=== PATIENT | male | born 1935 | race Hispanic/Latino ===

== ENCOUNTER 2017-12-21 04:39 | Emergency (ER) | payer MEDICARE ==
[2017-12-21 04:51] VITALS: BMI 27.3
[2017-12-21] MEDS ORDERED: Acetaminophen-Codeine 300/30 mg Tab PO ONE (05:00)
--- NOTE | 2017-12-21 05:04 | ED PDOC ---
HPI: Back Time Seen by Provider: 12/21/17 04:58 Chief Complaint (Nursing): Trauma Chief Complaint (Provider): back pain History Per: Patient, EMS, Family History/Exam Limitations: no limitations Onset/Duration Of Symptoms: Mins Current Symptoms Are (Timing): Still Present Additional Complaint(s): 82 y/o male history of hypertension, liver tumors, hyperlipidemia brought in by EMS with son for evaluation of low back pain. Patient states he slipped getting out of bed prior to arrival, landed on buttocks and scraped arms trying to hold himself from falling. Patient reports low back pain. Denies head injury, LOC, dizziness, numbness/weakness lower extremities, bowel/bladder incontinence. Past Medical History Reviewed: Historical Data, Nursing Documentation, Vital Signs Vital Signs: Last Vital Signs Temp 98.4 F 12/21/17 04:51 Pulse 70 12/21/17 04:51 Resp 16 12/21/17 04:51 BP 136/68 12/21/17 04:51 Pulse Ox 99 12/21/17 04:51 - Medical History PMH: HTN, Hypercholesterolemia Denies: Chronic Kidney Disease - Surgical History Surgical History: Hernia Repair - Family History Family History: States: Unknown Family Hx - Immunization History Hx Tetanus Toxoid Vaccination: No Hx Influenza Vaccination: No Hx Pneumococcal Vaccination: No - Home Medications Home Medications: Ambulatory Orders Medication Instructions Recorded Aspirin 325 mg PO HS 10/17/15 Diclofenac Sodium [Voltaren] 1 appl TOP QID PRN 10/17/15 Glimepiride [Amaryl] 4 mg PO BID 10/17/15 Hesperidin/Diosmin [Bioflonex 1 tab PO DAILY 10/17/15 Caplet] Lisinopril [Zestril] 5 mg PO DAILY 10/17/15 Tadalafil [Cialis] 20 mg PO DAILY PRN 10/17/15 Tolterodine Tartrate [Detrol LA] 4 mg PO DAILY 10/17/15 Amoxicillin/Clavulanate [Augmentin 1 tab PO BID #14 tab 10/25/15 875 MG-125 MG] Nitrofurantoin Macrocrystals 100 mg PO BID #14 cap 10/25/15 [Macrobid] metFORMIN [glucOPHAGE] 500 mg PO BIDWM #0 tab 10/25/15 - Allergies Allergies/Adverse Reactions: Allergies Allergy/AdvReac Type Severity Reaction Status Date / Time No Known Allergies Allergy Verified 12/21/17 04:51 Review of Systems ROS Statement: Except As Marked, All Systems Reviewed And Found Negative Musculoskeletal: Positive for: Back Pain Physical Exam - Reviewed Nursing Documentation Reviewed: Yes Vital Signs Reviewed: Yes - Physical Exam Appears: Positive for: Well, Non-toxic, No Acute Distress Head Exam: Positive for: ATRAUMATIC, NORMAL INSPECTION, NORMOCEPHALIC Skin: Positive for: Rash (ecchymosis b/l forearms with + superficial skin tears bilaterally) ENT: Positive for: Normal ENT Inspection Cardiovascular/Chest: Positive for: Regular Rate, Rhythm Respiratory: Positive for: Normal Breath Sounds Gastrointestinal/Abdominal: Positive for: Bowel Sounds, Soft, Distended. Negative for: Tenderness Back: Positive for: Vertebral Tenderness (diffuse lspine; no skin changes, bony deformity), Decreased ROM (secondary to pain lower back/buttock), Muscle Spasm (lspine paravertebral tenderness b/l). Negative for: L CVA Tenderness, R CVA Tenderness Extremity: Positive for: Normal ROM Neurologic/Psych: Positive for: Alert, Oriented (x3) - ECG O2 Sat by Pulse Oximetry: 99 - Progress ED Course And Treament: xray pelvis/hips, CT lspine, Tylenol #3, EKG Disposition - Clinical Impression Clinical Impression: Back pain due to injury - Disposition Disposition Time: 06:00 Condition: STABLE Patient Signed Over To: Phil Ma Y Handoff Comments: pending xray, CT, re-eval
[2017-12-21] MEDS ORDERED: Acetaminophen-Codeine 300/30 mg Tab ONE (05:12)
--- NOTE | 2017-12-21 05:35 | ED PDOC ---
- ECG O2 Sat by Pulse Oximetry: 99 Medical Decision Making Medical Decision Making: signout from Wili acevedo pending CT and dispo. ekg nsr rbbb [address] martínez Disposition - Clinical Impression Clinical Impression: Back pain due to injury - POA Present On Arrival: None - Disposition Disposition: Transfer of Care Disposition Time: 07:00 Condition: STABLE
[2017-12-21 06:48] VITALS: BP 143/71; PULSE 63; RESP 18; TEMP 98.7; O2SAT 100
--- NOTE | 2017-12-21 09:35 | CT ---
Date of service: 12/21/2017 PROCEDURE: CT Lumbar Spine without contrast HISTORY: fall, low back pain COMPARISON: None available. TECHNIQUE: Axial computed tomography images were obtained of the lumbar spine without the use of intravenous contrast. Coronal and sagittal reformatted images were created and reviewed. Radiation dose: Total exam DLP = 1838.78 mGy-cm. This CT exam was performed using one or more of the following dose reduction techniques: Automated exposure control, adjustment of the mA and/or kV according to patient size, and/or use of iterative reconstruction technique. FINDINGS: VERTEBRAE: Unremarkable. No fracture. Normal alignment. Significant disc height loss seen at L3-4 with endplate sclerosis and reactive change as well as vacuum disc changes compatible with advanced degenerative disease. Lesser but significant degenerative disc changes seen at L5-S1 where vacuum disc changes are seen within the disc intrinsically. Multilevel spondylosis appears mild exclusive of L3-4. No suspicious lytic or blastic changes. DISCS/SPINAL CANAL/NEURAL FORAMINA: L1-2: Unremarkable. L2-3: Circumferential disc osteophyte complex is identified combining with facet joint degenerative changes encroaching the lateral recesses but without causing significant central canal stenosis grossly. Borderline bilateral neural foraminal stenosis. L3-4: A large circumferential disc osteophyte complex combines with moderate facet joint degenerative changes resulting in moderate central canal stenosis with mild left and moderate to severe right neural foraminal stenosis due to asymmetry in osteophyte development. L4-5: A circumferential disc osteophyte complex combined with fjni-[id number] facet joint degenerative change resulting in moderate central canal stenosis and mild bilateral neural foraminal stenosis. L5-S1: A circumferential disc osteophyte complex combines with moderate facet degenerative changes resulting in [id number] central canal stenosis a mild bilateral neural foraminal stenosis slightly greater the left and right sides. PREVERTEBRAL AND PARASPINAL SOFT TISSUES: No suspicious findings although mildly atherosclerotic and nonaneurysmal abdominal aortic findings are identified. OTHER FINDINGS: Incidental note is made abdominal ascites. Moderate to severe sacroiliac joint degenerative changes. IMPRESSION: 1. No fracture or spondylolisthesis or large disc herniation appreciable. 2. Multilevel degenerative spinal stenosis seen worst at L4-5 and L5-S1 where moderate central canal stenoses are identified. 3. Variable multilevel neural foraminal stenoses bilaterally. 4. Incidental abdominal ascites and advanced sacroiliac joint degenerative changes. Preliminary report provided by Faustino 12/21/2017.
--- NOTE | 2017-12-21 10:28 | RAD ---
Date of service: 12/21/2017 PROCEDURE: BILATERAL HIPS WITH PELVIS RADIOGRAPHS HISTORY: fall COMPARISON: Abdomen pelvis CT 06/05/2016. TECHNIQUE: Frontal views of the pelvis and bilateral hips of been submitted with frog-leg lateral views bilateral hip joints. FINDINGS: No acute fracture is seen throughout the pelvic ring or either hip joint. No dislocation of either hip joint as well. No destructive bony lesion appreciated throughout. Moderate to severe degenerative joint space narrowing seen the bilateral hip joints comprised of joint space narrowing and articular cortical sclerosis with limited osteophyte development present as well. Pubic symphysis appears intact swells remaining pubic bony anatomy. [id number]-[id number] degenerative changes seen the bilateral sacroiliac joints. Local soft tissues reflect surgical clips at the left groin. IMPRESSION: No acute fracture or dislocation bilateral hip joints with the pelvic ring appearing intact throughout as well. 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
--- NOTE | 2017-12-21 17:58 | CARD ---
APPROVED REPORT Date of service: 12/21/2017 EKG Measurement Heart [id number] <Conclusion> Normal sinus rhythm Right bundle branch block Abnormal ECG
== END 2017-12-21 08:57 | disposition home or self-care (01) ==
LOC: H.ER 04:39
DX: M54.9 Dorsalgia, unspecified (principal); W06.XXXA Fall from bed, initial encounter; Y92.003 Bedroom of unspecified non-institutional (private) residence as the place of occurrence of the external cause; E78.00 Pure hypercholesterolemia, unspecified; I10 Essential (primary) hypertension; I45.10 Unspecified right bundle-branch block; M48.061 Spinal stenosis, lumbar region without neurogenic claudication; Z79.82 Long term (current) use of aspirin; Z79.84 Long term (current) use of oral hypoglycemic drugs; M85.80 Other specified disorders of bone density and structure, unspecified site

== ENCOUNTER 2018-01-14 20:18 | Inpatient (IN) | payer MEDICARE ==
[2018-01-14 20:20] VITALS: BMI 27.3
--- NOTE | 2018-01-14 21:27 | ED PDOC ---
HPI: Altered Mental Status Time Seen by Provider: 01/14/18 20:29 Chief Complaint (Nursing): Abdominal Pain Chief Complaint (Provider): Generalized Weakness History Per: Family History/Exam Limitations: Clinical Condition (Altered Mental Status) Onset/Duration Of Symptoms: Days (x3) Current Symptoms Are (Timing): Still Present Additional Complaint(s): 82 year old [place] male, with a history of liver cirrhosis and liver cancer, was brought to the ER by family for progressively generalized weakness for the last 3 days. Family reports patient had an altered mental status and sudden onset rectal bleeding just prior to arrival. Patient was just discharged from [place] on Wednesday after admission for severe ascites and was given Lasix at the time. Swelling improved but mental status continued to progress. Patient was discharged but family reports patient continued to have altered mental status. Today, family reports that patient will not open his eyes and will not talk or get out of bed. History is limited due to patient's clinical condition of altered mental status. History was obtained from the family. [facility]: Dr. Vazquez. Past Medical History Reviewed: Historical Data, Nursing Documentation, Vital Signs Vital Signs: Last Vital Signs Temp 98.4 F 01/14/18 20:26 Pulse 100 H 01/14/18 20:26 Resp 20 01/14/18 20:26 BP 149/73 01/14/18 20:26 Pulse Ox 100 01/14/18 20:26 - Medical History PMH: HTN, Hypercholesterolemia Denies: Chronic Kidney Disease Other PMH: Liver cirrhosis, liver cancer - Surgical History Surgical History: Hernia Repair - Family History Family History: States: Unknown Family Hx - Immunization History Hx Tetanus Toxoid Vaccination: No Hx Influenza Vaccination: No Hx Pneumococcal Vaccination: No - Home Medications Home Medications: Ambulatory Orders Medication Instructions Recorded RX: Aspirin 325 mg PO HS 10/17/15 RX: Lisinopril [Zestril] 5 mg PO DAILY 10/17/15 Celecoxib [Celebrex] 200 mg PO DAILY 01/14/18 Ciprofloxacin/Dexamethasone 4 drop TOP BID 01/14/18 [Ciprodex Otic] Furosemide [Lasix] 20 mg PO DAILY 01/14/18 Mirtazapine [Remeron] 30 mg PO HS 01/14/18 Omeprazole 40 mg PO DAILY 01/14/18 RX: Megestrol [Megace] 40 mg PO BID 01/14/18 Tolterodine [Detrol LA] 1 cap PO DAILY 01/14/18 - Allergies Allergies/Adverse Reactions: Allergies Allergy/AdvReac Type Severity Reaction Status Date / Time No Known Allergies Allergy Verified 01/14/18 20:26 Review of Systems Review Of Systems: ROS cannot be obtained secondary to pt's inabilty to answer questions. (Unable to obtain from patient secondary to clinical condition. History obtained from family. ROS as per HPI.) Constitutional: Positive for: Weakness (generalized) Gastrointestinal: Positive for: Other (Rectal bleeding) Neurological: Positive for: Altered Mental Status Physical Exam - Reviewed Nursing Documentation Reviewed: Yes Vital Signs Reviewed: Yes - Physical Exam Appears: Positive for: In Acute Distress (In acute neurological distress) Head Exam: Positive for: ATRAUMATIC, NORMOCEPHALIC Skin: Positive for: Warm, Dry, Pallor Eye Exam: Positive for: EOMI (roving eye movements). Negative for: Scleral icterus ENT: Positive for: Pharynx Is (clear), Other (Dry mucous membranes; gag reflex intact) Neck: Positive for: Painless ROM, Trachea Midline Cardiovascular/Chest: Positive for: Regular Rate, Rhythm, Edema. Negative for: Murmur Respiratory: Positive for: Normal Breath Sounds. Negative for: Respiratory Distress Gastrointestinal/Abdominal: Positive for: Soft, Distended (diffusely), Other ((+) fluid wave consistent with ascites). Negative for: Mass, Guarding, Rebound Back: Positive for: Normal Inspection. Negative for: Decreased ROM Extremity: Positive for: Pedal Edema, Other (Bilateral upper extremities have multiple areas of ecchymosis as well as large superficial abrsaions; bilateral legs have 2+ pitting leg edema and pedal edema; diffuse erythema of the skin of the anterior tibia with oval shaped superficial lesion to the left lateral lower leg) Lymphatic: Negative for: Adenopathy Neurologic/Psych: Positive for: Other (Obtunded; asterixis in extremities). Negative for: Oriented, Motor/Sensory Deficits (or sensory deficits) - Laboratory Results Result Diagrams: 01/17/18 04:35 01/17/18 04:35 - ECG O2 Sat by Pulse Oximetry: 100 (RA) Pulse Ox Interpretation: Normal Medical Decision Making Medical Decision Making: Initial Impression: Altered mental status Differential includes but not limited to hepatic encephalopathy, sepsis, fluid overload, severe ascites, liver failure, electrolyte abnormality, dehydration, GI bleed, anemia Initial Plan: --Type and screen stat --VBG stat --CT abd/pelvis --CT head --ECG --Ammonia stat --B-type natriuretic stat --CMP --Lipase stat --Magnesium stat --Phosphorous stat --CBC --Partial thromboplastin time --Prothrombin time --Chest X-ray --Blood culture --Urine culture --Urinalysis CT OF THE ABDOMEN AND PELVIS WITHOUT CONTRAST Indications: Abdominal distention. Comparison: 06/05/16 Technique: Volumetric acquisition of the abdomen and pelvis without contrast. Multiplanar reformatted images. Findings: In the interval since the prior study, there apparently has been a multifocal hepatic embolization for tumor. The liver is misshapen when compared to the prior study contains areas of contrast. There is abdominal and pelvic ascites. There is ascites in both inguinal hernias, or right greater than left.extra-abdominal pelvic tissues demonstrates streaky densities within the fat suggesting anasarca.the heart is not enlarged. There is a small left pleural effusionthere is no retroperitoneal. The abdominal aorta is normal in course and caliber. Kidneys unremarkable. Impression: Study lack historical information. When compared to the prior study, it appears patient has undergone embolization or chemoembolizationof a hepatic tumor and development of ascites. Electronically signed on Jan 14, 2018 10:07:58 PM EST by: Colton Levy M.D., Certified by ABR NONCONTRAST CT OF THE BRAIN Indications: Altered mental status. Comparison: None. Technique: Volumetric acquisition of the head without intravenous contrast. Multiplanar reformatted images. Findings:there is opacification of the majority of the left mastoid air cells, likely representing mastoiditis, correlate clinically.the external auditory canal on the left does not appear patent. There are age-appropriate involutional changes. The fourth, third, lateral ventricles are normal size, position, and configuration. There is no midline shift, discernible mass effect, or vascular territorial edema, subdural collections, or recent intracranial hemorrhage. The visualized portions of paranasal sinuses and the right mastoid air cells are well-aerated. Impression: Left mastoiditis. Electronically signed on Jan 14, 2018 9:33:03 PM EST by: Colton Levy M.D., Certified by ABR Elevated lactate Markedly elevated ammonia. Mental status c/w hepatic encephalopathy. Lactulose ordered. WEN Flores Hospitalist for admission (for [facility] physician and ICU.) Scribe Attestation: Documented by Charanjit Bar acting as a scribe for Annia Rossi MD. Provider Scribe Attestation: All medical record entries made by the Scribe were at my direction and personally dictated by me. I have reviewed the chart and agree that the record accurately reflects my personal performance of the history, physical exam, m edical decision making, and the department course for this patient. I have also personally directed, reviewed, and agree with the discharge instructions and disposition. Disposition - Clinical Impression Clinical Impression: Hepatic encephalopathy Counseled Patient/Family Regarding: Studies Performed, Diagnosis - Disposition Disposition Time: 23:00 Condition: CRITICAL - Pt Status Changed To: Hospital Disposition Of: Inpatient - Admit Certification Admit to Inpatient:: After my assessment, the patient will require hospitalization for at least two midnights. This is because of the severity of symptoms shown, intensity of services needed, and/or the medical risk in this patient being treated as an outpatient. - POA Present On Arrival: Falls Or Trauma (risk)
[2018-01-14 22:03] LABS: VENOUS BLOOD GAS BASE EXCESS 2.2 mmol/L (0.0-2.0); VENOUS BLOOD GAS PCO2 33 mmHg (40-60); VENOUS BLOOD GAS PO2 46 mm/Hg (30-55); VENOUS BLOOD PH 7.49 (7.32-7.43)
[2018-01-14 22:28] LABS: BASO % 0.7 % (0.0-2.0); EOS # 0.2 K/uL (0.0-0.7); EOS % 4.2 % (0.0-4.0); HEMOGLOBIN 11.6 g/dL (12.0-18.0); LYMPH # 0.8 K/uL (1.0-4.3); LYMPH % 16.5 % (20.0-40.0); MEAN CORPUSCULAR HEMOGLOBIN 34.6 pg (27.0-31.0); MEAN CORPUSCULAR HGB CONC 33.3 g/dL (33.0-37.0); MEAN PLATELET VOLUME 8.4 fl (7.2-11.7); MONO # 0.6 K/uL (0.0-0.8); MONO % 11.3 % (0.0-10.0); NEUT # 3.4 K/uL (1.8-7.0); NEUT % 67.3 % (50.0-75.0); NRBC % 0.1 % (0.0-0.0); RBC 3.36 Mil/uL (4.40-5.90); RED CELL DISTRIBUTION WIDTH 14.8 % (11.5-14.5); WHITE BLOOD COUNT 5.1 K/uL (4.8-10.8)
[2018-01-14 22:34] LABS: INR 1.3; PROTHROMBIN TIME 14.4 Seconds (9.8-13.1)
[2018-01-14 22:37] LABS: PARTIAL THROMBOPLASTIN TIME 28.1 Seconds (25.6-37.1)
[2018-01-14 22:48] LABS: ALB/GLOB RATIO 0.6 (1.0-2.1); ALBUMIN 2.4 g/dL (3.5-5.0); ALT/SGPT 60 U/L (21-72); AST/SGOT 112 U/L (17-59); BLOOD UREA NITROGEN 27 mg/dl (9-20); CALCIUM 8.4 mg/dL (8.4-10.2); GFR NON-AFRICAN AMERICAN > 60; LIPASE 188 U/L (23-300)
[2018-01-14 22:55] LABS: B-TYPE NATRIURETIC PEPTIDE 734 pg/ml (0-900)
--- NOTE | 2018-01-14 23:17 | CP.PCM.HP ---
History of Present Illness - History of Present Illness History of Present Illness: [facility]: Dr. Vazquez. Chief Complaint: Altered mental status/Abdominal pain The patient was seen and examined in the ED HPI: The hx was obtained from the Patient's son as the patient was in a state of lethargy. This is an 82 years old male with hx of HTN; HLD; Liver cancer receiving chemotherapy. He was brought to the ED because of 3 days of progressive worsening lethargy, generalized weakness, not eating not opening the eyes and today unset of rectal bleeding. Through this time his abdomen has been increasing in size with complaint of abdominal pain. He was admitted with Ascites and discharged from [facility] 5 days prior to this admission. PMH: HTN; HLD; Liver Cirrhosis, Liver Cancer; anemia; Thrombocytopenia PSH: Hernia repair; multiple problems with the liver SH: Former Smoker; No Alcohol ; No illegal drug use; live with family FH: No known Family hx Medication: Reviewed Present on Admission - Present on Admission Any Indicators Present on Admission: No History of DVT/PE: No History of Uncontrolled Diabetes: No Urinary Catheter: No Decubitus Ulcer Present: No Review of Systems - Review of Systems Review of Systems: Review of systems limited as the patient is lethargic. Past Patient History - Infectious Disease Hx of Infectious Diseases: None - Tetanus Immunizations Tetanus Immunization: Unknown - Past Medical History & Family History Past Medical History?: Yes - Past Social History Smoking Status: Former Smoker Chewing Tobacco Use: No Cigar Use: No Alcohol: None Drugs: Denies Home Situation {Lives}: With Family - CARDIAC Hx Hypercholesterolemia: Yes Hx Hypertension: Yes - PULMONARY Hx Respiratory Disorders: No - NEUROLOGICAL Hx Neurological Disorder: No - HEENT Hx HEENT Problems: No - RENAL Hx Chronic Kidney Disease: No - ENDOCRINE/METABOLIC Hx Diabetes Mellitus Type 2: Yes - HEMATOLOGICAL/ONCOLOGICAL Hx Blood Disorders: Yes Hx Cancer: Yes (Liver) - INTEGUMENTARY Hx Dermatological Problems: No - MUSCULOSKELETAL/RHEUMATOLOGICAL Hx Falls: No - GASTROINTESTINAL Hx Gastrointestinal Disorders: No - GENITOURINARY/GYNECOLOGICAL Hx Genitourinary Disorders: No - PSYCHIATRIC Hx Psychophysiologic Disorder: No Hx Substance Use: No - SURGICAL HISTORY Hx Surgeries: Yes Hx Herniorrhaphy: Yes (multiple) Other/Comment: son reports multiple procedures on liver-son does not know specifics - ANESTHESIA Hx Anesthesia: Yes Hx Anesthesia Reactions: No Hx Malignant Hyperthermia: No Meds Allergies/Adverse Reactions: Allergies Allergy/AdvReac Type Severity Reaction Status Date / Time No Known Allergies Allergy Verified 01/14/18 20:26 Physical Exam - Constitutional Appears: Confused, Chronically Ill - Head Exam Head Exam: ATRAUMATIC, NORMAL INSPECTION, NORMOCEPHALIC - Eye Exam Eye Exam: EOMI - ENT Exam ENT Exam: Mucous Membranes Dry, Normal Exam, Normal External Ear Exam - Neck Exam Neck exam: Positive for: Full Rom, Normal Inspection. Negative for: Tenderness - Respiratory Exam Respiratory Exam: Clear to Auscultation Bilateral. absent: Rales, Rhonchi, Wheezes - Cardiovascular Exam Cardiovascular Exam: REGULAR RHYTHM, RRR, +S1, +S2 - GI/Abdominal Exam Additional comments: Abdomen distended, tense, with liquid thrills. - Rectal Exam Rectal Exam: Deferred - Extremities Exam Additional comments: 2+ edema to both lower extremities - Back Exam Back exam: NORMAL INSPECTION - Neurological Exam Additional comments: Lethargic but with agitation, no facial droop, moving both upper etremities, good motor tone. - Psychiatric Exam Psychiatric exam: Agitated - Skin Additional comments: Both legs with erythematos rash of stasis dermatitis Multiple patches of ecchymosis at both upper extremities Results - Vital Signs Recent Vital Signs: Last Vital Signs Temp 98.4 F 01/14/18 20:26 Pulse 100 H 01/14/18 20:26 Resp 20 01/14/18 20:26 BP 149/73 01/14/18 20:26 Pulse Ox 100 01/14/18 22:15 - Labs Result Diagrams: 01/14/18 22:24 01/14/18 22:24 Labs: Laboratory Results - last 24 hr 01/14/18 01/14/18 01/14/18 21:50 22:24 22:24 WBC RBC Hgb Hct MCV MCH MCHC RDW Plt Count MPV Neut % (Auto) Lymph % (Auto) [place] % (Auto) Eos % (Auto) Baso % (Auto) Neut # (Auto) Lymph # (Auto) [place] # (Auto) Eos # (Auto) Baso # (Auto) PT INR APTT pO2 46 VBG pH 7.49 H VBG pCO2 33 L VBG HCO3 26.3 VBG Total CO2 26.1 VBG O2 Sat (Calc) 87.6 H VBG Base Excess 2.2 H VBG Potassium 3.9 Sodium 137.0 136 Chloride 106.0 107 Glucose 195 H Lactate 2.2 H FiO2 21.0 Potassium 4.1 Carbon Dioxide 23 Anion Gap 10 BUN 27 H Creatinine 1.1 Est GFR ( Amer) > 60 Est GFR (Non-Af Amer) > 60 Random Glucose 191 H Calcium 8.4 Phosphorus 2.7 Magnesium 1.7 Total Bilirubin 2.1 H AST 112 H ALT 60 Alkaline Phosphatase 217 H Ammonia 138 H* NT-Pro-B Natriuret Pep 734 Total Protein 6.3 Albumin 2.4 L Globulin 4.0 H Albumin/Globulin Ratio 0.6 L Lipase 188 Venous Blood Potassium 3.9 01/14/18 01/14/18 22:24 22:24 WBC 5.1 RBC 3.36 L Hgb 11.6 L Hct 35.0 MCV 104.0 H D MCH 34.6 H MCHC 33.3 RDW 14.8 H Plt Count 124 L D MPV 8.4 Neut % (Auto) 67.3 Lymph % (Auto) 16.5 L [place] % (Auto) 11.3 H Eos % (Auto) 4.2 H Baso % (Auto) 0.7 Neut # (Auto) 3.4 Lymph # (Auto) 0.8 L [place] # (Auto) 0.6 Eos # (Auto) 0.2 Baso # (Auto) 0.0 PT 14.4 H INR 1.3 APTT 28.1 pO2 VBG pH VBG pCO2 VBG HCO3 VBG Total CO2 VBG O2 Sat (Calc) VBG Base Excess VBG Potassium Sodium Chloride Glucose Lactate FiO2 Potassium Carbon Dioxide Anion Gap BUN Creatinine Est GFR ( Amer) Est GFR (Non-Af Amer) Random Glucose Calcium Phosphorus Magnesium Total Bilirubin AST ALT Alkaline Phosphatase Ammonia NT-Pro-B Natriuret Pep Total Protein Albumin Globulin Albumin/Globulin Ratio Lipase Venous Blood Potassium - Impressions Impression: Sinus Rhythm 93/min RBBB with 1st degree AV block left fascicular block - Imaging and Cardiology Chest x-ray Status: Image reviewed by me Additional comment: Opacity at the left base CT scan - head Status: Image reviewed by me, Report reviewed by me Additional comment: No intracraneal bleed Left mastoiditis CT scan - abdomen Status: Image reviewed by me, Report reviewed by me Additional comment: When compared to the prior study, it appears, patient has undergone embolization or chemoembolization of a hepatic tumor and development of ascites/ Assessment & Plan - Assessment and Plan (Free Text) Assessment: #. Hepatic Encephalopathy #. Liver Cancer wtih Ascites #. Anemia #. Thrombocytopenia #. Azotemia #. Hyperglycemia Plan: 82 years old male with hx of HTN; HLD; Liver cancer receiving chemotherapy. He was brought to the ED because of 3 days of progressive worsening abdomen distention and pain, lethargy, generalized weakness, not eating not opening the eyes and today unset of rectal bleeding. He was admitted with Ascites and discharged from [facility] 5 days prior to this admission. #. Hepatic Encephalopathy with hyperammonemia - Consult Orchestrator Dr Segovia - NPO except meds - Swallow evaluation(The Patient failed [place] evaluation by nurses) - neuro checks Q2H - Lactulose Per rectum Q6H - IV Fluids with Ringer's Lactate - Lasix IVP #. Liver Cancer with Ascites - Consult Oncology Dr Russell - GI on consult - lasix IV - Consult IR for paracentesis #. Anemia with Thrombocytopenia - Hematology on consult - follow Hb and Platelets #. Hyperglycemia - follow HbA1c #. DVT Prophylaxis: SCD - Code Status: Full - Date & Time Date: 01/14/18 Time: 23:17
[2018-01-14] MEDS ORDERED: Lactated Ringer's 1,000 ML IV SCH (23:45)
[2018-01-15] MEDS ORDERED: Lactulose 10 gm/15 ml (Rectal Use) PR SCH (04:00)
[2018-01-15 06:24] LABS: BASO % 0.7 % (0.0-2.0); EOS # 0.2 K/uL (0.0-0.7); EOS % 4.7 % (0.0-4.0); HEMOGLOBIN 12.1 g/dL (12.0-18.0); LYMPH # 0.9 K/uL (1.0-4.3); MEAN CELL VOLUME 103.2 fl (80.0-94.0); MEAN CORPUSCULAR HGB CONC 33.9 g/dL (33.0-37.0); MEAN PLATELET VOLUME 8.3 fl (7.2-11.7); MONO # 0.6 K/uL (0.0-0.8); MONO % 12.3 % (0.0-10.0); NEUT # 3.4 K/uL (1.8-7.0); NEUT % 65.3 % (50.0-75.0); NRBC % 0.2 % (0.0-0.0); RBC 3.45 Mil/uL (4.40-5.90); RED CELL DISTRIBUTION WIDTH 14.7 % (11.5-14.5); WHITE BLOOD COUNT 5.1 K/uL (4.8-10.8)
[2018-01-15 06:48] LABS: ALB/GLOB RATIO 0.6 (1.0-2.1); ALBUMIN 2.4 g/dL (3.5-5.0); ALT/SGPT 60 U/L (21-72); AST/SGOT 115 U/L (17-59); BLOOD UREA NITROGEN 25 mg/dl (9-20); CALCIUM 8.6 mg/dL (8.4-10.2); GFR NON-AFRICAN AMERICAN > 60
--- NOTE | 2018-01-15 07:11 | CT ---
Date of service: 01/14/2018 PROCEDURE: CT HEAD WITHOUT CONTRAST. HISTORY: AMS COMPARISON: None available. TECHNIQUE: Axial computed tomography images were obtained through the head/brain without intravenous contrast. Radiation dose: Total exam DLP = 929.78 mGy-cm. This CT exam was performed using one or more of the following dose reduction techniques: Automated exposure control, adjustment of the mA and/or kV according to patient size, and/or use of iterative reconstruction technique. FINDINGS: HEMORRHAGE: No intracranial hemorrhage. BRAIN: No mass effect or edema. Mild atrophy and chronic periventricular white matter ischemic disease. VENTRICLES: Unremarkable. No hydrocephalus. CALVARIUM: Unremarkable. PARANASAL SINUSES: Unremarkable as visualized. No significant inflammatory changes. MASTOID AIR CELLS: Unremarkable as visualized. No inflammatory changes. OTHER FINDINGS: None. IMPRESSION: No acute hemorrhage.
--- NOTE | 2018-01-15 07:44 | RAD ---
Date of service: 01/14/2018 HISTORY: AMS COMPARISON: No prior. FINDINGS: LUNGS: Bilateral interstitial changes. PLEURA: No significant pleural effusion identified, no pneumothorax apparent. CARDIOVASCULAR: No aortic atherosclerotic calcification present. Normal cardiac size. No pulmonary vascular congestion. OSSEOUS STRUCTURES: No significant abnormalities. VISUALIZED UPPER ABDOMEN: Normal. OTHER FINDINGS: None. IMPRESSION: Bilateral interstitial changes probably fibrosis.
[2018-01-15] MEDS ORDERED: Chlorhexidine Gluconate 1 APPL/PKT TP ONE (07:57)
--- NOTE | 2018-01-15 08:24 | CT ---
Date of service: 01/14/2018 PROCEDURE: CT Abdomen and Pelvis without intravenous contrast HISTORY: Abd distension COMPARISON: 06/05/2016 TECHNIQUE: Technique. Contrast dose: Radiation dose: Total exam DLP = 966.96 mGy-cm. This CT exam was performed using one or more of the following dose reduction techniques: Automated exposure control, adjustment of the mA and/or kV according to patient size, and/or use of iterative reconstruction technique. FINDINGS: LOWER THORAX: Small left pleural effusion. LIVER: Marked retraction and deformity of the liver with multiple calcified masses compatible with chemoembolization. GALLBLADDER AND BILE DUCTS: Unremarkable. PANCREAS: Unremarkable. No gross lesion or ductal dilatation. SPLEEN: Unremarkable. ADRENALS: Unremarkable. No mass. KIDNEYS AND URETERS: Unremarkable. No hydronephrosis. No solid mass. VASCULATURE: Unremarkable. No aortic aneurysm. No aortic atherosclerotic calcification or mural plaque present. BOWEL: Unremarkable. No obstruction. No gross mural thickening. APPENDIX: Unremarkable. Normal appendix. PERITONEUM: Severe ascites. LYMPH NODES: Unremarkable. No enlarged lymph nodes. BLADDER: Unremarkable. REPRODUCTIVE: Unremarkable. BONES: No acute fracture. OTHER FINDINGS: None. IMPRESSION: Marked retraction and deformity of the liver with multiple calcified masses compatible with chemoembolization. Severe ascites. Small left pleural effusion.
--- NOTE | 2018-01-15 13:03 | CP.PCM.PN ---
<Sarahy Uriostegui Zoe - Last Filed: 01/15/18 13:26> Subjective - Date & Time of Evaluation Date of Evaluation: 01/15/18 Time of Evaluation: 08:50 - Subjective Subjective: Patient was seen, and examined at bedside this morning in ICU unit with attending, Dr. Suarez. Pt is seen lethargic, with minimal responsive to verbal, and tactile stimuli. Nurse reports that pt has not had a bowel movements since admission. NGT inserted by nurse this morning. Afebrile. Godinez Cath in placed. I & O Noted. No events overnight. Objective - Vital Signs/Intake and Output Vital Signs (last 24 hours): Temp Pulse Resp BP Pulse Ox 99.1 F 92 H 19 100/52 L 98 01/15/18 12:00 01/15/18 12:00 01/15/18 12:00 01/15/18 12:00 01/15/18 12:00 Intake and Output: 01/15/18 01/15/18 06:59 18:59 Intake Total 300 375 Output Total 3000 Balance -2700 375 - Medications Medications: Current Medications Furosemide (Lasix) 20 mg IVP DAILY [facility] Lactated Ringer's (Lactated Ringer's) 1,000 mls @ 75 mls/hr IV .[id number] [facility] Last Admin: 01/15/18 02:01 Dose: 75 mls/hr Lactulose (Enulose) 20 gm NG Q6 [facility] Last Admin: 01/15/18 09:54 Dose: 20 gm Pantoprazole Sodium (Protonix Inj) 40 mg IVP DAILY [facility] Last Admin: 01/15/18 08:42 Dose: 40 mg - Labs Labs: 01/15/18 05:25 01/15/18 05:25 PT 14.4 Seconds (9.8-13.1) H 01/14/18 22:24 INR 1.3 01/14/18 22:24 APTT 28.1 Seconds (25.6-37.1) 01/14/18 22:24 - Skin Additional comments: Constitutional Appears: Lethargic, Chronically Ill - Head Exam Head Exam: ATRAUMATIC, NORMAL INSPECTION, NORMOCEPHALIC - Eye Exam Eye Exam: EOMI - ENT Exam ENT Exam: Mucous Membranes Dry, Normal Exam, Normal External Ear Exam - Neck Exam Neck exam: Positive for: Full Rom, Normal Inspection. Negative for: Tenderness - Respiratory Exam Respiratory Exam: Clear to Auscultation Bilateral. absent: Rales, Rhonchi, Wheezes - Cardiovascular Exam Cardiovascular Exam: REGULAR RHYTHM, RRR, +S1, +S2 - GI/Abdominal Exam Additional comments: Abdomen distended, tense, with liquid thrills. - Extremities Exam Additional comments: 2+ edema to both lower extremities - Back Exam Back exam: NORMAL INSPECTION - Neurological Exam Additional comments: Lethargic but without agitation, no facial droop, moving both upper etremities, good motor tone. - Skin Additional comments: Both legs with erythematos rash of stasis dermatitis Multiple patches of ecchymosis at both upper extremities Assessment and Plan - Assessment and Plan (Free Text) Assessment: 82 years old male with hx of HTN; HLD; Liver cancer receiving chemotherapy. He was brought to the ED because of 3 days of progressive worsening abdomen distention and pain, lethargy, generalized weakness, not eating not opening the eye, and episode of rectal bleeding. He was admitted with Ascites and discharged from [facility] 5 days prior to this admission. On admission ammonia levels elevated. Pt BERENICE most likely 2/2 Hepatic encephalopathy. Plan: Hepatic Encephalopathy with hyperammonemia - Consult Data Management Dr Segovia. Pending eval. Recs are appreciated - NPO except meds -will transfer to Tele unit - Swallow evaluation (The Patient failed Swallow evaluation on admission by nurses) -NG tube inserted by nurse in ICU unit -DC Lactulose Per rectum Q6H -Start Lactulose 20 gm Q6 ant to get 1-2 BMs daily -held IV Fluids for now due to significant ascitis -held Lasix IVP for now, I& O checked: balance -2700 ml Liver Cancer with Ascites - Consult Oncology Dr Russell. Pending eval. Recs are appreciated - GI on consult. Pending eval. Recs are appreciated -held Lasix IVP for now, I& O checked: balance -2700 ml - Consult IR for paracentesis Anemia with Thrombocytopenia - Hematology on consult - Hgb stable - Platelets improved from 124 to 134 Hyperglycemia - follow HbA1c DVT Prophylaxis: SCD reported rectal bleeding on admission - Code Status: Full <Jessica Suarez - Last Filed: 01/16/18 09:26> Objective - Vital Signs/Intake and Output Vital Signs (last 24 hours): Temp Pulse Resp BP Pulse Ox 98.2 F 91 H 17 129/69 99 01/16/18 04:00 01/16/18 05:57 01/16/18 05:57 01/16/18 05:57 01/16/18 05:57 Intake and Output: 01/16/18 01/16/18 06:59 18:59 Intake Total 770 Output Total 350 Balance 420 - Medications Medications: Current Medications Furosemide (Lasix) 20 mg IVP DAILY [facility] Potassium Chloride/Dextrose/Sod Cl (Potassium Chl 20 Meq In D5-1/2ns) 1,000 mls @ 50 mls/hr IV .Q20H ANT Stop: 01/16/18 15:55 Last Admin: 01/15/18 16:27 Dose: 50 mls/hr Dextrose/Sodium Chloride (Dextrose 5%/0.9% Ns 1000 Ml) 1,000 mls @ 50 mls/hr IV .Q20H ANT Stop: 01/17/18 06:58 Last Admin: 01/16/18 09:03 Dose: 50 mls/hr Lactulose (Enulose) 20 gm NG Q6 ANT Last Admin: 01/16/18 09:11 Dose: 20 gm Pantoprazole Sodium (Protonix Inj) 40 mg IVP DAILY [facility] Last Admin: 01/16/18 09:04 Dose: 40 mg Rifaximin (Xifaxan) 550 mg PO BID [facility]; Protocol Last Admin: 01/16/18 09:06 Dose: 550 mg - Labs Labs: 01/16/18 05:30 01/16/18 05:30 PT 14.4 Seconds (9.8-13.1) H 01/14/18 22:24 INR 1.3 01/14/18 22:24 APTT 28.1 Seconds (25.6-37.1) 01/14/18 22:24 Attending/Attestation - Attestation I have personally seen and examined this patient.: Yes I have fully participated in the care of the patient.: Yes I have reviewed all pertinent clinical information, including history, physical exam and plan: Yes Notes (Text): 01/16/18 09:25 Seen examined and discussed with resident. Agree with findings and plan as above. Cont to be lethargic, not easily arousable. Resume maintenance fluids as patient is NPO, hold lasix. GI consult appreciated, Lactulose [id number], add Rifaximin BID. 01/16/18 09:26
[2018-01-15] MEDS ORDERED: Potassium Chloride 20 MEQ in Dextrose 5%-0.45% NS 500 ML IV SCH (15:30)
[2018-01-15] MEDS ORDERED: Potassium Ch 20mEq in D5-1/2NS 1,000 ML IV SCH (16:00)
--- NOTE | 2018-01-15 17:37 | CARD ---
APPROVED REPORT Date of service: 01/14/2018 EKG Measurement Heart [id number] <Conclusion> Sinus rhythm with 1st degree AV block Right bundle branch block Left anterior fascicular block Bifascicular block Abnormal ECG
[2018-01-15 17:38] LABS: SQUAMOUS EPITHIAL 1 /hpf (0-5); URINE BACTERIA RARE (<OCC); URINE BILIRUBIN NEGATIVE (NEGATIVE); URINE BLOOD NEGATIVE (NEGATIVE); URINE CLARITY SLIGHTY-CLOUDY (Clear); URINE COLOR AMBER (YELLOW); URINE GLUCOSE (UA) NEG (Normal); URINE LEUKOCYTE ESTERASE NEG Leu/uL (Negative); URINE PROTEIN NEGATIVE (NEGATIVE)
[2018-01-16 06:14] LABS: BASO % 0.5 % (0.0-2.0); EOS # 0.2 K/uL (0.0-0.7); EOS % 3.5 % (0.0-4.0); HEMOGLOBIN 12.7 g/dL (12.0-18.0); LYMPH # 0.8 K/uL (1.0-4.3); LYMPH % 14.9 % (20.0-40.0); MEAN CELL VOLUME 103.8 fl (80.0-94.0); MEAN CORPUSCULAR HEMOGLOBIN 35.2 pg (27.0-31.0); MEAN CORPUSCULAR HGB CONC 33.9 g/dL (33.0-37.0); MONO # 0.6 K/uL (0.0-0.8); NEUT # 3.6 K/uL (1.8-7.0); NEUT % 70.1 % (50.0-75.0); NRBC % 0.2 % (0.0-0.0); RBC 3.59 Mil/uL (4.40-5.90); RED CELL DISTRIBUTION WIDTH 14.5 % (11.5-14.5); WHITE BLOOD COUNT 5.2 K/uL (4.8-10.8)
[2018-01-16 06:35] LABS: BLOOD UREA NITROGEN 28 mg/dl (9-20); CALCIUM 8.5 mg/dL (8.4-10.2); GFR NON-AFRICAN AMERICAN > 60
[2018-01-16] MEDS: Dextrose 5%/0.9% NS 1,000 ML IV SCH (09:03)
--- NOTE | 2018-01-16 09:38 | CP.PCM.PN ---
<Sarahy Uriostegui - Last Filed: 01/16/18 11:28> Subjective - Date & Time of Evaluation Date of Evaluation: 01/16/18 Time of Evaluation: 08:10 - Subjective Subjective: Patient seen, and examined at bedside this morning in ICU unit. Patient slightly responsive to verbal stimuli, but still lethargic. Opening eyes intermittently. As per nurse report he had a bowel movement, soft pasty, brownish color early this morning. Afebrile. I & O reviewed. Objective - Vital Signs/Intake and Output Vital Signs (last 24 hours): Temp Pulse Resp BP Pulse Ox 98.2 F 91 H 17 129/69 99 01/16/18 04:00 01/16/18 05:57 01/16/18 05:57 01/16/18 05:57 01/16/18 05:57 Intake and Output: 01/16/18 01/16/18 06:59 18:59 Intake Total 770 Output Total 350 Balance 420 - Medications Medications: Current Medications Furosemide (Lasix) 20 mg IVP DAILY [facility] Potassium Chloride/Dextrose/Sod Cl (Potassium Chl 20 Meq In D5-1/2ns) 1,000 mls @ 50 mls/hr IV .Q20H ANT Stop: 01/16/18 15:55 Last Admin: 01/15/18 16:27 Dose: 50 mls/hr Dextrose/Sodium Chloride (Dextrose 5%/0.9% Ns 1000 Ml) 1,000 mls @ 50 mls/hr IV .Q20H ANT Stop: 01/17/18 06:58 Last Admin: 01/16/18 09:03 Dose: 50 mls/hr Lactulose (Enulose) 20 gm NG Q6 ANT Last Admin: 01/16/18 09:11 Dose: 20 gm Pantoprazole Sodium (Protonix Inj) 40 mg IVP DAILY [facility] Last Admin: 01/16/18 09:04 Dose: 40 mg Rifaximin (Xifaxan) 550 mg PO BID [facility]; Protocol Last Admin: 01/16/18 09:06 Dose: 550 mg - Labs Labs: 01/16/18 05:30 01/16/18 05:30 PT 14.4 Seconds (9.8-13.1) H 01/14/18 22:24 INR 1.3 01/14/18 22:24 APTT 28.1 Seconds (25.6-37.1) 01/14/18 22:24 - Skin Additional comments: Skin Additional comments: Constitutional Appears: Lethargic, but more responsive, Chronically Ill - Head Exam Head Exam: ATRAUMATIC, NORMAL INSPECTION, NORMOCEPHALIC - Eye Exam Eye Exam: EOMI - ENT Exam ENT Exam: Mucous Membranes Dry, Normal Exam, Normal External Ear Exam - Neck Exam Neck exam: Positive for: Full Rom, Normal Inspection. Negative for: Tenderness - Respiratory Exam Respiratory Exam: Clear to Auscultation Bilateral. absent: Rales, Rhonchi, Wheezes - Cardiovascular Exam Cardiovascular Exam: REGULAR RHYTHM, RRR, +S1, +S2 - GI/Abdominal Exam Additional comments: Abdomen distended, tense, with liquid thrills. - Extremities Exam Additional comments: 2+ edema to both lower extremities - Back Exam Back exam: NORMAL INSPECTION Assessment and Plan - Assessment and Plan (Free Text) Assessment: 82 years old male with hx of HTN; HLD; Liver cancer receiving chemotherapy. He was brought to the ED because of 3 days of progressive worsening abdomen distention and pain, lethargy, generalized weakness, not eating not opening the eye, and episode of rectal bleeding. He was admitted with Ascites and discharged from [facility] 5 days prior to this admission. On admission ammonia levels elevated. Pt BERENICE most likely 2/2 Hepatic encephalopathy. Pt had a bowel movement early this morning. Still lethargic, however slightly responsive to verbal stimuli this morning. Continue with lactulose Q6 schedule. Plan: Hepatic Encephalopathy with hyperammonemia On admission patient was very lethargic, unresponsive to verbal stimuli -slowly improving, today slightly responsive to verbal stimuli - Consult Transfusion Nurse Dr Segovia. Consult appreciated. F/U recommendations - NPO except meds -transfer to Tele unit -Swallow evaluation (The Patient failed Swallow evaluation on admission by nurses) -NG tube inserted by nurse in ICU unit -c/w Lactulose 20 gm Q6 ant to get 1-2 BMs daily -gently IV Fluids maintenance for now, due NPO status -held Lasix IVP for now -I& O checked: balance -23 ml Liver Cancer with Ascites - Consult Oncology Dr Russell. Pending eval. Recs are appreciated - GI on consult. Pending eval. Recs are appreciated -held Lasix IVP for now, -I& O checked: balance -23 ml - Consult IR for paracentesis Anemia with Thrombocytopenia - Hematology on consult - Hgb stable - Platelets improved from 124 to 134 Hyperglycemia - HbA1c 6.1, prediabetes range -low carbohydrates diet recommended once pt tolerates PO DVT Prophylaxis: SCD reported rectal bleeding on admission - Code Status: Full <Jessica Suarez - Last Filed: 01/16/18 15:30> Objective - Vital Signs/Intake and Output Vital Signs (last 24 hours): Temp Pulse Resp BP Pulse Ox 97.2 F L 92 H 16 133/72 99 01/16/18 13:00 01/16/18 13:00 01/16/18 13:00 01/16/18 13:00 01/16/18 05:57 Intake and Output: 01/16/18 01/16/18 06:59 18:59 Intake Total 770 300 Output Total 350 Balance 420 300 - Medications Medications: Current Medications Furosemide (Lasix) 20 mg IVP DAILY [facility] Dextrose/Sodium Chloride (Dextrose 5%/0.9% Ns 1000 Ml) 1,000 mls @ 50 mls/hr IV .Q20H ANT Stop: 01/17/18 06:58 Last Admin: 01/16/18 09:03 Dose: 50 mls/hr Lactulose (Generlac) 200 gm GA Q6 ANT Last Admin: 01/16/18 11:37 Dose: Not Given Pantoprazole Sodium (Protonix Inj) 40 mg IVP DAILY [facility] Last Admin: 01/16/18 09:04 Dose: 40 mg Rifaximin (Xifaxan) 550 mg PO BID ANT; Protocol Last Admin: 01/16/18 09:06 Dose: 550 mg - Labs Labs: 01/16/18 05:30 01/16/18 05:30 PT 14.4 Seconds (9.8-13.1) H 01/14/18 22:24 INR 1.3 01/14/18 22:24 APTT 28.1 Seconds (25.6-37.1) 01/14/18 22:24 Attending/Attestation - Attestation I have personally seen and examined this patient.: Yes I have fully participated in the care of the patient.: Yes I have reviewed all pertinent clinical information, including history, physical exam and plan: Yes Notes (Text): 01/16/18 15:30 Seen examined and discussed with resident. Agree with findings and plan as above. By later this afternoon pt was having copious BM and more awake however still lethargic. Pulled NGT. Will continue lactulose GA. Reeval in AM.
[2018-01-16] MEDS: Lactulose 10 gm/15 ml (Rectal Use) PR SCH ×3 (11:37→22:06)
[2018-01-16] MEDS: Mupirocin 2% Oint 1GM UD TOP SCH (21:46)
[2018-01-17] MEDS: Dextrose 5%/0.9% NS 1,000 ML IV SCH (02:48)
[2018-01-17] MEDS: Lactulose 10 gm/15 ml (Rectal Use) PR SCH (04:24)
[2018-01-17 05:40] LABS: BASO % 0.6 % (0.0-2.0); EOS # 0.2 K/uL (0.0-0.7); HEMOGLOBIN 12.4 g/dL (12.0-18.0); LYMPH # 0.8 K/uL (1.0-4.3); LYMPH % 12.5 % (20.0-40.0); MEAN CELL VOLUME 104.2 fl (80.0-94.0); MEAN CORPUSCULAR HEMOGLOBIN 35.4 pg (27.0-31.0); MEAN PLATELET VOLUME 8.5 fl (7.2-11.7); MONO # 0.7 K/uL (0.0-0.8); MONO % 10.3 % (0.0-10.0); NEUT # 4.9 K/uL (1.8-7.0); NEUT % 73.6 % (50.0-75.0); NRBC % 0.1 % (0.0-0.0); RBC 3.5 Mil/uL (4.40-5.90); RED CELL DISTRIBUTION WIDTH 14.4 % (11.5-14.5); WHITE BLOOD COUNT 6.6 K/uL (4.8-10.8)
[2018-01-17 06:02] LABS: BLOOD UREA NITROGEN 28 mg/dl (9-20); CALCIUM 8.2 mg/dL (8.4-10.2); GFR NON-AFRICAN AMERICAN > 60
--- NOTE | 2018-01-17 08:31 | CON ---
DATE: 01/15/2018 REFERRING PHYSICIAN: Dr. Suarez. The patient's clinical history is history of lethargic. His history was obtained from the chart in the past. HISTORY OF PRESENT ILLNESS: This is an 82-year-old male with history of hypertension, hyperlipidemia, HCC receiving chemo embolization, brought in because of worsening lethargy and generalized weakness. The patient has already poor p.o. intake. The patient was admitted 5 days prior to admission. Otherwise, currently lying in bed, confused, and in mild abdominal distress. PAST MEDICAL HISTORY: As above. SURGICAL HISTORY: As above. MEDICATIONS: Have been reviewed. REVIEW OF SYSTEMS: All other systems are unable to be obtained. PHYSICAL EXAMINATION: VITAL SIGNS: Here in the hospital grossly unremarkable. GENERAL: This is a pleasant elderly female, lying in bed, comfortable, in no apparent distress. HEENT: Head, normocephalic and atraumatic. Eyes, pupils are equally reactive to light bilaterally. No conjunctival pallor or icterus. NECK: Supple. Normal range of motion. No lymphadenopathy appreciated. LUNGS: Coarse breath sound bilaterally. HEART: S1 and S2. Regular rate and rhythm. No murmurs appreciated. ABDOMEN: Soft, nontender. Bowel sounds present. No discomfort. No rebound. No guarding. RECTAL: Deferred. EXTREMITIES: Pulses present bilaterally. SKIN: Warm, dry, and intact. NEUROLOGIC: A and O x3 . DIAGNOSTIC DATA: CAT scan is reviewed, shows liver lesions, status post chemo embolization. LABORATORY DATA: Labs include WBC of 5.1, hemoglobin of 12.1, and platelet count is 134. INR 1.3. Ammonia is over 100. Total bili 2.4. ASSESSMENT AND PLAN: This is an 82-year-old man with hepatocellular carcinoma, status post chemoembolization, now with encephalopathy. This has become cirrhotic, aggressive . We will follow the patient with you. Consider . Thank you for the consult. Shawn Segovia MD/ PhD cc: Dr. Suarez.
[2018-01-17] MEDS ORDERED: Albumin Human 25% (12.5 gm/50 ml) IV ONE (09:16)
--- NOTE | 2018-01-17 10:10 | CP.PCM.PN ---
Subjective - Date & Time of Evaluation Date of Evaluation: 01/17/18 Time of Evaluation: 10:09 - Subjective Subjective: more alert Objective - Vital Signs/Intake and Output Vital Signs (last 24 hours): Temp Pulse Resp BP Pulse Ox 98.8 F 91 H 18 115/60 100 01/17/18 04:00 01/17/18 04:00 01/17/18 04:00 01/17/18 04:00 01/17/18 04:00 Intake and Output: 01/17/18 01/17/18 06:59 18:59 Intake Total 2150 Output Total 300 Balance 1850 - Medications Medications: Current Medications Furosemide (Lasix) 20 mg IVP DAILY [facility] Lactulose (Generlac) 200 gm [place] Q6 [facility] Last Admin: 01/17/18 04:24 Dose: 200 gm Mupirocin (Bactroban Ointment) 1 applic TOP BID [facility] Last Admin: 01/16/18 21:46 Dose: 1 applic Pantoprazole Sodium (Protonix Inj) 40 mg IVP DAILY [facility] Last Admin: 01/16/18 09:04 Dose: 40 mg Rifaximin (Xifaxan) 550 mg PO BID [facility]; Protocol Last Admin: 01/16/18 16:59 Dose: Not Given - Labs Labs: 01/17/18 04:35 01/17/18 04:35 PT 14.4 Seconds (9.8-13.1) H 01/14/18 22:24 INR 1.3 01/14/18 22:24 APTT 28.1 Seconds (25.6-37.1) 01/14/18 22:24 - Head Exam Head Exam: NORMOCEPHALIC - Neck Exam Neck Exam: Normal Inspection - Respiratory Exam Respiratory Exam: Clear to Ausculation Bilateral, NORMAL BREATHING PATTERN - Cardiovascular Exam Cardiovascular Exam: REGULAR RHYTHM - GI/Abdominal Exam GI & Abdominal Exam: Soft, Normal Bowel Sounds Assessment and Plan - Assessment and Plan (Free Text) Assessment: 83 yo male with decompensated cirrhosis once speech clears for oral feeds, convert lactulose and xifaxin to PO ADAT
[2018-01-17] MEDS: Mupirocin 2% Oint 1GM UD TOP SCH ×2 (10:12→17:49)
--- NOTE | 2018-01-17 10:36 | CP.PCM.PN ---
<MaggieJeronimo - Last Filed: 01/17/18 10:49> Subjective - Date & Time of Evaluation Date of Evaluation: 01/17/18 Time of Evaluation: 10:33 - Subjective Subjective: 83M seen and evaluated this morning in ICU. Patients son present at bedside. Patient is responsive to verbal stimuli. Patient communicates he is thirsty. Patient states his name audibly. Patients speech is slurred but son states it is his normal. Nurse states there were no acute events overnight. Nurse states MRSA found in nares. Objective - Vital Signs/Intake and Output Vital Signs (last 24 hours): Temp Pulse Resp BP Pulse Ox 98.8 F 91 H 18 115/60 100 01/17/18 04:00 01/17/18 04:00 01/17/18 04:00 01/17/18 04:00 01/17/18 04:00 Intake and Output: 01/17/18 01/17/18 06:59 18:59 Intake Total 2150 Output Total 300 Balance 1850 - Medications Medications: Current Medications Furosemide (Lasix) 20 mg IVP DAILY [facility] Lactulose (Generlac) 200 gm ID Q6 [facility] Last Admin: 01/17/18 04:24 Dose: 200 gm Mupirocin (Bactroban Ointment) 1 applic TOP BID [facility] Last Admin: 01/17/18 10:12 Dose: 1 applic Pantoprazole Sodium (Protonix Inj) 40 mg IVP DAILY [facility] Last Admin: 01/17/18 10:09 Dose: 40 mg Rifaximin (Xifaxan) 550 mg PO BID [facility]; Protocol Last Admin: 01/17/18 10:09 Dose: 550 mg - Labs Labs: 01/17/18 04:35 01/17/18 04:35 PT 14.4 Seconds (9.8-13.1) H 01/14/18 22:24 INR 1.3 01/14/18 22:24 APTT 28.1 Seconds (25.6-37.1) 01/14/18 22:24 - Constitutional Appears: Non-toxic, No Acute Distress, Chronically Ill - Head Exam Head Exam: ATRAUMATIC, NORMAL INSPECTION, NORMOCEPHALIC - Eye Exam Eye Exam: EOMI - ENT Exam ENT Exam: Mucous Membranes Dry, Normal Exam, Normal External Ear Exam - Neck Exam Neck Exam: Full ROM, Normal Inspection. absent: Tenderness - Respiratory Exam Respiratory Exam: Clear to Ausculation Bilateral. absent: Rales, Rhonchi, Wheezes - Cardiovascular Exam Cardiovascular Exam: REGULAR RHYTHM, RRR, +S1, +S2 - GI/Abdominal Exam Additional comments: Abdomen distended, tense, liquid thrills - Extremities Exam Additional comments: 2+ pitting edema noted No lesions or wounds present Cap refill <3 seconds to all digits - Back Exam Back Exam: NORMAL INSPECTION Assessment and Plan - Assessment and Plan (Free Text) Assessment: 82 years old male with hx of HTN; HLD; Liver cancer receiving chemotherapy. He was brought to the ED because of 3 days of progressive worsening abdomen distention and pain, lethargy, generalized weakness, not eating not opening the eye, and episode of rectal bleeding. He was admitted with Ascites and discharged from [facility] 5 days prior to this admission. On admission ammonia levels elevated. Pt BERENICE most likely 2/2 Hepatic encephalopathy. Pt had a bowel movement early this morning. Improved mood and less lethargic, responsive to verbal stimuli, communicating. Continue with lactulose Q6 schedule. Plan: Hepatic Encephalopathy with hyperammonemia On admission patient was very lethargic, unresponsive to verbal stimuli -slowly improving, responsive to verbal stimuli and communicating today - Consult System Analyst Dr Segovia. Consult appreciated. F/U re commendations -isolation, MRSA found in nares -started liquid diet -B12 and folate started -Swallow evaluation (The Patient failed Swallow evaluation on admission by nurses) -c/w Lactulose 20 gm Q6 ant to get 1-2 BMs daily -rifaximin 550mg PO BID -gently IV Fluids maintenance for now -held Lasix IVP for now -I& O checked: balance -23 ml -PT eval and treat ordered - f/u recs Liver Cancer with Ascites - Consult Oncology Dr Russell. Pending eval. Recs are appreciated - GI on consult. Pending eval. Recs are appreciated -held Lasix IVP for now, -I& O checked: balance -23 ml - Consult IR for paracentesis - scheduled for today - albumin 25mg IV ordered once - coag panel ordered - f/u Anemia with Thrombocytopenia - Hematology on consult - Hgb stable - Platelets improved from 124 to 134 Hyperglycemia -HbA1c 6.1, prediabetes range -liquid diet started DVT Prophylaxis: SCD reported rectal bleeding on admission Code Status: Full <Hyun Sahu - Last Filed: 01/17/18 14:25> Objective - Vital Signs/Intake and Output Vital Signs (last 24 hours): Temp Pulse Resp BP Pulse Ox 98.6 F 86 20 122/69 100 01/17/18 09:00 01/17/18 09:00 01/17/18 09:00 01/17/18 09:00 01/17/18 09:00 Intake and Output: 01/17/18 01/17/18 06:59 18:59 Intake Total 2150 540 Output Total 300 Balance 1850 540 - Medications Medications: Current Medications Folic Acid (Folic Acid) 1 mg PO DAILY ANT Furosemide (Lasix) 20 mg IVP DAILY [facility] Lactulose (Enulose) 20 gm PO Q12 ANT Mupirocin (Bactroban Ointment) 1 applic TOP BID [facility] Last Admin: 01/17/18 10:12 Dose: 1 applic Pantoprazole Sodium (Protonix Inj) 40 mg IVP DAILY [facility] Last Admin: 01/17/18 10:09 Dose: 40 mg Rifaximin (Xifaxan) 550 mg PO BID [facility]; Protocol Last Admin: 01/17/18 10:09 Dose: 550 mg Thiamine HCl (Vitamin B1 Tab) 100 mg PO DAILY [facility] Last Admin: 01/17/18 12:49 Dose: 100 mg - Labs Labs: 01/17/18 04:35 01/17/18 04:35 PT 13.8 Seconds (9.8-13.1) H 01/17/18 09:45 INR 1.2 01/17/18 09:45 APTT 29.8 Seconds (25.6-37.1) 01/17/18 09:45 Attending/Attestation - Attestation I have personally seen and examined this patient.: Yes I have fully participated in the care of the patient.: Yes I have reviewed all pertinent clinical information, including history, physical exam and plan: Yes Notes (Text): Liver Cancer with Ascites, Thrombocytopenia and Hepatic Encephalopthy - Hx of Chemoembolization ( done at [facility]) - cont Lactulose and Rifaximin - IR for Paracentesis, Albumin prior to Paracentesis
[2018-01-17 11:00] LABS: INR 1.2; PROTHROMBIN TIME 13.8 Seconds (9.8-13.1)
[2018-01-17 11:03] LABS: PARTIAL THROMBOPLASTIN TIME 29.8 Seconds (25.6-37.1)
[2018-01-18 05:49] LABS: BASO % 0.7 % (0.0-2.0); EOS # 0.1 K/uL (0.0-0.7); EOS % 3.4 % (0.0-4.0); HEMOGLOBIN 10.8 g/dL (12.0-18.0); LYMPH # 0.6 K/uL (1.0-4.3); LYMPH % 14.4 % (20.0-40.0); MEAN CELL VOLUME 103.5 fl (80.0-94.0); MEAN CORPUSCULAR HEMOGLOBIN 35.6 pg (27.0-31.0); MEAN CORPUSCULAR HGB CONC 34.4 g/dL (33.0-37.0); MEAN PLATELET VOLUME 8.3 fl (7.2-11.7); MONO # 0.4 K/uL (0.0-0.8); MONO % 10.6 % (0.0-10.0); NEUT # 2.9 K/uL (1.8-7.0); NEUT % 70.9 % (50.0-75.0); NRBC % 0.1 % (0.0-0.0); RBC 3.04 Mil/uL (4.40-5.90); RED CELL DISTRIBUTION WIDTH 14.3 % (11.5-14.5)
[2018-01-18 06:04] LABS: ALB/GLOB RATIO 0.6 (1.0-2.1); ALBUMIN 2.1 g/dL (3.5-5.0); ALT/SGPT 69 U/L (21-72); AST/SGOT 112 U/L (17-59); BLOOD UREA NITROGEN 28 mg/dl (9-20); CALCIUM 8.2 mg/dL (8.4-10.2); GFR NON-AFRICAN AMERICAN > 60
[2018-01-18] MEDS: Mupirocin 2% Oint 1GM UD TOP SCH ×2 (09:17→16:33)
--- NOTE | 2018-01-18 11:58 | CP.PCM.PN ---
<Jeronimo Serrano - Last Filed: 01/18/18 13:29> Subjective - Date & Time of Evaluation Date of Evaluation: 01/18/18 Time of Evaluation: 11:53 - Subjective Subjective: 83M seen at bedside. Communicative today, improvement from past two days. Tolerating liquid diet. Difficult to obtain revew of systems. No acute complaints. Objective - Vital Signs/Intake and Output Vital Signs (last 24 hours): Temp Pulse Resp BP Pulse Ox 99.1 F 70 16 106/57 L 98 01/18/18 09:00 01/18/18 09:00 01/18/18 09:00 01/18/18 09:18 01/18/18 09:00 Intake and Output: 01/18/18 01/18/18 06:59 18:59 Intake Total 0 100 Output Total 300 100 Balance -300 0 - Medications Medications: Current Medications Folic Acid (Folic Acid) 1 mg PO DAILY [facility] Last Admin: 01/18/18 09:18 Dose: 1 mg Furosemide (Lasix) 20 mg IVP DAILY [facility] Last Admin: 01/18/18 09:18 Dose: 20 mg Lactulose (Enulose) 20 gm PO Q12 [facility] Last Admin: 01/18/18 09:18 Dose: 20 gm Mupirocin (Bactroban Ointment) 1 applic TOP BID [facility] Last Admin: 01/18/18 09:17 Dose: 1 applic Pantoprazole Sodium (Protonix Inj) 40 mg IVP DAILY [facility] Last Admin: 01/18/18 09:19 Dose: 40 mg Rifaximin (Xifaxan) 550 mg PO BID [facility]; Protocol Last Admin: 01/18/18 09:19 Dose: 550 mg Thiamine HCl (Vitamin B1 Tab) 100 mg PO DAILY [facility] Last Admin: 01/18/18 09:19 Dose: 100 mg - Labs Labs: 01/18/18 04:35 01/18/18 04:35 PT 13.8 Seconds (9.8-13.1) H 01/17/18 09:45 INR 1.2 01/17/18 09:45 APTT 29.8 Seconds (25.6-37.1) 01/17/18 09:45 - Constitutional Appears: Non-toxic, No Acute Distress - Head Exam Head Exam: ATRAUMATIC, NORMAL INSPECTION - Eye Exam Eye Exam: EOMI - ENT Exam ENT Exam: Mucous Membranes Moist, Normal Exam - Neck Exam Neck Exam: Full ROM, Normal Inspection - Respiratory Exam Respiratory Exam: Clear to Ausculation Bilateral, NORMAL BREATHING PATTERN - Cardiovascular Exam Cardiovascular Exam: REGULAR RHYTHM, +S1, +S2 - GI/Abdominal Exam Additional comments: Abdomen distended, tense, liquid thrills - Extremities Exam Additional comments: 2+ pitting edema noted No lesions or wounds present Cap refill <3 seconds to all digits - Back Exam Back Exam: NORMAL INSPECTION - Neurological Exam Neurological Exam: Alert, Awake - Psychiatric Exam Psychiatric exam: Normal Affect, Normal Mood - Skin Skin Exam: Intact, Warm Assessment and Plan - Assessment and Plan (Free Text) Assessment: 82 years old male with hx of HTN; HLD; Liver cancer receiving chemotherapy. He was brought to the ED because of 3 days of progressive worsening abdomen distention and pain, lethargy, generalized weakness, not eating not opening the eye, and episode of rectal bleeding. He was admitted with Ascites and discharged from [facility] 5 days prior to this admission. On admission ammonia levels elevated. Pt BERENICE most likely 2/2 Hepatic encephalopathy. Pt has not moved bowels yet today. Improved mood and communicative, responsive to verbal stimuli. Continue with lactulose Q12 schedule. Plan: Hepatic Encephalopathy with hyperammonemia On admission patient was very lethargic, unresponsive to verbal stimuli -Responsive to verbal stimuli, awake and alert today, tolerating liquid diet - Consult Sustainability Coach Dr Segovia. Consult appreciated. F/U winnie mmendations -isolation, MRSA found in nares -B1 and folate continued -Swallow evaluation (The Patient failed Swallow evaluation on admission by nurses) -c/w Lactulose 20 gm Q12 ant to get 1-2 BMs daily -rifaximin 550mg PO BID -gently IV Fluids maintenance for now -Lasix resumed -I& O checked: balance + -PT eval and treat ordered - f/u recs Liver Cancer with Ascites - Consult Oncology Dr Russell. Pending eval. Recs are appreciated - GI on consult. Pending eval. Recs are appreciated - Consult IR for paracentesis - scheduled for today at noon - cell count ordered, body fluid culture ordered - f/u - albumin 25mg IV ordered once - coag panel ordered - f/u Anemia with Thrombocytopenia - Hematology on consult - Hgb stable - Platelets 81 Hyperglycemia -HbA1c 6.1, prediabetes range -liquid diet started DVT Prophylaxis: SCD reported rectal bleeding on admission Code Status: Full <Hyun Sahu - Last Filed: 01/18/18 17:30> Objective - Vital Signs/Intake and Output Vital Signs (last 24 hours): Temp Pulse Resp BP Pulse Ox 97.8 F 88 18 109/55 L 97 01/18/18 16:00 01/18/18 16:00 01/18/18 14:00 01/18/18 16:00 01/18/18 14:00 Intake and Output: 01/18/18 01/18/18 06:59 18:59 Intake Total 0 350 Output Total 300 100 Balance -300 250 - Medications Medications: Current Medications Folic Acid (Folic Acid) 1 mg PO DAILY [facility] Last Admin: 01/18/18 09:18 Dose: 1 mg Furosemide (Lasix) 20 mg IVP DAILY [facility] Last Admin: 01/18/18 09:18 Dose: 20 mg Ceftriaxone Sodium 1 gm/ (Sodium Chloride) 100 mls @ 100 mls/hr IVPB DAILY [facility]; Protocol Last Admin: 01/18/18 16:33 Dose: 100 mls/hr Lactulose (Enulose) 20 gm PO Q12 ANT Last Admin: 01/18/18 09:18 Dose: 20 gm Mupirocin (Bactroban Ointment) 1 applic TOP BID [facility] Last Admin: 01/18/18 16:33 Dose: 1 applic Pantoprazole Sodium (Protonix Inj) 40 mg IVP DAILY [facility] Last Admin: 01/18/18 09:19 Dose: 40 mg Rifaximin (Xifaxan) 550 mg PO BID [facility]; Protocol Last Admin: 01/18/18 16:34 Dose: 550 mg Thiamine HCl (Vitamin B1 Tab) 100 mg PO DAILY AN[facility] Last Admin: 01/18/18 09:19 Dose: 100 mg - Labs Labs: 01/18/18 04:35 01/18/18 04:35 PT 13.8 Seconds (9.8-13.1) H 01/17/18 09:45 INR 1.2 01/17/18 09:45 APTT 29.8 Seconds (25.6-37.1) 01/17/18 09:45 Attending/Attestation - Attestation I have personally seen and examined this patient.: Yes I have fully participated in the care of the patient.: Yes I have reviewed all pertinent clinical information, including history, physical exam and plan: Yes Notes (Text): AMS due to Hepatic Encephalopathy Liver Cancer with Ascites, Thrombocytopenia and Hepatic Encephalopthy - Hx of Chemoembolization ( done at [facility]) - cont Lactulose and Rifaximin -Paracentesis done done , IV Albumin given - Ascitic fluid for culture, cell ct - IV ceftriaxone for SBP prophylaxis
[2018-01-18] MEDS ORDERED: Lidocaine 1% Inj (20ml) ONE (13:30)
[2018-01-18 14:09] LABS: BODY FLUID TYPE PERITONEAL/ASCITES
--- NOTE | 2018-01-18 14:12 | PCM.SURG1 ---
Surgeon's Initial Post Op Note - Surgeon's Notes Surgeon: Sim Velez MD Vessel Captain: NONE Type of Anesthesia: Local Pre-Operative Diagnosis: Ascites Operative Findings: US showed large amount of ascites Post-Operative Diagnosis: Ascites Operation Performed: US guided paracentesis Specimen/Specimens Removed: 5 liters of straw colored fluid Estimated Blood Loss: EBL {In ML}: 0 Blood Products Given: N/A Drains Used: No Drains, Chest Tubes Post-Op Condition: Fair Date of Surgery/Procedure: 01/18/18 Time of Surgery/Procedure: 14:10
[2018-01-18 15:50] LABS: BF GROSS APPEARANCE CLEAR (CLEAR)
[2018-01-18 15:51] LABS: BODY FLUID MONO/MACROPHAGE 20 % (0-0)
[2018-01-18] MEDS ORDERED: Albumin Human 25% (12.5 gm/50 ml) IV ONE (17:28)
[2018-01-19 05:37] LABS: BASO % 0.9 % (0.0-2.0); EOS # 0.2 K/uL (0.0-0.7); EOS % 3.1 % (0.0-4.0); HEMOGLOBIN 11.3 g/dL (12.0-18.0); LYMPH # 0.6 K/uL (1.0-4.3); MEAN CELL VOLUME 104.1 fl (80.0-94.0); MEAN CORPUSCULAR HGB CONC 33.6 g/dL (33.0-37.0); MEAN PLATELET VOLUME 8.6 fl (7.2-11.7); MONO # 0.4 K/uL (0.0-0.8); MONO % 7.6 % (0.0-10.0); NEUT % 77.4 % (50.0-75.0); NRBC % 0.2 % (0.0-0.0); RBC 3.22 Mil/uL (4.40-5.90); RED CELL DISTRIBUTION WIDTH 14.1 % (11.5-14.5); WHITE BLOOD COUNT 5.2 K/uL (4.8-10.8)
[2018-01-19 05:46] LABS: ALB/GLOB RATIO 0.7 (1.0-2.1); ALBUMIN 2.3 g/dL (3.5-5.0); ALT/SGPT 67 U/L (21-72); AST/SGOT 128 U/L (17-59); BLOOD UREA NITROGEN 26 mg/dl (9-20); CALCIUM 8.2 mg/dL (8.4-10.2); GFR NON-AFRICAN AMERICAN > 60
[2018-01-19] MEDS: Mupirocin 2% Oint 1GM UD TOP SCH ×2 (10:07→17:03)
--- NOTE | 2018-01-19 12:33 | CP.PCM.PN ---
<Jeronimo Serrano - Last Filed: 01/19/18 16:00> Subjective - Date & Time of Evaluation Date of Evaluation: 01/19/18 Time of Evaluation: 12:31 - Subjective Subjective: 83M seen at bedside, resting comfortably. In much better spirits today and very communicative. States he is feeling well and only has mild pain in his abdomen that has gone away since this morning. States he had procedure yesterday to drain fluid from his abdomen. Denies N/V/F/C/SOB/CP. States he is able to move bowels. Objective - Vital Signs/Intake and Output Vital Signs (last 24 hours): Temp Pulse Resp BP Pulse Ox 98.4 F 85 20 119/69 96 01/19/18 12:25 01/19/18 12:25 01/19/18 12:25 01/19/18 12:25 01/19/18 12:25 Intake and Output: 01/19/18 01/19/18 06:59 18:59 Output Total 280 Balance -280 - Medications Medications: Current Medications Folic Acid (Folic Acid) 1 mg PO DAILY [facility] BEDS AT [facility] Last Admin: 01/19/18 10:08 Dose: 1 mg Furosemide (Lasix) 20 mg IVP DAILY [facility] 234 BEDS AT [facility] Last Admin: 01/19/18 10:12 Dose: 20 mg Ceftriaxone Sodium 1 gm/ (Sodium Chloride) 100 mls @ 100 mls/hr IVPB DAILY [facility] 234 BEDS AT [facility]; Protocol Last Admin: 01/19/18 10:10 Dose: 100 mls/hr Lactulose (Enulose) 20 gm PO Q12 ANT Last Admin: 01/19/18 10:08 Dose: 20 gm Mupirocin (Bactroban Ointment) 1 applic TOP BID [facility] 234 BEDS AT [facility] Last Admin: 01/19/18 10:07 Dose: 1 applic Pantoprazole Sodium (Protonix Inj) 40 mg IVP DAILY [facility] 234 BEDS AT [facility] Last Admin: 01/19/18 10:09 Dose: 40 mg Rifaximin (Xifaxan) 550 mg PO BID [facility] 234 BEDS AT [facility]; Protocol Last Admin: 01/19/18 10:13 Dose: 550 mg Thiamine HCl (Vitamin B1 Tab) 100 mg PO DAILY [facility] 234 BEDS [facility] Last Admin: 01/19/18 10:13 Dose: 100 mg - Labs Labs: 01/19/18 05:00 01/19/18 05:00 PT 13.8 Seconds (9.8-13.1) H 01/17/18 09:45 INR 1.2 18 09:45 APTT 29.8 Seconds (25.6-37.1) 01/17/18 09:45 - Constitutional Appears: Non-toxic, No Acute Distress - Head Exam Head Exam: ATRAUMATIC, NORMOCEPHALIC - Eye Exam Eye Exam: EOMI - ENT Exam ENT Exam: Mucous Membranes Moist, Normal Exam - Neck Exam Neck Exam: Full ROM, Normal Inspection - Respiratory Exam Respiratory Exam: Clear to Ausculation Bilateral, NORMAL BREATHING PATTERN - Cardiovascular Exam Cardiovascular Exam: REGULAR RHYTHM, +S1, +S2 - GI/Abdominal Exam Additional comments: Abdomen distended - improved, tense, liquid thrills - Extremities Exam Additional comments: 2+ pitting edema noted - improved No lesions or wounds present Cap refill <3 seconds to all digits - Neurological Exam Neurological Exam: Alert, Awake - Psychiatric Exam Psychiatric exam: Normal Affect, Normal Mood - Skin Skin Exam: Dry, Warm Assessment and Plan - Assessment and Plan (Free Text) Assessment: 82M with Ascites, BERENICE most likely 2/2 Hepatic encephalopathy. Improved mood and communicative, responsive to verbal stimuli. Plan: 1. Hepatic Encephalopathy with hyperammonemia On admission patient was very lethargic, unresponsive to verbal stimuli -Responsive to verbal stimuli, awake and alert today, tolerating liquid diet -Consult Cantilever Crane Operator Dr Segovia. Consult appreciated. F/U recommendations -isolation, MRSA found in nares -B1 and folate continued -c/w Lactulose 20 gm Q12 ant to get 1-2 BMs daily -rifaximin 550mg PO BID -rocephin 1 gm daily - day 2 -gently IV Fluids maintenance for now -Lasix resumed -I& O checked: balance + -PT eval and treat ordered - f/u recs 2. Liver Cancer with Ascites - Consult Oncology Dr Russell. Pending eval. Recs are appreciated - GI on consult. Pending eval. Recs are appreciated - Consult IR for paracentesis - Dr. Velez - 5 liters of straw colored fluid - cell count ordered, body fluid culture ordered - pending, f/u - albumin 25mg IV ordered once - coag panel ordered - f/u 3. Anemia with Thrombocytopenia - Hematology on consult - Hgb stable - Platelets 82 4. Hyperglycemia -HbA1c 6.1, prediabetes range -liquid diet started 5. DVT Prophylaxis: SCD reported rectal bleeding on admission 6. Code Status: Full <Hyun Sahu - Last Filed: 01/19/18 16:30> Objective - Vital Signs/Intake and Output Vital Signs (last 24 hours): Temp Pulse Resp BP Pulse Ox 98.2 F 87 18 117/64 96 01/19/18 15:47 01/19/18 15:47 01/19/18 15:47 01/19/18 15:47 01/19/18 15:47 Intake and Output: 01/19/18 01/19/18 06:59 18:59 Output Total 280 Balance -280 - Medications Medications: Current Medications Folic Acid (Folic Acid) 1 mg PO DAILY [facility] 234 BEDS AT [facility] Last Admin: 01/19/18 10:08 Dose: 1 mg Furosemide (Lasix) 20 mg IVP DAILY [facility] 234 BEDS AT [facility] Last Admin: 01/19/18 10:12 Dose: 20 mg Ceftriaxone Sodium 1 gm/ (Sodium Chloride) 100 mls @ 100 mls/hr IVPB DAILY [facility] 234 BEDS AT [facility]; Protocol Last Admin: 01/19/18 10:10 Dose: 100 mls/hr Lactulose (Enulose) 20 gm PO Q12 ANT Last Admin: 01/19/18 10:08 Dose: 20 gm Mupirocin (Bactroban Ointment) 1 applic TOP BID [facility] 234 BEDS AT [facility] Last Admin: 01/19/18 10:07 Dose: 1 applic Pantoprazole Sodium (Protonix Inj) 40 mg IVP DAILY [facility] 234 BEDS AT [facility] Last Admin: 01/19/18 10:09 Dose: 40 mg Rifaximin (Xifaxan) 550 mg PO BID [facility] 234 BEDS AT [facility]; Protocol Last Admin: 01/19/18 10:13 Dose: 550 mg Thiamine HCl (Vitamin B1 Tab) 100 mg PO DAILY [facility] 234 BEDS AT [facility] Last Admin: 01/19/18 10:13 Dose: 100 mg - Labs Labs: 01/19/18 05:00 01/19/18 05:00 PT 13.8 Seconds (9.8-13.1) H 01/17/18 09:45 INR 1.2 01/17/18 09:45 APTT 29.8 Seconds (25.6-37.1) 01/17/18 09:45 Attending/Attestation - Attestation I have personally seen and examined this patient.: Yes I have fully participated in the care of the patient.: Yes I have reviewed all pertinent clinical information, including history, physical exam and plan: Yes
--- NOTE | 2018-01-20 07:31 | CP.PCM.PN ---
Subjective - Date & Time of Evaluation Date of Evaluation: 01/20/18 Time of Evaluation: 07:31 Objective - Vital Signs/Intake and Output Vital Signs (last 24 hours): Temp Pulse Resp BP Pulse Ox 98.2 F 80 18 124/71 98 01/20/18 04:46 01/20/18 04:46 01/20/18 04:46 01/20/18 04:46 01/20/18 04:46 - Medications Medications: Current Medications Folic Acid (Folic Acid) 1 mg PO DAILY [facility] Last Admin: 01/19/18 10:08 Dose: 1 mg Furosemide (Lasix) 20 mg IVP Q12 [facility] Last Admin: 01/19/18 21:09 Dose: 20 mg Ceftriaxone Sodium 1 gm/ (Sodium Chloride) 100 mls @ 100 mls/hr IVPB DAILY [facility]; Protocol Last Admin: 01/19/18 10:10 Dose: 100 mls/hr Lactulose (Enulose) 20 gm PO Q12 [facility] Last Admin: 01/19/18 21:09 Dose: 20 gm Mupirocin (Bactroban Ointment) 1 applic TOP BID [facility] Last Admin: 01/19/18 17:03 Dose: 1 applic Pantoprazole Sodium (Protonix Inj) 40 mg IVP DAILY [facility] Last Admin: 01/19/18 10:09 Dose: 40 mg Rifaximin (Xifaxan) 550 mg PO BID [facility]; Protocol Last Admin: 01/19/18 17:04 Dose: 550 mg Thiamine HCl (Vitamin B1 Tab) 100 mg PO DAILY [facility] Last Admin: 01/19/18 10:13 Dose: 100 mg - Labs Labs: 01/19/18 05:00 01/19/18 05:00 PT 13.8 Seconds (9.8-13.1) H 01/17/18 09:45 INR 1.2 01/17/18 09:45 APTT 29.8 Seconds (25.6-37.1) 01/17/18 09:45
[2018-01-20 08:43] VITALS: RESP 20; TEMP 98
--- NOTE | 2018-01-20 09:16 | CP.PCM.PN ---
Subjective - Date & Time of Evaluation Date of Evaluation: 01/20/18 Time of Evaluation: 09:15 - Subjective Subjective: doing well Objective - Vital Signs/Intake and Output Vital Signs (last 24 hours): Temp Pulse Resp BP Pulse Ox 98.0 F 80 20 117/71 97 01/20/18 08:42 01/20/18 08:42 01/20/18 08:42 01/20/18 08:54 01/20/18 08:42 Intake and Output: 01/20/18 01/20/18 06:59 18:59 Output Total 600 Balance -600 - Medications Medications: Current Medications Folic Acid (Folic Acid) 1 mg PO DAILY [facility] Last Admin: 01/20/18 08:54 Dose: 1 mg Furosemide (Lasix) 20 mg IVP Q12 [facility] Last Admin: 01/20/18 08:54 Dose: 20 mg Ceftriaxone Sodium 1 gm/ (Sodium Chloride) 100 mls @ 100 mls/hr IVPB DAILY [facility]; Protocol Last Admin: 01/19/18 10:10 Dose: 100 mls/hr Lactulose (Enulose) 20 gm PO Q12 [facility] Last Admin: 01/20/18 08:52 Dose: 20 gm Mupirocin (Bactroban Ointment) 1 applic TOP BID [facility] Last Admin: 01/19/18 17:03 Dose: 1 applic Pantoprazole Sodium (Protonix Inj) 40 mg IVP DAILY [facility] Last Admin: 01/20/18 08:59 Dose: 40 mg Rifaximin (Xifaxan) 550 mg PO BID [facility]; Protocol Last Admin: 01/20/18 08:57 Dose: 550 mg Thiamine HCl (Vitamin B1 Tab) 100 mg PO DAILY [facility] Last Admin: 01/20/18 08:57 Dose: 100 mg - Labs Labs: 01/19/18 05:00 01/19/18 05:00 PT 13.8 Seconds (9.8-13.1) H 01/17/18 09:45 INR 1.2 01/17/18 09:45 APTT 29.8 Seconds (25.6-37.1) 01/17/18 09:45 - Head Exam Head Exam: NORMOCEPHALIC - Neck Exam Neck Exam: Normal Inspection - Respiratory Exam Respiratory Exam: Clear to Ausculation Bilateral, NORMAL BREATHING PATTERN - Cardiovascular Exam Cardiovascular Exam: REGULAR RHYTHM - GI/Abdominal Exam GI & Abdominal Exam: Soft, Normal Bowel Sounds Assessment and Plan - Assessment and Plan (Free Text) Assessment: 83 yo male with HCC mentally back to baseline dc planning once able
[2018-01-20 12:40] VITALS: BP 106/70; PULSE 81; O2SAT 98
[2018-01-20] MEDS: Mupirocin 2% Oint 1GM UD TOP SCH (12:43)
--- NOTE | 2018-01-20 13:06 | CP.PCM.DIS ---
Provider - Provider Date of Admission: 01/14/18 23:00 Attending physician: Ivan Flores Consults: 01/14/18 23:58 Gastroenterology Consult Routine Comment: Consulting Provider: Shawn Segovia Consulting Physician: Shawn Segovia Reason for Consult: Liver Cancer/Ascites/hyperammonemia 01/15/18 01:58 Nursing Referral for Palliative Care Routine Comment: Consulting Provider: Nicole Graham Physician Instructions: Reason For Exam: hx of liver CA Nursing Referral for Wound Care Routine Comment: Physician Instructions: Reason For Exam: multiple skin openings 01/20/18 10:15 Palliative Care Consult Routine Comment: Consulting Provider: Nicole Graham Physician Instructions: Reason For Exam: hx of cancer Time Spent in preparation of Discharge (in minutes): 30 Diagnosis - Discharge Diagnosis (1) Hepatic encephalopathy Status: Acute Hospital Course - Lab Results Lab Results: Micro Results 01/18/18 14:05 Peritoneal Fluid Gram Stain - Final 01/18/18 14:05 Peritoneal Fluid Body Fluid Culture - Preliminary NO GROWTH AFTER 2 DAYS 01/14/18 04:30 Blood Blood Culture - Final NO GROWTH AFTER 5 DAYS 01/14/18 04:30 Blood Gram Stain - Final TEST NOT PERFORMED 01/14/18 04:30 Blood Blood Culture - Final NO GROWTH AFTER 5 DAYS 01/14/18 04:30 Blood Gram Stain - Final TEST NOT PERFORMED 01/18/18 18:25 Naris MRSA Culture (Admit) - Final MRSA NOT DETECTED 01/15/18 17:29 Urine,Godinez Urine Culture - Final No Growth (<1,000 CFU/ML) 01/15/18 17:44 Naris MRSA Culture (Admit) - Final MRSA DETECTED Most Recent Lab Values WBC 5.2 K/uL (4.8-10.8) 01/19/18 05:00 RBC 3.22 Mil/uL (4.40-5.90) L 01/19/18 05:00 Hgb 11.3 g/dL (12.0-18.0) L 01/19/18 05:00 Hct 33.5 % (35.0-51.0) L 01/19/18 05:00 MCV 104.1 fl (80.0-94.0) H 01/19/18 05:00 MCH 35.0 pg (27.0-31.0) H 01/19/18 05:00 MCHC 33.6 g/dL (33.0-37.0) 01/19/18 05:00 RDW 14.1 % (11.5-14.5) 01/19/18 05:00 Plt Count 82 K/uL (130-400) L 01/19/18 05:00 MPV 8.6 fl (7.2-11.7) 01/19/18 05:00 Neut % (Auto) 77.4 % (50.0-75.0) H 01/19/18 05:00 Lymph % (Auto) 11.0 % (20.0-40.0) L 01/19/18 05:00 Parke % (Auto) 7.6 % (0.0-10.0) 01/19/18 05:00 Eos % (Auto) 3.1 % (0.0-4.0) 01/19/18 05:00 Baso % (Auto) 0.9 % (0.0-2.0) 01/19/18 05:00 Neut # (Auto) 4.0 K/uL (1.8-7.0) 01/19/18 05:00 Lymph # (Auto) 0.6 K/uL (1.0-4.3) L 01/19/18 05:00 Parke # (Auto) 0.4 K/uL (0.0-0.8) 01/19/18 05:00 Eos # (Auto) 0.2 K/uL (0.0-0.7) 01/19/18 05:00 Baso # (Auto) 0.0 K/uL (0.0-0.2) 01/19/18 05:00 PT 13.8 Seconds (9.8-13.1) H 01/17/18 09:45 INR 1.2 01/17/18 09:45 APTT 29.8 Seconds (25.6-37.1) 01/17/18 09:45 pO2 46 mm/Hg (30-55) 01/14/18 21:50 VBG pH 7.49 (7.32-7.43) H 01/14/18 21:50 VBG pCO2 33 mmHg (40-60) L 01/14/18 21:50 VBG HCO3 26.3 mmol/L 01/14/18 21:50 VBG Total CO2 26.1 mmol/L (22-28) 01/14/18 21:50 VBG O2 Sat (Calc) 87.6 % (40-65) H 01/14/18 21:50 VBG Base Excess 2.2 mmol/L (0.0-2.0) H 01/14/18 21:50 VBG Potassium 3.9 mmol/L (3.6-5.2) 01/14/18 21:50 Sodium 137.0 mmol/L (132-148) 01/14/18 21:50 Chloride 106.0 mmol/L (98-107) 01/14/18 21:50 Glucose 195 mg/dL (75-110) H 01/14/18 21:50 Lactate 2.2 mmol/L (0.7-2.1) H 01/14/18 21:50 FiO2 21.0 % 01/14/18 21:50 Sodium 137 mmol/l (132-148) 01/19/18 05:00 Potassium 3.8 MMOL/L (3.6-5.0) 01/19/18 05:00 Chloride 110 mmol/L (98-107) H 01/19/18 05:00 Carbon Dioxide 21 mmol/L (22-30) L 01/19/18 05:00 Anion Gap 10 (10-20) 01/19/18 05:00 BUN 26 mg/dl (9-20) H 01/19/18 05:00 Creatinine 0.8 mg/dl (0.8-1.5) 01/19/18 05:00 Est GFR ( Amer) > 60 01/19/18 05:00 Est GFR (Non-Af Amer) > 60 01/19/18 05:00 POC Glucose (mg/dL) 204 mg/dL (65-110) H 01/19/18 11:17 Random Glucose 133 mg/dL (75-110) H 01/19/18 05:00 Hemoglobin A1c 6.1 % (4.2-6.5) 01/15/18 06:00 Lactic Acid 1.9 MMOL/L (0.7-2.1) 01/15/18 22:11 Calcium 8.2 mg/dL (8.4-10.2) L 01/19/18 05:00 Phosphorus 2.7 mg/dl (2.5-4.5) 01/14/18 22:24 Magnesium 1.7 MG/DL (1.6-2.3) 01/14/18 22:24 Total Bilirubin 2.2 mg/dl (0.2-1.3) H 01/19/18 05:00 AST 128 U/L (17-59) H 01/19/18 05:00 ALT 67 U/L (21-72) 01/19/18 05:00 Alkaline Phosphatase 233 U/L (38-126) H 01/19/18 05:00 Ammonia 39 umo/L (16-60) D 01/16/18 04:00 NT-Pro-B Natriuret Pep 734 pg/ml (0-900) 01/14/18 22:24 Total Protein 5.9 G/DL (6.3-8.2) L 01/19/18 05:00 Albumin 2.3 g/dL (3.5-5.0) L 01/19/18 05:00 Globulin 3.6 gm/dL (2.2-3.9) 01/19/18 05:00 Albumin/Globulin Ratio 0.7 (1.0-2.1) L 01/19/18 05:00 Lipase 188 U/L (23-300) 01/14/18 22:24 Vitamin B12 793 pg/mL (239-931) 01/17/18 09:45 Folate 12.0 ng/mL 01/17/18 09:45 Venous Blood Potassium 3.9 mmol/L (3.6-5.2) 01/14/18 21:50 Urine Color Akiko (YELLOW) 01/15/18 17:29 Urine Clarity Slighty-cloudy (Clear) 01/15/18 17:29 Urine pH 6.0 (5.0-8.0) 01/15/18 17:29 Ur Specific [place] 1.011 (1.003-1.030) 01/15/18 17:29 Urine Protein Negative mg/dL (NEGATIVE) 01/15/18 17: Urine Glucose (UA) Neg mg/dL (Normal) 01/15/18 17: Urine Ketones Negative mg/dL (NEGATIVE) 01/15/18 17: Urine Blood Negative (NEGATIVE) 01/15/18 17:29 Urine Nitrate Negative (NEGATIVE) 01/15/18 17:29 Urine Bilirubin Negative (NEGATIVE) 01/15/18 17:29 Urine Urobilinogen 1.0 mg/dL (0.2-1.0) 01/15/18 17:29 Ur Leukocyte Esterase Neg Gilma/uL (Negative) 01/15/18 17:29 Urine RBC (Auto) 1 /hpf (0-3) 01/15/18 17:29 Urine Microscopic WBC 5 /hpf (0-5) 01/15/18 17:29 Ur Squamous Epith Cells 1 /hpf (0-5) 01/15/18 17:29 Urine Bacteria Rare (<OCC) 01/15/18 17:29 Fluid Source Peritoneal/ascites 01/18/18 14:05 Fluid Appearance Clear (CLEAR) 01/18/18 14:05 Fluid WBC 90.0 /mm3 (0.0-300.0) 01/18/18 14:05 Fluid RBC 170.0 /mm3 (0.0-0.0) H 01/18/18 14:05 Fluid Tot Cell Count TEST NOT PERFORMED 01/18/18 14:05 Fluid Neutrophils 55.0 % (0-0) H 01/18/18 14:05 Fluid Lymphocytes 25.0 % (0-0) H 01/18/18 14:05 Fld Monocyte/Macrophag 20 % (0-0) H 01/18/18 14:05 Fluid Comment Yellow 01/18/18 14:05 Blood Type O POSITIVE 01/14/18 23:05 Blood Type Confirm O POSITIVE 01/15/18 00:30 Antibody Screen Negative 01/14/18 23:05 BBK History Checked No verified bt 01/14/18 23:05 - Hospital Course Hospital Course: 82M with pmhx of HTN; HLD; Liver Cirrhosis, Liver Cancer; anemia; Thrombocytopen ia seen and evaluated in the ED on 01/14 with generalized weakness, worsening lethargy, and not opening eyes fully or eating. Presented with his son who gave the patients history and is the decision maker along with his brother for the patient. He had been admitted to [facility] 5 days prior to admission and discharged with diagnosis of ascites. While in house patient was started on lactulose and rifaximin as well as lasix. Patient was given folate and b12 while in house as well. MRSA was found in patients nares and most recent culture showed no MRSA. IR was consulted and performed paracentesis and delmy 5 liters of straw colored fluid. Peritoneal fluid culture showed no growth after 2 days. Patient improved in general health and communication and is responding fully to verbal stimuli. GI was consulted while in house and recs were taken. Patient was on 2 days of rocephin while in house. Patient is stable for discharge home today where he lives with his parents and will receive home nursing and PT. He was given prescriptions for commode that he will use bedside as well as home nursing and PT. Also given prescription for lasix once daily and aldactone. - Date & Time of H&P Date of H&P: 01/20/18 Time of H&P: 13:05 Discharge Exam - Head Exam Head Exam: ATRAUMATIC, NORMOCEPHALIC - Eye Exam Eye Exam: EOMI - ENT Exam ENT Exam: Mucous Membranes Moist, Normal Exam - Respiratory Exam Respiratory Exam: Clear to PA & Lateral, NORMAL BREATHING PATTERN - Cardiovascular Exam Cardiovascular Exam: REGULAR RHYTHM, +S1, +S2 - GI/Abdominal Exam Additional comments: Abdomen distended - improved, tense, liquid thrills - Extremities Exam Additional comments: 2+ pitting edema noted - improved No lesions or wounds present Cap refill <3 seconds to all digits - Neurological Exam Neurological exam: Alert - Psychiatric Exam Psychiatric exam: Normal Affect, Normal Mood - Skin Skin Exam: Normal Color, Warm Discharge Plan - Follow Up Plan Condition: CRITICAL Disposition: HOME/ ROUTINE Additional Instructions: Home nursing and physical therapy follow up with prescription Clinical Quality Measures - Date & Time of Discharge Summary Date of Discharge Summary: 01/20/18 Time of Discharge Summary: 13:07
--- NOTE | 2018-01-21 14:08 | CP.PCM.PN ---
Subjective - Date & Time of Evaluation Date of Evaluation: 01/18/18 Time of Evaluation: 18:30 - Subjective Subjective: no overnight events Objective - Vital Signs/Intake and Output Vital Signs (last 24 hours): Temp Pulse Resp BP Pulse Ox 98.0 F 81 20 106/70 98 01/20/18 12:39 01/20/18 12:39 01/20/18 12:39 01/20/18 12:39 01/20/18 12:39 - Labs Labs: 01/19/18 05:00 01/19/18 05:00 PT 13.8 Seconds (9.8-13.1) H 01/17/18 09:45 INR 1.2 01/17/18 09:45 APTT 29.8 Seconds (25.6-37.1) 01/17/18 09:45 - Head Exam Head Exam: NORMOCEPHALIC - Neck Exam Neck Exam: Normal Inspection - Respiratory Exam Respiratory Exam: Clear to Ausculation Bilateral, NORMAL BREATHING PATTERN - Cardiovascular Exam Cardiovascular Exam: REGULAR RHYTHM - GI/Abdominal Exam GI & Abdominal Exam: Distended, Soft, Normal Bowel Sounds Assessment and Plan - Assessment and Plan (Free Text) Assessment: 83 yo male with decompensated cirrhosis doing better ADAT
== END 2018-01-20 15:30 | disposition home or self-care (01) | DRG 442 ==
LOC: H.ER 20:18 → EDBD 20:18 → H.ICU/CCU 23:00 → H.TEL 01-18 17:41
PROVIDERS: ADMIT Internal Medicine; ATTEND Internal Medicine
PROC: 0W9G3ZZ Drainage of Peritoneal Cavity, Percutaneous Approach (ICD-10-PCS; principal; 2018-01-18)
DX: K72.90 Hepatic failure, unspecified without coma (principal); C22.0 Liver cell carcinoma; R18.8 Other ascites; E72.20 Disorder of urea cycle metabolism, unspecified; K62.5 Hemorrhage of anus and rectum; E11.65 Type 2 diabetes mellitus with hyperglycemia; E78.00 Pure hypercholesterolemia, unspecified; E78.5 Hyperlipidemia, unspecified; H70.92 Unspecified mastoiditis, left ear; K74.60 Unspecified cirrhosis of liver; Z87.891 Personal history of nicotine dependence; Z79.82 Long term (current) use of aspirin; I10 Essential (primary) hypertension; D64.9 Anemia, unspecified; D69.6 Thrombocytopenia, unspecified; I44.0 Atrioventricular block, first degree; I45.10 Unspecified right bundle-branch block; R47.81 Slurred speech

== ENCOUNTER 2018-01-31 08:58 | Observation (INO) | payer MEDICARE ==
[2018-01-31 09:01] VITALS: BMI 36.6
--- NOTE | 2018-01-31 10:01 | ED PDOC ---
HPI: General Adult Time Seen by Provider: 01/31/18 09:29 Chief Complaint (Nursing): Weakness/Neurological Deficit Chief Complaint (Provider): Weakness History Per: Family (two sons) History/Exam Limitations: clinical condition Onset/Duration Of Symptoms: Days (x1) Current Symptoms Are (Timing): Still Present Additional Complaint(s): 83 year old male presents to the ED with his two sons for evaluation of generalized weakness, decreased responsiveness, and increased water retention for the past two days. Due to patient's clinical condition, some history and ROS is limited. As per son however, patient has "just been out of it," and was just discharged from here about a week and a half ago, supposed to follow up tomorrow with Dr. Machuca, but his worsening symptoms and high pulse prompted his sons to bring him in for evaluation. Otherwise denies fever, vomiting, and urinary symptoms. Additionally, son is requesting patient be given his normal daily medications as he was unable to take them this morning. PMD: José Miguel Sanchez Past Medical History Reviewed: Historical Data, Nursing Documentation, Vital Signs Vital Signs: Last Vital Signs Temp 98.3 F 01/31/18 09:01 Pulse 104 H 01/31/18 09:01 Resp 18 01/31/18 09:01 BP 160/88 H 01/31/18 09:01 Pulse Ox 96 01/31/18 09:01 - Medical History PMH: HTN, Hypercholesterolemia, Malignancy (hepatic cancer) Denies: Chronic Kidney Disease Other PMH: thrombocytopenia; liver cirrhosis; multiple hernias - Surgical History Surgical History: Hernia Repair Other surgeries: chemotherapy tx - Family History Family History: States: Unknown Family Hx - Living Arrangements Living Arrangements: With Family - Social History Current smoker - smoking cessation education provided: No Alcohol: None Drugs: Denies - Immunization History Hx Tetanus Toxoid Vaccination: No Hx Influenza Vaccination: No Hx Pneumococcal Vaccination: No - Home Medications Home Medications: Ambulatory Orders Medication Instructions Recorded RX: Megestrol [Megace] 40 mg PO BID 01/14/18 RX: Mirtazapine [Remeron] 30 mg PO HS 01/14/18 RX: Omeprazole 40 mg PO DAILY 01/14/18 RX: Tolterodine [Detrol LA] 4 mg PO DAILY 01/14/18 RX: Folic Acid 1 mg PO DAILY #30 tab 01/20/18 RX: Furosemide [Lasix] 20 mg PO DAILY #30 tab 01/20/18 RX: Lactulose [Enulose] 20 gm PO Q12 30 Days #2 udc 01/20/18 RX: Spironolactone [Aldactone] 12.5 mg PO DAILY 30 Days #30 tab 01/20/18 RX: Thiamine [Vitamin B1 Tab] 100 mg PO DAILY #30 tab 01/20/18 Nitrofurantoin Macrocrystals 100 mg PO BID #6 cap 02/02/18 [Macrobid] RX: rifAXIMin [Xifaxan] 550 mg PO BID #60 tab 02/02/18 - Allergies Allergies/Adverse Reactions: Allergies Allergy/AdvReac Type Severity Reaction Status Date / Time No Known Allergies Allergy Verified 01/31/18 09:09 Review of Systems Review Of Systems: ROS cannot be obtained secondary to pt's inabilty to answer questions. Physical Exam - Reviewed Nursing Documentation Reviewed: Yes Vital Signs Reviewed: Yes - Physical Exam Appears: Positive for: No Acute Distress (pt appears chronically ill and cacachtic) Skin: Negative for: Normal Color (spider angiomata on abdomen) Eye Exam: Positive for: Normal appearance ENT: Positive for: Normal ENT Inspection Neck: Positive for: Normal Cardiovascular/Chest: Positive for: Regular Rate, Rhythm Respiratory: Positive for: Normal Breath Sounds. Negative for: Respiratory Distress Gastrointestinal/Abdominal: Positive for: Distended, Asicites Extremity: Positive for: Swelling (chronic), Other (+1 edema in bilateral LE) Neurologic/Psych: Negative for: Alert (somnolent), Oriented - Laboratory Results Result Diagrams: 02/02/18 04:50 02/02/18 04:50 - ECG O2 Sat by Pulse Oximetry: 96 (RA) Pulse Ox Interpretation: Normal Medical Decision Making Medical Decision Making: Time: 949 Initial Impression: weakness rule out infection, bleeding Initial Plan: --CXR --CMP --CBC with differential --Urine culture --Urinalysis --Ammonia chemistry --PICC line placement 1040 CXR FINDINGS: LUNGS: The lungs are well inflated and clear. PLEURA: No pneumothorax. Small right and moderate left pleural effusions. CARDIOVASCULAR: The heart is normal in size. No aortic atherosclerotic calcification present. OSSEOUS STRUCTURES: Within normal limits for the patient's age. VISUALIZED UPPER ABDOMEN: Normal. OTHER FINDINGS: None. IMPRESSION: Small right and moderate left pleural effusions. the effusions are concerning and could be new. 1137 PICC placement for access by DEBRA rowe however pt is failure to thrive. will admit to hopsital Scribe Attestation: Documented by Kristen Santiago acting as a scribe for Phil Ma MD. Provider Scribe Attestation: All medical record entries made by the Scribe were at my direction and personally dictated by me. I have reviewed the chart and agree that the record accurately reflects my personal performance of the history, physical exam, medical decision making, and the department course for this patient. I have also personally directed, reviewed, and agree with the discharge instructions and disposition. Disposition - Clinical Impression Clinical Impression: Generalized muscle weakness - Patient ED Disposition Is Patient to be Admitted: Yes Counseled Patient/Family Regarding: Studies Performed, Diagnosis - Disposition Disposition Time: 11:40 Condition: STABLE
[2018-01-31 10:29] LABS: BASO # 0.1 K/uL (0.0-0.2); BASO % 0.6 % (0.0-2.0); EOS # 0.1 K/uL (0.0-0.7); EOS % 0.8 % (0.0-4.0); HEMOGLOBIN 12.2 g/dL (12.0-18.0); LYMPH # 0.5 K/uL (1.0-4.3); LYMPH % 5.3 % (20.0-40.0); MEAN CELL VOLUME 105.8 fl (80.0-94.0); MEAN CORPUSCULAR HEMOGLOBIN 35.5 pg (27.0-31.0); MEAN CORPUSCULAR HGB CONC 33.5 g/dL (33.0-37.0); MEAN PLATELET VOLUME 8.8 fl (7.2-11.7); MONO # 0.9 K/uL (0.0-0.8); MONO % 9.6 % (0.0-10.0); NEUT # 8.1 K/uL (1.8-7.0); NEUT % 83.7 % (50.0-75.0); NRBC % 0.1 % (0.0-0.0); PLATELET COUNT 169 K/uL (130-400); RBC 3.43 Mil/uL (4.40-5.90); RED CELL DISTRIBUTION WIDTH 15.3 % (11.5-14.5); WHITE BLOOD COUNT 9.7 K/uL (4.8-10.8)
--- NOTE | 2018-01-31 10:44 | RAD ---
Date of service: 01/31/2018 HISTORY: weakness COMPARISON: 01/14/2018 FINDINGS: LUNGS: The lungs are well inflated and clear. PLEURA: No pneumothorax. Small right and moderate left pleural effusions. CARDIOVASCULAR: The heart is normal in size. No aortic atherosclerotic calcification present. OSSEOUS STRUCTURES: Within normal limits for the patient's age. VISUALIZED UPPER ABDOMEN: Normal. OTHER FINDINGS: None. IMPRESSION: Small right and moderate left pleural effusions.
[2018-01-31] MEDS ORDERED: Lidocaine 1% Inj (20ml) ONE (11:04)
--- NOTE | 2018-01-31 11:15 | PCM.SURG1 ---
Surgeon's Initial Post Op Note - Surgeon's Notes Surgeon: Sim Jim MD Contact Worker: NONE Pre-Operative Diagnosis: Poor venous access Operative Findings: US showed a patent right basilic vein Post-Operative Diagnosis: Poor venous access Operation Performed: Single lumen picc right arm, 39 CM. Tip is in the SVC. Specimen/Specimens Removed: None Estimated Blood Loss: EBL {In ML}: 2 Blood Products Given: N/A Drains Used: No Drains Post-Op Condition: Fair Date of Surgery/Procedure: 01/31/18 Time of Surgery/Procedure: 11:10
[2018-01-31 11:40] LABS: ALB/GLOB RATIO 0.6 (1.0-2.1); ALBUMIN 2.3 g/dL (3.5-5.0); ALT/SGPT 125 U/L (21-72); AST/SGOT 176 U/L (17-59); BLOOD UREA NITROGEN 40 mg/dl (9-20); CALCIUM 8.4 mg/dL (8.4-10.2); GFR NON-AFRICAN AMERICAN 58
--- NOTE | 2018-01-31 11:41 | VASCULAR ---
PROCEDURE: Date of procedure: 01/31/2018 Procedure: 1. Placement of a right arm PICC with ultrasound and fluoroscopic guidance, CPT 90916 2. PICC tip confirmation with spot radiograph and is in the superior vena cava Medications: 1 percent lidocaine Total Fluoro time: 38.4 Seconds Radiation: 4.20 MGy EBL: 2 cc HISTORY: Poor venous access TECHNIQUE: Following informed consent and procedure time-out, the patient was placed supine on the interventional table and the right arm prepped and draped in the usual sterile fashion. Ultrasound showed a patent and compressible right basilic vein. After the skin was anesthetized with lidocaine, the basilic vein was accessed with micro micropuncture technique using ultrasound guidance. A guidewire was then advanced under fluoroscopic guidance into the superior vena cava. An image documenting ultrasound guidance for vascular access was permanently saved. The length of the single-lumen 4 Ivorian PICC was trimmed to 39 centimeters and advanced through a peel-away sheath. The PICC was position with tip of PICC confirm a spot radiograph the superior vena cava. The PICC was secured to the patient's skin. The PICC was flushed. A biopatch and sterile dressing was applied. IMPRESSION: Placement of a single-lumen 4 Ivorian PICC trimmed to 39 centimeters via right basilic vein. The tip of the PICC is confirmed with spot radiograph and is in the superior vena cava.
[2018-01-31 11:49] LABS: EOSINOPHIL 2 % (0-7); LYMPHOCYTE 9 % (20-50); MONOCYTE 6 % (0-10); MYELOCYTE 1 % (0-0); NEUTROPHIL 82 % (42-75); PLATELET ESTIMATE NORMAL (NORMAL); TOTAL CELLS COUNTED 100
[2018-01-31 11:50] LABS: ANISOCYTOSIS SLIGHT
--- NOTE | 2018-01-31 17:22 | CP.PCM.HP ---
History of Present Illness - History of Present Illness History of Present Illness: 83 yo male with history of Liver Cancer, Hepatic Encephalopathy, DM2 and HTN recently discharged 11 days after getting managed for generalized weakness, lethargy and worsening ascites brought back today because of the same problems with additional problem of no urine output. Present on Admission - Present on Admission Any Indicators Present on Admission: No History of DVT/PE: No History of Uncontrolled Diabetes: No Urinary Catheter: No Decubitus Ulcer Present: No Review of Systems - Review of Systems Systems not reviewed;Unavailable: Altered Mental Status Past Patient History - Infectious Disease Hx of Infectious Diseases: None - Tetanus Immunizations Tetanus Immunization: Unknown - Past Medical History & Family History Past Medical History?: Yes - Past Social History Smoking Status: Never Smoked Alcohol: None Drugs: Denies - CARDIAC Hx Hypercholesterolemia: Yes Hx Hypertension: Yes - PULMONARY Hx Respiratory Disorders: No - NEUROLOGICAL Hx Neurological Disorder: No - HEENT Hx HEENT Problems: No - RENAL Hx Chronic Kidney Disease: No - ENDOCRINE/METABOLIC Hx Diabetes Mellitus Type 2: Yes - HEMATOLOGICAL/ONCOLOGICAL Hx Blood Disorders: Yes Hx Cancer: Yes (Liver) - INTEGUMENTARY Hx Dermatological Problems: No - MUSCULOSKELETAL/RHEUMATOLOGICAL Hx Falls: No - GASTROINTESTINAL Hx Gastrointestinal Disorders: No - GENITOURINARY/GYNECOLOGICAL Hx Genitourinary Disorders: No - PSYCHIATRIC Hx Psychophysiologic Disorder: No Hx Substance Use: No - SURGICAL HISTORY Hx Surgeries: Yes Hx Herniorrhaphy: Yes (multiple) Other/Comment: son reports multiple procedures on liver-son does not know specifics - ANESTHESIA Hx Anesthesia: Yes Hx Anesthesia Reactions: No Hx Malignant Hyperthermia: No Meds Allergies/Adverse Reactions: Allergies Allergy/AdvReac Type Severity Reaction Status Date / Time No Known Allergies Allergy Verified 01/31/18 09:09 Physical Exam - Constitutional Appears: Confused, Cachectic, Chronically Ill - Head Exam Head Exam: ATRAUMATIC - Eye Exam Eye Exam: absent: Scleral icterus - ENT Exam ENT Exam: Mucous Membranes Dry - Neck Exam Neck exam: Negative for: Meningismus - Respiratory Exam Respiratory Exam: absent: Rales, Rhonchi, Wheezes, Respiratory Distress - Cardiovascular Exam Cardiovascular Exam: REGULAR RHYTHM, +S1, +S2 - GI/Abdominal Exam GI & Abdominal Exam: Distended, Soft. absent: Tenderness - Rectal Exam Rectal Exam: Deferred - Neurological Exam Neurological exam: Altered - Psychiatric Exam Psychiatric exam: Flat Affect - Skin Skin Exam: Dry Results - Vital Signs Recent Vital Signs: Last Vital Signs Temp 97.8 F 01/31/18 11:08 Pulse 95 H 01/31/18 11:08 Resp 20 01/31/18 11:08 BP 135/78 01/31/18 11:08 Pulse Ox 96 01/31/18 13:15 - Labs Result Diagrams: 01/31/18 10:15 01/31/18 10:40 Labs: Laboratory Results - last 24 hr 01/31/18 01/31/18 01/31/18 09:10 10:15 10:40 WBC 9.7 D RBC 3.43 L Hgb 12.2 Hct 36.2 MCV 105.8 H MCH 35.5 H MCHC 33.5 RDW 15.3 H Plt Count 169 MPV 8.8 Neut % (Auto) 83.7 H Lymph % (Auto) 5.3 L Wilcox % (Auto) 9.6 Eos % (Auto) 0.8 Baso % (Auto) 0.6 Neut # (Auto) 8.1 H Lymph # (Auto) 0.5 L Wilcox # (Auto) 0.9 H Eos # (Auto) 0.1 Baso # (Auto) 0.1 Neutrophils % (Manual) 82 H Lymphocytes % (Manual) 9 L Monocytes % (Manual) 6 Eosinophils % (Manual) 2 Myelocytes % 1 H Platelet Estimate Normal Anisocytosis (manual) Slight Macrocytosis (manual) Moderate Sodium 136 Potassium 4.4 Chloride 104 Carbon Dioxide 24 Anion Gap 12 BUN 40 H Creatinine 1.2 Est GFR ( Amer) > 60 Est GFR (Non-Af Amer) 58 POC Glucose (mg/dL) 169 H Random Glucose 182 H Calcium 8.4 Total Bilirubin 4.6 H AST 176 H D ALT 125 H D Alkaline Phosphatase 231 H Ammonia Total Protein 6.4 Albumin 2.3 L Globulin 4.1 H Albumin/Globulin Ratio 0.6 L 01/31/18 10:46 WBC RBC Hgb Hct MCV MCH MCHC RDW Plt Count MPV Neut % (Auto) Lymph % (Auto) Wilcox % (Auto) Eos % (Auto) Baso % (Auto) Neut # (Auto) Lymph # (Auto) Wilcox # (Auto) Eos # (Auto) Baso # (Auto) Neutrophils % (Manual) Lymphocytes % (Manual) Monocytes % (Manual) Eosinophils % (Manual) Myelocytes % Platelet Estimate Anisocytosis (manual) Macrocytosis (manual) Sodium Potassium Chloride Carbon Dioxide Anion Gap BUN Creatinine Est GFR ( Amer) Est GFR (Non-Af Amer) POC Glucose (mg/dL) Random Glucose Calcium Total Bilirubin AST ALT Alkaline Phosphatase Ammonia 49 D Total Protein Albumin Globulin Albumin/Globulin Ratio Assessment & Plan - Assessment and Plan (Free Text) Assessment: 83 yo male with history of Liver Cancer, Hepatic Encephalopathy, DM2, HTN and Thrombocytopenia recently discharged 11 days after managed for generalized weakness, lethargy and worsening ascites brought back today because of the same problems and no urine output. 1. Liver Cancer with Ascites patient is being followed up at [facility] for his liver cancer and receiving chemotherapy will need IR paracentesis with fluid to be sent for analysis and culture Gi consult with Dr Segovia ammonia level: 49 2. Anuria tong catheter was inserted and was noted to be dry probably secondary to third spacing with new findings of bilateral pleural effusion and increasing ascites renal consult with Dr Louis Chand 40mg IVP 3. DM2 BS relatively controlled without diabetic medication HgA1C: 6.1 4. DVT Prophylaxis: noted to have multiple ecchymoses although platelets had been corrected from last admission venodyne boots while in bed
--- NOTE | 2018-01-31 18:17 | CT ---
Date of service: 01/31/2018 PROCEDURE: CT Chest without contrast HISTORY: new development of pleural effusions COMPARISON: CT scan 01/14/2018, chest x-ray 01/31/2018 TECHNIQUE: Contiguous axial images were obtained through the chest without intravenous contrast enhancement. Sagittal and coronal reconstructions were performed. Radiation dose: Total exam DLP = 521.81 mGy-cm. This CT exam was performed using one or more of the following dose reduction techniques: Automated exposure control, adjustment of the mA and/or kV according to patient size, and/or use of iterative reconstruction technique. FINDINGS: LUNGS: There is evidence of mild interval increase in left pleural effusion from the prior study. This small left pleural effusion is also noted to be associated with subsegmental atelectasis and air bronchograms at the left lung base. Smaller right effusion is also noted with milder compressive atelectasis. 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 This is incompletely evaluated with the lack of contrast. Mildly enlarged heart. Vasculature is perhaps minimally congested although no overt CHF is clearly seen. Pulmonary arteries are mildly prominent which may suggest a mild amount of pulmonary artery hypertension. No lymphadenopathy. Mild aortic calcification. PLEURA: Please see above. BONES: Degenerative changes are seen in the spine. No compression fracture is seen. UPPER ABDOMEN: There is evidence of previously identified moderate abdominal ascites with chronic cirrhotic changes of the liver as well as areas of calcification. OTHER FINDINGS: None. IMPRESSION: Small left pleural effusion and lesser degree right pleural effusion with compressive atelectasis at both lung bases. Moderate abdominal ascites.
[2018-01-31] MEDS: Sodium Chloride 0.9% 1,000 ML IV SCH (18:45)
[2018-01-31 21:55] LABS: SQUAMOUS EPITHIAL 1 /hpf (0-5); URINE BACTERIA RARE (<OCC); URINE BILIRUBIN NEGATIVE (NEGATIVE); URINE BLOOD SMALL (NEGATIVE); URINE CLARITY CLEAR (Clear); URINE COLOR AMBER (YELLOW); URINE GLUCOSE (UA) NEG (NEGATIVE); URINE LEUKOCYTE ESTERASE TRACE Leu/uL (Negative); URINE PROTEIN NEGATIVE (NEGATIVE)
[2018-02-01 07:07] LABS: BASO # 0.1 K/uL (0.0-0.2); BASO % 0.8 % (0.0-2.0); EOS # 0.1 K/uL (0.0-0.7); EOS % 1.4 % (0.0-4.0); HEMOGLOBIN 12.9 g/dL (12.0-18.0); LYMPH # 0.7 K/uL (1.0-4.3); LYMPH % 8.6 % (20.0-40.0); MEAN CELL VOLUME 104.3 fl (80.0-94.0); MEAN CORPUSCULAR HEMOGLOBIN 34.9 pg (27.0-31.0); MEAN CORPUSCULAR HGB CONC 33.5 g/dL (33.0-37.0); MEAN PLATELET VOLUME 7.6 fl (7.2-11.7); MONO # 0.8 K/uL (0.0-0.8); MONO % 9.2 % (0.0-10.0); NEUT # 6.6 K/uL (1.8-7.0); RBC 3.69 Mil/uL (4.40-5.90); RED CELL DISTRIBUTION WIDTH 15.4 % (11.5-14.5); WHITE BLOOD COUNT 8.2 K/uL (4.8-10.8)
[2018-02-01 07:17] LABS: ALB/GLOB RATIO 0.5 (1.0-2.1); ALBUMIN 2.4 g/dL (3.5-5.0); ALT/SGPT 186 U/L (21-72); AST/SGOT 260 U/L (17-59); BLOOD UREA NITROGEN 42 mg/dl (9-20); CALCIUM 8.6 mg/dL (8.4-10.2); GFR NON-AFRICAN AMERICAN 53; INR 1.5; PROTHROMBIN TIME 16.7 Seconds (9.8-13.1)
[2018-02-01 07:20] LABS: PARTIAL THROMBOPLASTIN TIME 29.3 Seconds (25.6-37.1)
[2018-02-01] MEDS ORDERED: Albumin Human 25% (12.5 gm/50 ml) IV ONE (08:04)
--- NOTE | 2018-02-01 08:06 | CP.PCM.CON ---
History of Present Illness - History of Present Illness History of Present Illness: Patient is 83 years of age male I was called to see him for abnormal kidney function. Patient is lethargic no history obtainable from the patient however the medical record reviewed and noted from previous admissionThis is an 82 years old male with hx of HTN; HLD; Liver cancer receiving chemotherapy. He was brought to the ED because of 3 days of progressive worsening lethargy, generalized weakness, not eating not opening the eyes and today unset of rectal bleeding. Through this time his abdomen has been increasing in size with c omplaint of abdominal pain. He was admitted with Ascites and discharged from [facility] 5 days prior to this admission. PMH: HTN; HLD; Liver Cirrhosis, Liver Cancer; anemia; Thrombocytopenia PSH: Hernia repair; multiple problems with the liver SH: Former Smoker; No Alcohol ; No illegal drug use; live with family FH: No known Family hx Review of Systems - Constitutional Constitutional: Anorexia, Fatigue. absent: Chills - EENT Eyes: absent: Exophthalmos - Cardiovascular Cardiovascular: Edema. absent: Acrocyanosis, Chest Pain - Respiratory Respiratory: Chest Congestion. absent: Hemoptysis - Gastrointestinal Gastrointestinal: Abdominal Pain. absent: Coffee Ground Emesis - Genitourinary Genitourinary: Nocturia - Musculoskeletal Additional comments: Patient obtunded - Neurological Neurological: As Per HPI, Confusion - Psychiatric Psychiatric: As Per HPI - Endocrine Endocrine: Fatigue - Hematologic/Lymphatic Hematologic: absent: Easy Bleeding Past Patient History - Infectious Disease Hx of Infectious Diseases: None - Tetanus Immunizations Tetanus Immunization: Unknown - Past Medical History & Family History Past Medical History?: Yes - Past Social History Smoking Status: Former Smoker - CARDIAC Hx Cardiac Disorders: Yes Hx Hypercholesterolemia: Yes Hx Hypertension: Yes - PULMONARY Hx Respiratory Disorders: No - NEUROLOGICAL Hx Neurological Disorder: No - HEENT Hx HEENT Problems: No - RENAL Hx Chronic Kidney Disease: No - ENDOCRINE/METABOLIC Hx Endocrine Disorders: Yes Hx Diabetes Mellitus Type 2: Yes - HEMATOLOGICAL/ONCOLOGICAL Hx Blood Disorders: Yes Hx AIDS: No Hx Human Immunodeficiency Virus (HIV): No - INTEGUMENTARY Hx Dermatological Problems: Yes - MUSCULOSKELETAL/RHEUMATOLOGICAL Hx Musculoskeletal Disorders: Yes Hx Falls: Yes - GASTROINTESTINAL Hx Gastrointestinal Disorders: No Other/Comment: LIver CA - GENITOURINARY/GYNECOLOGICAL Hx Genitourinary Disorders: No - PSYCHIATRIC Hx Psychophysiologic Disorder: No Hx Substance Use: No - SURGICAL HISTORY Hx Surgeries: Yes Hx Herniorrhaphy: Yes (multiple) Other/Comment: son reports multiple procedures on liver-son does not know specifics - ANESTHESIA Hx Anesthesia: Yes Hx Anesthesia Reactions: No Hx Malignant Hyperthermia: No Meds Allergies/Adverse Reactions: Allergies Allergy/AdvReac Type Severity Reaction Status Date / Time No Known Allergies Allergy Verified 01/31/18 09:09 - Medications Medications: Current Medications Folic Acid (Folic Acid) 1 mg PO DAILY [facility] Furosemide (Lasix) 20 mg PO DAILY [facility] Sodium Chloride (Sodium Chloride 0.9%) 1,000 mls @ 100 mls/hr IV .Q10H [facility] Last Admin: 01/31/18 18:45 Dose: 100 mls/hr Ceftriaxone Sodium 1 gm/ (Sodium Chloride) 100 mls @ 100 mls/hr IVPB DAILY [facility]; Protocol Lactulose (Enulose) 20 gm PO Q12 [facility] Last Admin: 01/31/18 22:02 Dose: 20 gm Megestrol Acetate (Megace) 40 mg PO BID [facility] Mirtazapine (Remeron) 30 mg PO HS [facility] Last Admin: 02/01/18 01:03 Dose: Not Given Morphine Sulfate (Morphine) 1 mg IVP Q6 PRN PRN Reason: Pain, moderate (4-7) Last Admin: 01/31/18 20:08 Dose: 1 mg Spironolactone (Aldactone) 12.5 mg PO DAILY [facility] Thiamine HCl (Vitamin B1 Tab) 100 mg PO DAILY [facility] Physical Exam - Constitutional Appears: No Acute Distress - Eye Exam Eye Exam: Conjunctival injection - ENT Exam ENT Exam: Mucous Membranes Moist - Respiratory Exam Respiratory Exam: NORMAL BREATHING PATTERN. absent: Chest Wall Tenderness - Cardiovascular Exam Cardiovascular Exam: absent: Gallop, JVD, Rubs - GI/Abdominal Exam GI & Abdominal Exam: Guarding, Normal Bowel Sounds Additional comments: Distended ascites - Extremities Exam Extremities exam: Negative for: calf tenderness - Back Exam Back exam: absent: CVA tenderness (L), CVA tenderness (R) - Neurological Exam Neurological exam: Altered - Psychiatric Exam Psychiatric exam: Flat Affect Results - Vital Signs Recent Vital Signs: Last Vital Signs Temp 97.5 F L 02/01/18 07:53 Pulse 90 02/01/18 07:53 Resp 18 02/01/18 07:53 BP 137/88 02/01/18 07:53 Pulse Ox 98 02/01/18 07:53 - Labs Result Diagrams: 02/01/18 06:49 02/01/18 06:49 Labs: Laboratory Results - last 24 hr 01/31/18 01/31/18 01/31/18 09:10 10:15 10:40 WBC 9.7 D RBC 3.43 L Hgb 12.2 Hct 36.2 MCV 105.8 H MCH 35.5 H MCHC 33.5 RDW 15.3 H Plt Count 169 MPV 8.8 Neut % (Auto) 83.7 H Lymph % (Auto) 5.3 L [place] % (Auto) 9.6 Eos % (Auto) 0.8 Baso % (Auto) 0.6 Neut # (Auto) 8.1 H Lymph # (Auto) 0.5 L [place] # (Auto) 0.9 H Eos # (Auto) 0.1 Baso # (Auto) 0.1 Neutrophils % (Manual) 82 H Lymphocytes % (Manual) 9 L Monocytes % (Manual) 6 Eosinophils % (Manual) 2 Myelocytes % 1 H Platelet Estimate Normal Anisocytosis (manual) Slight Macrocytosis (manual) Moderate PT INR APTT Sodium 136 Potassium 4.4 Chloride 104 Carbon Dioxide 24 Anion Gap 12 BUN 40 H Creatinine 1.2 Est GFR ( Amer) > 60 Est GFR (Non-Af Amer) 58 POC Glucose (mg/dL) 169 H Random Glucose 182 H Calcium 8.4 Total Bilirubin 4.6 H AST 176 H D ALT 125 H D Alkaline Phosphatase 231 H Ammonia Total Protein 6.4 Albumin 2.3 L Globulin 4.1 H Albumin/Globulin Ratio 0.6 L Urine Color Urine Clarity Urine pH Ur Specific [place] Urine Protein Urine Glucose (UA) Urine Ketones Urine Blood Urine Nitrate Urine Bilirubin Urine Urobilinogen Ur Leukocyte Esterase Urine RBC (Auto) Urine Microscopic WBC Ur Squamous Epith Cells Urine Bacteria Hyaline Casts 01/31/18 01/31/18 02/01/18 10:46 21:37 05:39 WBC RBC Hgb Hct MCV MCH MCHC RDW Plt Count MPV Neut % (Auto) Lymph % (Auto) [place] % (Auto) Eos % (Auto) Baso % (Auto) Neut # (Auto) Lymph # (Auto) [place] # (Auto) Eos # (Auto) Baso # (Auto) Neutrophils % (Manual) Lymphocytes % (Manual) Monocytes % (Manual) Eosinophils % (Manual) Myelocytes % Platelet Estimate Anisocytosis (manual) Macrocytosis (manual) PT INR APTT Sodium Potassium Chloride Carbon Dioxide Anion Gap BUN Creatinine Est GFR ( Amer) Est GFR (Non-Af Amer) POC Glucose (mg/dL) 129 H Random Glucose Calcium Total Bilirubin AST ALT Alkaline Phosphatase Ammonia 49 D Total Protein Albumin Globulin Albumin/Globulin Ratio Urine Color Akiko Urine Clarity Clear Urine pH 5.0 Ur Specific [place] 1.015 Urine Protein Negative Urine Glucose (UA) Neg Urine Ketones Negative Urine Blood Small Urine Nitrate Negative Urine Bilirubin Negative Urine Urobilinogen 1.0 Ur Leukocyte Esterase Trace Urine RBC (Auto) 5 H Urine Microscopic WBC 12 H Ur Squamous Epith Cells 1 Urine Bacteria Rare Hyaline Casts 3-5 H 02/01/18 02/01/18 02/01/18 06:49 06:49 06:49 WBC 8.2 RBC 3.69 L Hgb 12.9 Hct 38.5 MCV 104.3 H MCH 34.9 H MCHC 33.5 RDW 15.4 H Plt Count 132 MPV 7.6 Neut % (Auto) 80.0 H Lymph % (Auto) 8.6 L [place] % (Auto) 9.2 Eos % (Auto) 1.4 Baso % (Auto) 0.8 Neut # (Auto) 6.6 Lymph # (Auto) 0.7 L [place] # (Auto) 0.8 Eos # (Auto) 0.1 Baso # (Auto) 0.1 Neutrophils % (Manual) Lymphocytes % (Manual) Monocytes % (Manual) Eosinophils % (Manual) Myelocytes % Platelet Estimate Anisocytosis (manual) Macrocytosis (manual) PT 16.7 H INR 1.5 APTT 29.3 Sodium 138 Potassium 4.3 Chloride 104 Carbon Dioxide 26 Anion Gap 12 BUN 42 H Creatinine 1.3 Est GFR ( Amer) > 60 Est GFR (Non-Af Amer) 53 POC Glucose (mg/dL) Random Glucose 157 H Calcium 8.6 Total Bilirubin 6.5 H AST 260 H D ALT 186 H D Alkaline Phosphatase 239 H Ammonia Total Protein 6.9 Albumin 2.4 L Globulin 4.5 H Albumin/Globulin Ratio 0.5 L Urine Color Urine Clarity Urine pH Ur Specific [place] Urine Protein Urine Glucose (UA) Urine Ketones Urine Blood Urine Nitrate Urine Bilirubin Urine Urobilinogen Ur Leukocyte Esterase Urine RBC (Auto) Urine Microscopic WBC Ur Squamous Epith Cells Urine Bacteria Hyaline Casts Assessment & Plan (1) Hepatorenal syndrome Assessment and Plan: Rule out hepatorenal syndrome causing acute kidney injury. Patient has massive ascites and anasarca Hepatic encephalopathy Severe abnormal liver enzyme high bilirubin My recommendation Spot urine for sodium osmolarity and creatinine Patient may need abdominal paracentesis to remove some of the compression Prognosis is guarded Status: Acute (2) Hepatic encephalopathy Status: Acute
--- NOTE | 2018-02-01 09:33 | CP.PCM.PN ---
<Douglas Cummins - Last Filed: 02/01/18 14:57> Subjective - Date & Time of Evaluation Date of Evaluation: 02/01/18 Time of Evaluation: 08:30 - Subjective Subjective: 83 y/o M was evaluated and examined by bedside. Pt is awake and alert, responsive to verbal commands, oriented to person only, reports feeling well, denies chest pain, SOB, abdominal pain and N/V. Patient's was by bedside, reports that pt is still confused and being incoherent intermittently. --As per nurse note, pt was able to urinate into urinal last night while in ED. As per son, pt urinate aproximately a Liter in the ED. Objective - Vital Signs/Intake and Output Vital Signs (last 24 hours): Temp Pulse Resp BP Pulse Ox 97.5 F L 90 18 137/88 98 02/01/18 07:53 02/01/18 07:53 02/01/18 07:53 02/01/18 08:52 02/01/18 07:53 - Medications Medications: Current Medications Folic Acid (Folic Acid) 1 mg PO DAILY [facility] Last Admin: 02/01/18 08:51 Dose: 1 mg Furosemide (Lasix) 20 mg PO DAILY [facility] Last Admin: 02/01/18 08:52 Dose: 20 mg Sodium Chloride (Sodium Chloride 0.9%) 1,000 mls @ 100 mls/hr IV .Q10H [facility] Last Admin: 01/31/18 18:45 Dose: 100 mls/hr Ceftriaxone Sodium 1 gm/ (Sodium Chloride) 100 mls @ 100 mls/hr IVPB DAILY [facility]; Protocol Last Admin: 02/01/18 08:57 Dose: 100 mls/hr Lactulose (Enulose) 20 gm PO Q12 [facility] Last Admin: 02/01/18 08:51 Dose: 20 gm Megestrol Acetate (Megace) 40 mg PO BID [facility] Last Admin: 02/01/18 08:53 Dose: 40 mg Mirtazapine (Remeron) 30 mg PO HS [facility] Last Admin: 02/01/18 01:03 Dose: Not Given Morphine Sulfate (Morphine) 1 mg IVP Q6 PRN PRN Reason: Pain, moderate (4-7) Last Admin: 01/31/18 20:08 Dose: 1 mg Rifaximin (Xifaxan) 550 mg PO BID [facility]; Protocol Spironolactone (Aldactone) 12.5 mg PO DAILY [facility] Last Admin: 02/01/18 08:50 Dose: 12.5 mg Thiamine HCl (Vitamin B1 Tab) 100 mg PO DAILY [facility] Last Admin: 02/01/18 08:53 Dose: 100 mg - Labs Labs: 02/01/18 06:49 02/01/18 06:49 PT 16.7 Seconds (9.8-13.1) H 02/01/18 06:49 INR 1.5 02/01/18 06:49 APTT 29.3 Seconds (25.6-37.1) 02/01/18 06:49 - Constitutional Appears: No Acute Distress - Head Exam Head Exam: ATRAUMATIC, NORMAL INSPECTION - Eye Exam Eye Exam: EOMI, Normal appearance, PERRL. absent: Scleral icterus - ENT Exam ENT Exam: Mucous Membranes Dry - Neck Exam Neck Exam: Full ROM, Normal Inspection. absent: Meningismus - Respiratory Exam Respiratory Exam: NORMAL BREATHING PATTERN. absent: Rhonchi, Wheezes - Cardiovascular Exam Cardiovascular Exam: +S1, +S2 - GI/Abdominal Exam GI & Abdominal Exam: Distended (due to ascitis), Tenderness (diffuse on deep palpation.), Normal Bowel Sounds. absent: Guarding Additional comments: dullness on percussion diffusely, presence of caput medusae. Assessment and Plan - Assessment and Plan (Free Text) Assessment: 83 y/o M with a PMHx of liver cancer, hepatic encephalopathy, HTN, DM2 and thrombocytopenia admitted for evaluation of aggravating ascitis, lethargy, altered mental status and NO urine output. Pt recently discharged form [facility] on 01/19/18. --Ammonia level: 49-low. PLAN: >Ascitis due to Liver cancer/cirrhosis --Stable, increasing in size --On chemotherapy at [facility] --GI on board, Dr Segovia. --IV Albumin to be administered today before paracentesis. --IR paracentesis today --Cell count and Culture from ascitis fluid ordered. --C/w Spirinolactone daily, Ceftriaxone for SBP prophylaxis >Altered Mental Status --Ascitis increasing in size, normal ammonia levels yesterday/ --Rifaximin PO BID as per GI. --IR Paracentesis today. --Monitor vital signs and >Anuria --Resolved --Nephrology on board, Dr Bloom. --F/u urine output. >DM2 --BS relatively controlled without diabetic medication --HgA1C: 6.1 on 01/15/18 >Hepatic Cirrhosis/Cancer --Continue management at [facility] >DVT Prophylaxis: --Due to ecchymotic lesions , venodyne boots for now. Case discussed with Dr Sahu, Hospitalist Rupal PGY-2 <Hyun Sahu - Last Filed: 02/01/18 16:57> Objective - Vital Signs/Intake and Output Vital Signs (last 24 hours): Temp Pulse Resp BP Pulse Ox 97.8 F 91 H 20 131/80 95 02/01/18 16:05 02/01/18 16:05 02/01/18 16:05 02/01/18 16:05 02/01/18 16:05 - Medications Medications: Current Medications Folic Acid (Folic Acid) 1 mg PO DAILY [facility] Last Admin: 02/01/18 08:51 Dose: 1 mg Furosemide (Lasix) 20 mg PO DAILY [facility] Last Admin: 02/01/18 08:52 Dose: 20 mg Sodium Chloride (Sodium Chloride 0.9%) 1,000 mls @ 100 mls/hr IV .Q10H [facility] Last Admin: 02/01/18 12:46 Dose: Not Given Ceftriaxone Sodium 1 gm/ (Sodium Chloride) 100 mls @ 100 mls/hr IVPB DAILY [facility]; Protocol Last Admin: 02/01/18 08:57 Dose: 100 mls/hr Lactulose (Enulose) 20 gm PO Q12 [facility] Last Admin: 02/01/18 08:51 Dose: 20 gm Megestrol Acetate (Megace) 40 mg PO BID [facility] Last Admin: 02/01/18 08:53 Dose: 40 mg Mirtazapine (Remeron) 30 mg PO HS [facility] Last Admin: 02/01/18 01:03 Dose: Not Given Morphine Sulfate (Morphine) 1 mg IVP Q6 PRN PRN Reason: Pain, moderate (4-7) Last Admin: 01/31/18 20:08 Dose: 1 mg Rifaximin (Xifaxan) 550 mg PO BID [facility]; Protocol Spironolactone (Aldactone) 12.5 mg PO DAILY [facility] Last Admin: 02/01/18 08:50 Dose: 12.5 mg Thiamine HCl (Vitamin B1 Tab) 100 mg PO DAILY [facility] Last Admin: 02/01/18 08:53 Dose: 100 mg - Labs Labs: 02/01/18 06:49 02/01/18 06:49 PT 16.7 Seconds (9.8-13.1) H 02/01/18 06:49 INR 1.5 02/01/18 06:49 APTT 29.3 Seconds (25.6-37.1) 02/01/18 06:49 Attending/Attestation - Attestation I have personally seen and examined this patient.: Yes I have fully participated in the care of the patient.: Yes I have reviewed all pertinent clinical information, including history, physical exam and plan: Yes Notes (Text): Massive Ascites due to Cirrhosis amd Liver Cancer -Paracentesis done - 10.5 liters ascitic fluid removed - IV Albumin given - IV Ceftriaxone for SBP Prophylaxis
[2018-02-01 11:40] LABS: BODY FLUID TYPE PERITONEAL/ASCITES
--- NOTE | 2018-02-01 12:08 | PCM.SURG1 ---
Surgeon's Initial Post Op Note - Surgeon's Notes Surgeon: Sim Velez MD Livestock Haulier: NONE Type of Anesthesia: Local Pre-Operative Diagnosis: Ascites, cirrhosis Operative Findings: US showed a large amount of ascites Post-Operative Diagnosis: Ascites, cirrhosis Operation Performed: 10.5 liters of straw colored fluid Specimen/Specimens Removed: US guided paracentesis. Estimated Blood Loss: EBL {In ML}: 0 Blood Products Given: N/A Drains Used: No Drains Post-Op Condition: Fair Date of Surgery/Procedure: 02/01/18 Time of Surgery/Procedure: 12:05
[2018-02-01] MEDS: Sodium Chloride 0.9% 1,000 ML IV SCH ×2 (12:46→23:00)
[2018-02-01 13:28] LABS: BF GROSS APPEARANCE CLOUDY (CLEAR)
[2018-02-01 13:29] LABS: BODY FLUID MONO/MACROPHAGE 47 % (0-0); BODY FLUID TOTAL COUNT 100 (0-0)
--- NOTE | 2018-02-01 21:40 | CON ---
DATE: 02/01/2018 REFERRING PHYSICIAN: Angel Luis Zheng MD REASON FOR CONSULTATION: Encephalopathy. HISTORY OF PRESENT ILLNESS: This is an 83-year-old male with a history of liver CA and past history of encephalopathy, diabetes and hypertension. He was recently discharged for essentially decompensated cirrhosis and is admitted again for encephalopathy. At this point, the patient seems almost at his baseline and feels well and tolerating diet well. PAST MEDICAL HISTORY: As above. PAST SURGICAL HISTORY: As above. MEDICATIONS: Have been reviewed. REVIEW OF SYSTEMS: All other systems have been reviewed and negative apart from the HPI. PHYSICAL EXAMINATION: GENERAL: This is a pleasant elderly male, lying in bed comfortably, in no apparent distress. VITAL SIGNS: Here in the hospital grossly unremarkable. HEENT: Head: Normocephalic and atraumatic. Eyes: Pupils equally reactive to light bilaterally. There is no conjunctival icterus. NECK: Supple. Normal range of motion. No lymphadenopathy appreciated. LUNGS: Coarse breath sounds bilaterally. HEART: S1 and S2. Regular rate and rhythm. No S3. ABDOMEN: Soft, nontender. Some fluid wave present. Bowel sounds present. No rebound. No guarding. RECTAL: Deferred. EXTREMITIES: Pulses present bilaterally. SKIN: Warm, dry, and intact. NEUROLOGIC: A and O x3. LABORATORY DATA: Labs and radiology have been reviewed. WBC is 8.2, hemoglobin 12.9, hematocrit 38.5, and platelet is 132. INR is 1.5. BUN 42, creatinine 1.7. AST and ALT are 261 and bilirubin, alkaline phosphatase 239. ASSESSMENT AND PLAN: This is an 83-year-old male with decompensated cirrhosis. The patient is not short of breath. We would not consider absolutely necessary. Recommend lactulose every 6 hours, Xifaxan as well b.i.d. Renal input is appreciated. Advance diet as tolerated. Discharge planning. Thank you for the consult. Shawn Segovia MD/ PhD cc: Angel Luis Zheng MD
[2018-02-02 06:21] LABS: HEMOGLOBIN 11.6 g/dL (12.0-18.0); MEAN CELL VOLUME 103.7 fl (80.0-94.0); MEAN CORPUSCULAR HEMOGLOBIN 35.3 pg (27.0-31.0); RBC 3.29 Mil/uL (4.40-5.90); RED CELL DISTRIBUTION WIDTH 15.3 % (11.5-14.5); WHITE BLOOD COUNT 8.6 K/uL (4.8-10.8)
[2018-02-02 06:43] LABS: ALB/GLOB RATIO 0.6 (1.0-2.1); ALT/SGPT 136 U/L (21-72); AST/SGOT 188 U/L (17-59); BLOOD UREA NITROGEN 42 mg/dl (9-20); CALCIUM 7.7 mg/dL (8.4-10.2); GFR NON-AFRICAN AMERICAN > 60
[2018-02-02 08:20] VITALS: PULSE 87; RESP 20; O2SAT 96
[2018-02-02] MEDS: Sodium Chloride 0.9% 1,000 ML IV SCH (09:06)
[2018-02-02 12:09] VITALS: BP 113/68; TEMP 98.6
--- NOTE | 2018-02-02 12:12 | CP.PCM.PN ---
Subjective - Date & Time of Evaluation Date of Evaluation: 02/02/18 Time of Evaluation: 12:11 - Subjective Subjective: Patient feeling somewhat better Vital signs stable Objective - Vital Signs/Intake and Output Vital Signs (last 24 hours): Temp Pulse Resp BP Pulse Ox 98.6 F 87 20 113/68 96 02/02/18 12:09 02/02/18 12:09 02/02/18 12:09 02/02/18 12:09 02/02/18 12:09 - Medications Medications: Current Medications Folic Acid (Folic Acid) 1 mg PO DAILY [facility] Last Admin: 02/02/18 08:59 Dose: 1 mg Furosemide (Lasix) 20 mg PO DAILY [facility] Last Admin: 02/02/18 08:59 Dose: 20 mg Sodium Chloride (Sodium Chloride 0.9%) 1,000 mls @ 100 mls/hr IV .Q10H [facility] Last Admin: 02/02/18 09:06 Dose: 100 mls/hr Ceftriaxone Sodium 1 gm/ (Sodium Chloride) 100 mls @ 100 mls/hr IVPB DAILY [facility]; Protocol Last Admin: 02/02/18 08:58 Dose: 100 mls/hr Lactulose (Enulose) 20 gm PO Q12 [facility] Last Admin: 02/02/18 08:59 Dose: 20 gm Megestrol Acetate (Megace) 40 mg PO BID [facility] Last Admin: 02/02/18 08:59 Dose: 40 mg Mirtazapine (Remeron) 30 mg PO HS [facility] Last Admin: 02/01/18 22:22 Dose: 30 mg Morphine Sulfate (Morphine) 1 mg IVP Q6 PRN PRN Reason: Pain, moderate (4-7) Last Admin: 01/31/18 20:08 Dose: 1 mg Rifaximin (Xifaxan) 550 mg PO BID [facility]; Protocol Last Admin: 02/02/18 09:01 Dose: 550 mg Spironolactone (Aldactone) 12.5 mg PO DAILY [facility] Last Admin: 02/02/18 09:00 Dose: 12.5 mg Thiamine HCl (Vitamin B1 Tab) 100 mg PO DAILY [facility] Last Admin: 02/02/18 09:00 Dose: 100 mg - Labs Labs: 02/02/18 04:50 02/02/18 04:50 PT 16.7 Seconds (9.8-13.1) H 02/01/18 06:49 INR 1.5 02/01/18 06:49 APTT 29.3 Seconds (25.6-37.1) 02/01/18 06:49 - Constitutional Appears: No Acute Distress - Eye Exam Eye Exam: Conjunctival injection - ENT Exam ENT Exam: Mucous Membranes Moist - GI/Abdominal Exam GI & Abdominal Exam: Normal Bowel Sounds. absent: Guarding - Extremities Exam Extremities Exam: absent: Calf Tenderness - Back Exam Back Exam: absent: CVA tenderness (L), CVA tenderness (R) - Neurological Exam Neurological Exam: Awake - Skin Skin Exam: absent: Cyanosis Assessment and Plan (1) Hepatorenal syndrome Assessment & Plan: Rule out hepatorenal syndrome causing acute kidney injury. Serum creatinine improving 1.1 Patient has massive ascites and anasarca Hepatic encephalopathy Severe abnormal liver enzyme high bilirubin My recommendation Status post paracentesis with removal 10.5 L on February 01 Continue monitoring electrolyte and kidney function Status: Acute (2) Hepatic encephalopathy Status: Acute
--- NOTE | 2018-02-02 13:13 | US ---
Date of Procedure: 02/01/2018 PROCEDURE: Ultrasound-guided paracentesis, CPT 37317 Medications: 7 cc 1% Lidocaine HISTORY: Ascites, abdominal pain, cirrhosis TECHNIQUE: Following informed consent , the patient was placed supine on the stretcher and the site was marked. A limited abdominal ultrasound was performed that showed a large amount of intra-abdominal fluid. Procedural time out was called and the Pt's abdomen was marked and prepped and draped in the usual sterile fashion. Ultrasound-guided large volume paracentesis performed. A total of 10.4 liters of straw colored fluid was removed without complication. IMPRESSION: Ultrasound-guided large volume paracentesis.
--- NOTE | 2018-02-02 13:53 | CP.PCM.DIS ---
<Maria GDouglas - Last Filed: 02/02/18 13:51> Provider - Provider Date of Admission: 01/31/18 15:38 Attending physician: Angel Luis Zheng MD Primary care physician: José Miguel Sanchez Consults: 01/31/18 16:45 Gastroenterology Consult Stat Consulting Provider: Shawn Segovia Consulting Physician: Shawn Segovia Reason for Consult: liver cancer with enlarging ascites 01/31/18 16:47 Nephrology Consult Stat Consulting Provider: Lay Myers Consulting Physician: Lay Myers Reason for Consult: Anuria 02/01/18 10:00 Wound Care [Nursing Referral for Wound Care] Routine Comment: Skin tear elbow and forearm Reason For Exam: Multiple ecchymotic area both upper extremities. Time Spent in preparation of Discharge (in minutes): 40 Diagnosis - Discharge Diagnosis (1) Ascites of liver Status: Acute Comment: -S/P Paracentesis, 10.5 L extracted on 02/01/18. Continue management as per oncologist. Rifaximin PO BID. (2) Hepatic cancer Status: Acute (3) Hepatic encephalopathy Status: Acute Hospital Course - Lab Results Lab Results: Micro Results 02/01/18 11:30 Ascitic Fluid Gram Stain - Final 02/01/18 11:30 Ascitic Fluid Body Fluid Culture - Preliminary NO GROWTH AFTER 24 HOURS 01/31/18 21:37 Urine,Clean Catch Urine Culture - Preliminary Gram Negative Abhi 01/31/18 18:00 Blood-Venous Blood Culture - Preliminary NO GROWTH AFTER 24 HOURS 01/31/18 17:40 Blood-Venous Blood Culture - Preliminary NO GROWTH AFTER 24 HOURS Most Recent Lab Values WBC 8.6 K/uL (4.8-10.8) 02/02/18 04:50 RBC 3.29 Mil/uL (4.40-5.90) L 02/02/18 04:50 Hgb 11.6 g/dL (12.0-18.0) L 02/02/18 04:50 Hct 34.1 % (35.0-51.0) L 02/02/18 04:50 MCV 103.7 fl (80.0-94.0) H 02/02/18 04:50 MCH 35.3 pg (27.0-31.0) H 02/02/18 04:50 MCHC 34.0 g/dL (33.0-37.0) 02/02/18 04:50 RDW 15.3 % (11.5-14.5) H 02/02/18 04:50 Plt Count 102 K/uL (130-400) L D 02/02/18 04:50 MPV 7.6 fl (7.2-11.7) 02/01/18 06:49 Neut % (Auto) 80.0 % (50.0-75.0) H 02/01/18 06:49 Lymph % (Auto) 8.6 % (20.0-40.0) L 02/01/18 06:49 Pike % (Auto) 9.2 % (0.0-10.0) 02/01/18 06:49 Eos % (Auto) 1.4 % (0.0-4.0) 02/01/18 06:49 Baso % (Auto) 0.8 % (0.0-2.0) 02/01/18 06:49 Neut # (Auto) 6.6 K/uL (1.8-7.0) 02/01/18 06:49 Lymph # (Auto) 0.7 K/uL (1.0-4.3) L 02/01/18 06:49 Pike # (Auto) 0.8 K/uL (0.0-0.8) 02/01/18 06:49 Eos # (Auto) 0.1 K/uL (0.0-0.7) 02/01/18 06:49 Baso # (Auto) 0.1 K/uL (0.0-0.2) 02/01/18 06:49 Neutrophils % (Manual) 82 % (42-75) H 01/31/18 10:15 Lymphocytes % (Manual) 9 % (20-50) L 01/31/18 10:15 Monocytes % (Manual) 6 % (0-10) 01/31/18 10:15 Eosinophils % (Manual) 2 % (0-7) 01/31/18 10:15 Myelocytes % 1 % (0-0) H 01/31/18 10:15 Platelet Estimate Normal (NORMAL) 01/31/18 10:15 Anisocytosis (manual) Slight 01/31/18 10:15 Macrocytosis (manual) Moderate 01/31/18 10:15 PT 16.7 Seconds (9.8-13.1) H 02/01/18 06:49 INR 1.5 02/01/18 06:49 APTT 29.3 Seconds (25.6-37.1) 02/01/18 06:49 Sodium 133 mmol/l (132-148) 02/02/18 04:50 Potassium 3.9 MMOL/L (3.6-5.0) 02/02/18 04:50 Chloride 106 mmol/L (98-107) 02/02/18 04:50 Carbon Dioxide 24 mmol/L (22-30) 02/02/18 04:50 Anion Gap 7 (10-20) L 02/02/18 04:50 BUN 42 mg/dl (9-20) H 02/02/18 04:50 Creatinine 1.1 mg/dl (0.8-1.5) 02/02/18 04:50 Est GFR ( Amer) > 60 02/02/18 04:50 Est GFR (Non-Af Amer) > 60 02/02/18 04:50 POC Glucose (mg/dL) 202 mg/dL (65-110) H 02/02/18 11:47 Random Glucose 211 mg/dL (75-110) H 02/02/18 04:50 Calcium 7.7 mg/dL (8.4-10.2) L 02/02/18 04:50 Total Bilirubin 4.8 mg/dl (0.2-1.3) H 02/02/18 04:50 AST 188 U/L (17-59) H D 02/02/18 04:50 ALT 136 U/L (21-72) H D 02/02/18 04:50 Alkaline Phosphatase 193 U/L (38-126) H 02/02/18 04:50 Ammonia 49 umo/L (16-60) D 01/31/18 10:46 Total Protein 5.6 G/DL (6.3-8.2) L 02/02/18 04:50 Albumin 2.0 g/dL (3.5-5.0) L 02/02/18 04:50 Globulin 3.6 gm/dL (2.2-3.9) 02/02/18 04:50 Albumin/Globulin Ratio 0.6 (1.0-2.1) L 02/02/18 04:50 Urine Color Akiko (YELLOW) 01/31/18 21:37 Urine Clarity Clear (Clear) 01/31/18 21:37 Urine pH 5.0 (5.0-8.0) 01/31/18 21:37 Ur Specific [place] 1.015 (1.003-1.030) 01/31/18 21:37 Urine Protein Negative mg/dL (NEGATIVE) 01/31/18 21:37 Urine Glucose (UA) Neg mg/dL (NEGATIVE) 01/31/18 21:37 Urine Ketones Negative mg/dL (NEGATIVE) 01/31/18 21:37 Urine Blood Small (NEGATIVE) 01/31/18 21:37 Urine Nitrate Negative (NEGATIVE) 01/31/18 21:37 Urine Bilirubin Negative (NEGATIVE) 01/31/18 21:37 Urine Urobilinogen 1.0 mg/dL (0.2-1.0) 01/31/18 21:37 Ur Leukocyte Esterase Trace Gilma/uL (Negative) 01/31/18 21:37 Urine RBC (Auto) 5 /hpf (0-3) H 01/31/18 21:37 Urine Microscopic WBC 12 /hpf (0-5) H 01/31/18 21:37 Ur Squamous Epith Cells 1 /hpf (0-5) 01/31/18 21:37 Urine Bacteria Rare (<OCC) 01/31/18 21:37 Hyaline Casts 3-5 /hpf (0-2) H 01/31/18 21:37 Fluid Source Peritoneal/ascites 02/01/18 11:30 Fluid Appearance Cloudy (CLEAR) 02/01/18 11:30 Fluid WBC 65.0 /mm3 (0.0-300.0) 02/01/18 11:30 Fluid RBC 8100.0 /mm3 (0.0-0.0) H 02/01/18 11:30 Fluid Tot Cell Count 100 (0-0) H 02/01/18 11:30 Fluid Neutrophils 37.0 % (0-0) H 02/01/18 11:30 Fluid Lymphocytes 16.0 % (0-0) H 02/01/18 11:30 Fld Monocyte/Macrophag 47 % (0-0) H 02/01/18 11:30 Fluid Comment Yellow/sl bloody 02/01/18 11:30 - Hospital Course Hospital Course: 83 y/o M with a PMHx of liver cancer, hepatic encephalopathy, HTN, DM2 and thrombocytopenia admitted on 01/31/18 for evaluation of aggravating ascitis, lethargy, altered mental status and NO urine output. -At ED, serum Ammonia level: 49-low, X-ray and CT of chest showed small pleural effusion. Placement of a single-lumen 4 Bengali PICC trimmed to 39 centimeters via right basilic vein due to failed peripheral line placement. -Upon admission, pt was able to urinate a large quantity of dark-tea colored urine. Administered Lasix 40mg on first day and 20mg in second day, Ceftriaxone for SBP prophylaxis and Albumin infused on second day, before US guided paracentesis. 10.5 Liters of straw-colored fluid were extracted on paracentesis. Pt tolerated well procedure, BP was maintained in normal range. On third, last day of admission, Urine Culture returned positive for gram negative rods but <10^5 growth. On past admission, 3 months ago, pt had an UTI with ESBL that was sensitive to Nitrofurantoin. Urinalysis are negative for nitrites and Leuko esterase. -Today, 02/02/18, pt reported feeling OK, denied chest pain, SOB, abdominal pain, nausea or vomiting. Pt afebrile, tolerating PO, urinating daily, soft normal bowel movements with NO acute events overnight. Pt denied dysuria, abdominal pain, chills and no gross hematuria. Pt is stable for discharge, Nitrofurantoin and Rifaximin precription sent to pharmacy. Pt and family were educated on the patient's current status, they were instructed to f/u with oncologist and PCP within 1 month. - Date & Time of H&P Date of H&P: 01/31/18 Time of H&P: 11:13 Discharge Exam - Head Exam Head Exam: ATRAUMATIC, NORMAL INSPECTION - Eye Exam Eye Exam: EOMI - ENT Exam ENT Exam: Mucous Membranes Moist - Neck Exam Neck exam: Full Rom, Normal Inspection - Respiratory Exam Respiratory Exam: NORMAL BREATHING PATTERN. absent: Rales, Rhonchi, Wheezes, Respiratory Distress - Cardiovascular Exam Cardiovascular Exam: REGULAR RHYTHM, +S1, +S2 - GI/Abdominal Exam GI & Abdominal Exam: Distended, Normal Bowel Sounds, Soft. absent: Firm, Guarding, Rebound, Tenderness - Extremities Exam Extremities exam: full ROM, pedal edema (bilaterally, worse on R leg, edema noticed up to upper thigh. ) - Neurological Exam Neurological exam: Alert Discharge Plan - Discharge Medications Prescriptions: Nitrofurantoin Macrocrystals [Macrobid] 100 mg PO BID #6 cap rifAXIMin [Xifaxan] 550 mg PO BID #60 tab - Follow Up Plan Condition: STABLE Disposition: HOME/ ROUTINE Instructions: Fluid in the Belly (Ascites) (DC), Abdominal Paracentesis (DC) Additional Instructions: Please follow up with oncologist within 1 week. Follow a low-sodium strict diet, <2,000mg/day. <Hyun Sahu - Last Filed: 02/02/18 16:25> Provider - Provider Date of Admission: 01/31/18 15:38 Attending physician: Angel Luis Zheng MD Consults: 01/31/18 16:45 Gastroenterology Consult Stat Comment: Consulting Provider: Shawn Segovia Consulting Physician: Shawn Segovia Reason for Consult: liver cancer with enlarging ascites 01/31/18 16:47 Nephrology Consult Stat Comment: Consulting Provider: Lay Myers Consulting Physician: Lay Myers Reason for Consult: anuria 02/01/18 10:00 Wound Care [Nursing Referral for Wound Care] Routine Comment: Skintear elbow and forearm Physician Instructions: Reason For Exam: Multiple ecchymotic area both upper extremities. Hospital Course - Lab Results Lab Results: Micro Results 02/01/18 11:30 Ascitic Fluid Gram Stain - Final 02/01/18 11:30 Ascitic Fluid Body Fluid Culture - Preliminary NO GROWTH AFTER 24 HOURS 01/31/18 21:37 Urine,Clean Catch Urine Culture - Preliminary Gram Negative Abhi 01/31/18 18:00 Blood-Venous Blood Culture - Preliminary NO GROWTH AFTER 24 HOURS 01/31/18 17:40 Blood-Venous Blood Culture - Preliminary NO GROWTH AFTER 24 HOURS Most Recent Lab Values WBC 8.6 K/uL (4.8-10.8) 02/02/18 04:50 RBC 3.29 Mil/uL (4.40-5.90) L 02/02/18 04:50 Hgb 11.6 g/dL (12.0-18.0) L 02/02/18 04:50 Hct 34.1 % (35.0-51.0) L 02/02/18 04:50 MCV 103.7 fl (80.0-94.0) H 02/02/18 04:50 MCH 35.3 pg (27.0-31.0) H 02/02/18 04:50 MCHC 34.0 g/dL (33.0-37.0) 02/02/18 04:50 RDW 15.3 % (11.5-14.5) H 02/02/18 04:50 Plt Count 102 K/uL (130-400) L D 02/02/18 04:50 MPV 7.6 fl (7.2-11.7) 02/01/18 06:49 Neut % (Auto) 80.0 % (50.0-75.0) H 02/01/18 06:49 Lymph % (Auto) 8.6 % (20.0-40.0) L 02/01/18 06:49 Pike % (Auto) 9.2 % (0.0-10.0) 02/01/18 06:49 Eos % (Auto) 1.4 % (0.0-4.0) 02/01/18 06:49 Baso % (Auto) 0.8 % (0.0-2.0) 02/01/18 06:49 Neut # (Auto) 6.6 K/uL (1.8-7.0) 02/01/18 06:49 Lymph # (Auto) 0.7 K/uL (1.0-4.3) L 02/01/18 06:49 Pike # (Auto) 0.8 K/uL (0.0-0.8) 02/01/18 06:49 Eos # (Auto) 0.1 K/uL (0.0-0.7) 02/01/18 06:49 Baso # (Auto) 0.1 K/uL (0.0-0.2) 02/01/18 06:49 Neutrophils % (Manual) 82 % (42-75) H 01/31/18 10:15 Lymphocytes % (Manual) 9 % (20-50) L 01/31/18 10:15 Monocytes % (Manual) 6 % (0-10) 01/31/18 10:15 Eosinophils % (Manual) 2 % (0-7) 01/31/18 10:15 Myelocytes % 1 % (0-0) H 01/31/18 10:15 Platelet Estimate Normal (NORMAL) 01/31/18 10:15 Anisocytosis (manual) Slight 01/31/18 10:15 Macrocytosis (manual) Moderate 01/31/18 10:15 PT 16.7 Seconds (9.8-13.1) H 02/01/18 06:49 INR 1.5 02/01/18 06:49 APTT 29.3 Seconds (25.6-37.1) 02/01/18 06:49 Sodium 133 mmol/l (132-148) 02/02/18 04:50 Potassium 3.9 MMOL/L (3.6-5.0) 02/02/18 04:50 Chloride 106 mmol/L (98-107) 02/02/18 04:50 Carbon Dioxide 24 mmol/L (22-30) 02/02/18 04:50 Anion Gap 7 (10-20) L 02/02/18 04:50 BUN 42 mg/dl (9-20) H 02/02/18 04:50 Creatinine 1.1 mg/dl (0.8-1.5) 02/02/18 04:50 Est GFR ( Amer) > 60 02/02/18 04:50 Est GFR (Non-Af Amer) > 60 02/02/18 04:50 POC Glucose (mg/dL) 202 mg/dL (65-110) H 02/02/18 11:47 Random Glucose 211 mg/dL (75-110) H 02/02/18 04:50 Calcium 7.7 mg/dL (8.4-10.2) L 02/02/18 04:50 Total Bilirubin 4.8 mg/dl (0.2-1.3) H 02/02/18 04:50 AST 188 U/L (17-59) H D 02/02/18 04:50 ALT 136 U/L (21-72) H D 02/02/18 04:50 Alkaline Phosphatase 193 U/L (38-126) H 02/02/18 04:50 Ammonia 49 umo/L (16-60) D 01/31/18 10:46 Total Protein 5.6 G/DL (6.3-8.2) L 02/02/18 04:50 Albumin 2.0 g/dL (3.5-5.0) L 02/02/18 04:50 Globulin 3.6 gm/dL (2.2-3.9) 02/02/18 04:50 Albumin/Globulin Ratio 0.6 (1.0-2.1) L 02/02/18 04:50 Urine Color Akiko (YELLOW) 01/31/18 21:37 Urine Clarity Clear (Clear) 01/31/18 21:37 Urine pH 5.0 (5.0-8.0) 01/31/18 21:37 Ur Specific [place] 1.015 (1.003-1.030) 01/31/18 21:37 Urine Protein Negative mg/dL (NEGATIVE) 01/31/18 21:37 Urine Glucose (UA) Neg mg/dL (NEGATIVE) 01/31/18 21:37 Urine Ketones Negative mg/dL (NEGATIVE) 01/31/18 21:37 Urine Blood Small (NEGATIVE) 01/31/18 21:37 Urine Nitrate Negative (NEGATIVE) 01/31/18 21:37 Urine Bilirubin Negative (NEGATIVE) 01/31/18 21:37 Urine Urobilinogen 1.0 mg/dL (0.2-1.0) 01/31/18 21:37 Ur Leukocyte Esterase Trace Gilma/uL (Negative) 01/31/18 21:37 Urine RBC (Auto) 5 /hpf (0-3) H 01/31/18 21:37 Urine Microscopic WBC 12 /hpf (0-5) H 01/31/18 21:37 Ur Squamous Epith Cells 1 /hpf (0-5) 01/31/18 21:37 Urine Bacteria Rare (<OCC) 01/31/18 21:37 Hyaline Casts 3-5 /hpf (0-2) H 01/31/18 21:37 Fluid Source Peritoneal/ascites 02/01/18 11:30 Fluid Appearance Cloudy (CLEAR) 02/01/18 11:30 Fluid WBC 65.0 /mm3 (0.0-300.0) 02/01/18 11:30 Fluid RBC 8100.0 /mm3 (0.0-0.0) H 02/01/18 11:30 Fluid Tot Cell Count 100 (0-0) H 02/01/18 11:30 Fluid Neutrophils 37.0 % (0-0) H 02/01/18 11:30 Fluid Lymphocytes 16.0 % (0-0) H 02/01/18 11:30 Fld Monocyte/Macrophag 47 % (0-0) H 02/01/18 11:30 Fluid Comment Yellow/sl bloody 02/01/18 11:30 Attending/Attestation - Attestation I have personally seen and examined this patient.: Yes I have fully participated in the care of the patient.: Yes I have reviewed all pertinent clinical information, including history, physical exam and plan: Yes Notes (Text): Massive [place] Ascites due to Cirrhosis and Liver Cancer -Paracentesis done - 10.5 liters ascitic fluid removed - IV Albumin given - IV Ceftriaxone for SBP Prophylaxis - pt's abd discomfort resolved Bacteriuria likely Colonization Urine c/s : 50, 000 CFU Gram neg abhi - Pt is asymptomatic, no fever, no leukocytosis, Urinalysis showed negative leukocyteesterase and only 2 WBC - Rx for 3 days only of Nitrofurantoin given
--- NOTE | 2018-02-03 13:02 | CARD ---
APPROVED REPORT Date of service: 01/31/2018 EKG Measurement Heart [id number] <Conclusion> Normal sinus rhythm Left axis deviation Right bundle branch block Poor R wave progression Abnormal ECG
== END 2018-02-02 14:41 | disposition home or self-care (01) ==
LOC: H.ER 08:58 → H.ERHOLD 15:38 → H.TEL 22:19
DX: K74.69 Other cirrhosis of liver (principal); R18.8 Other ascites; K72.90 Hepatic failure, unspecified without coma; N39.0 Urinary tract infection, site not specified; K76.7 Hepatorenal syndrome; B96.20 Unspecified Escherichia coli [E. coli] as the cause of diseases classified elsewhere; C22.9 Malignant neoplasm of liver, not specified as primary or secondary; J90 Pleural effusion, not elsewhere classified; E11.9 Type 2 diabetes mellitus without complications; D69.6 Thrombocytopenia, unspecified; I10 Essential (primary) hypertension; E78.00 Pure hypercholesterolemia, unspecified; E78.5 Hyperlipidemia, unspecified; Z16.12 Extended spectrum beta lactamase (ESBL) resistance; Z87.891 Personal history of nicotine dependence
CPT/HCPCS: 36415; 36569; 49083; 71045; 71250; 76937; 77001; 80053; 81003; 82140; 82948; 85025; 85027; 85610; 85730; 87040; 87070; 87086; 87181; 89051; 93005; 96361; 96365; 96366; 96367; 96375; 99285; A4310; C1729; C1751; G0378; J0696; J1940; J2270; J7030; P9047

== ENCOUNTER 2018-02-09 09:09 | Observation (INO) | payer MEDICARE ==
[2018-02-09 09:40] VITALS: BMI 29.7
[2018-02-09] MEDS ORDERED: Morphine 4 MG/ML VIAL IVP STA (10:37)
[2018-02-09] MEDS ORDERED: Morphine 4 MG/ML VIAL ONE (11:00)
--- NOTE | 2018-02-09 11:26 | ED PDOC ---
HPI: Abdomen Time Seen by Provider: 02/09/18 10:20 Chief Complaint (Nursing): Abdominal Pain History Per: Family (sons) History/Exam Limitations: language barrier, other (advanced disease and slow to respond) Onset/Duration Of Symptoms: Days Outside of [place] travel?: No Current Symptoms Are (Timing): Still Present (worsening) Location Of Pain/Discomfort: Diffuse, Other (worsening ascites) Quality Of Discomfort: Dull Associated Symptoms: Loss Of Appetite Exacerbating Factors: None Additional Complaint(s): 83 year old male presents to the ED with his two sons for evaluation of generalized weakness, decreased responsiveness, and increased water retention for the past two days. Due to patient's clinical condition and language barrier, the sons provide most history and ROS is limited. As per son however, patient has had increasing abdominal size filled with fluid and fluid leaking from the legs. Pt has had two admissions in the last 5 weeks with fluid drained from the abdomen. Pt was scheduled for an MRI tomorrow with strict instructions to follow up with Gastro-Oncologist with results. Spoke with the Gastro- Oncologists office (Dr Machuca at [phone]) and spoke with the occupational ther MD who confirmed the need for MRI as there is a tumor board tomorrow to discuss the patient's case. Pt also complaining of discomfort to the left ear was recently treated for an ear infection. PMD: José Miguel Sanchez Sons reportedly share equal decision making capacity: Pao [phone]; Han [phone] Past Medical History Vital Signs: Last Vital Signs Temp 96.8 F L 02/09/18 09:40 Pulse 101 H 02/09/18 09:40 Resp 18 02/09/18 09:40 BP 114/69 02/09/18 09:40 Pulse Ox 96 02/09/18 09:40 - Medical History PMH: HTN, Hypercholesterolemia, Malignancy (hepatic cancer) Denies: HIV, Chronic Kidney Disease - Surgical History Surgical History: Hernia Repair - Family History Family History: States: Unknown Family Hx - Immunization History Hx Tetanus Toxoid Vaccination: No Hx Influenza Vaccination: No Hx Pneumococcal Vaccination: No - Home Medications Home Medications: Ambulatory Orders Medication Instructions Recorded RX: Megestrol [Megace] 40 mg PO BID 01/14/18 RX: Mirtazapine [Remeron] 30 mg PO HS 01/14/18 RX: Omeprazole 40 mg PO DAILY 01/14/18 RX: Tolterodine [Detrol LA] 4 mg PO DAILY 01/14/18 RX: Folic Acid 1 mg PO DAILY #30 tab 01/20/18 RX: Lactulose [Enulose] 20 gm PO Q12 30 Days #2 udc 01/20/18 RX: Thiamine [Vitamin B1 Tab] 100 mg PO DAILY #30 tab 01/20/18 RX: rifAXIMin [Xifaxan] 550 mg PO BID #60 tab 02/02/18 RX: Furosemide [Lasix] 40 mg PO DAILY #30 tab 02/11/18 RX: Spironolactone [Aldactone] 100 mg PO DAILY #30 tab 02/11/18 - Allergies Allergies/Adverse Reactions: Allergies Allergy/AdvReac Type Severity Reaction Status Date / Time No Known Allergies Allergy Verified 01/31/18 09:09 Physical Exam - Physical Exam Appears: Positive for: In Acute Distress (short of breath and in pain) Head Exam: Positive for: ATRAUMATIC Skin: Positive for: Dry, Jaundice. Negative for: Normal Color (multiple areas of echymosis from previous blood draws on both arms) Eye Exam: Positive for: Scleral icterus ENT: Positive for: Other (left cerumen impaction/hardened and unable to remove manually) Cardiovascular/Chest: Positive for: Regular Rate, Rhythm, Chest Non Tender, JVD Respiratory: Positive for: Normal Breath Sounds Pulses-Radial (L): 2+ Pulses-Radial (R): 2+ Gastrointestinal/Abdominal: Positive for: Distended, Asicites (spider angioma) Extremity: Positive for: Pedal Edema (oozing from right leg. BL pitting edema) Neurologic/Psych: Positive for: automotive software engineer II-XII - Laboratory Results Result Diagrams: 02/11/18 04:40 02/11/18 04:40 - ECG O2 Sat by Pulse Oximetry: 96 Medical Decision Making Medical Decision Makin yo M with advanced heapatic cancer, worsening ascites with SOB and significant discomfort. Also with left ear pain with significant hardened, im pacted cerumen. Gastro-oncologist needs emergenct MRI due to upcoming tumor boards. -Labs -MRI abd with and without contrast -Morphine for pain control -Hydrogen Peroxide in left ear -eventual admission 14:47 Just informed by RN and radiation control technician that patient was not lying still in MRI and therefore MRI with contrast was not performed. Patient already returned to room from radiology suite. Improved BP and meds to be given now. 1450 Pt admitted for IR paracentesis. IR consult placed. GI consult placed. Family given copy of MRI and MRI read faxed to the Oncologist. Nurse placed pad on stage 1 sacral ulcer. Hydrogen peroxide drops placed in left ear for hardened cerumen. Disposition - Clinical Impression Clinical Impression: Hepatorenal syndrome, Ascites of liver, Hepatic cancer - Patient ED Disposition Is Patient to be Admitted: Yes - Disposition Disposition Time: 14:50 Condition: GUARDED
[2018-02-09] MEDS ORDERED: Hydrogen Peroxide 237 ML SOL TP STA (11:40)
[2018-02-09] MEDS ORDERED: Hydrogen Peroxide 3% Soln (480ml) TP ONE (11:50)
[2018-02-09 11:52] LABS: BASO % 0.3 % (0.0-2.0); EOS # 0.2 K/uL (0.0-0.7); EOS % 1.1 % (0.0-4.0); HEMOGLOBIN 12.2 g/dL (12.0-18.0); LYMPH # 0.6 K/uL (1.0-4.3); LYMPH % 4.6 % (20.0-40.0); MEAN CELL VOLUME 108.4 fl (80.0-94.0); MEAN CORPUSCULAR HEMOGLOBIN 35.7 pg (27.0-31.0); MEAN PLATELET VOLUME 8.6 fl (7.2-11.7); MONO # 1.4 K/uL (0.0-0.8); MONO % 9.9 % (0.0-10.0); NEUT # 11.9 K/uL (1.8-7.0); NEUT % 84.1 % (50.0-75.0); NRBC % 0.1 % (0.0-0.0); PLATELET COUNT 148 K/uL (130-400); WHITE BLOOD COUNT 14.1 K/uL (4.8-10.8)
[2018-02-09 12:01] LABS: INR 1.6; PROTHROMBIN TIME 17.8 Seconds (9.8-13.1)
[2018-02-09 12:03] LABS: PARTIAL THROMBOPLASTIN TIME 29.5 Seconds (25.6-37.1)
[2018-02-09 12:05] LABS: ALB/GLOB RATIO 0.5 (1.0-2.1); ALBUMIN 2.2 g/dL (3.5-5.0); CALCIUM 8.3 mg/dL (8.4-10.2)
[2018-02-09 12:38] LABS: LYMPHOCYTE 5 % (20-50); MONOCYTE 10 % (0-10); NEUTROPHIL 85 % (42-75); PLATELET ESTIMATE NORMAL (NORMAL); TOTAL CELLS COUNTED 100
[2018-02-09 12:39] LABS: ANISOCYTOSIS SLIGHT; OVALOCYTES SLIGHT; SCHISTOCYTES SLIGHT
[2018-02-09] MEDS ORDERED: Gadodiamide 287 MG/ML VIAL (15ML) IV ONE (13:12)
--- NOTE | 2018-02-09 13:51 | RAD ---
Date of service: 02/09/2018 HISTORY: possible admission COMPARISON: 01/31/2018. FINDINGS: LUNGS: There are low lung volumes. The lungs are clear. PLEURA: No pleural effusions or pneumothorax. CARDIOVASCULAR: The heart is normal in size. No aortic atherosclerotic calcification present. OSSEOUS STRUCTURES: Within normal limits for the patient's age. VISUALIZED UPPER ABDOMEN: Normal. OTHER FINDINGS: None. IMPRESSION: No acute findings.
[2018-02-09 15:37] LABS: ABG ALLEN TEST YES; ARTERIAL BLOOD GAS HCO3 23.5 mmol/L (21-28); ARTERIAL BLOOD GAS O2 SAT 98.7 % (95-98); ARTERIAL BLOOD GAS PCO2 34 mm/Hg (35-45); ARTERIAL BLOOD GAS PH 7.42 (7.35-7.45); ARTERIAL BLOOD GAS PO2 70 mm/Hg (80-100); ARTERIAL BLOOD GAS TCO2 23.1 mmol/L (22-28)
--- NOTE | 2018-02-09 15:51 | MRI ---
Date of service: 02/09/2018 PROCEDURE: MRI Abdomen without contrast HISTORY: Worsening liver CA COMPARISON: CT abdomen/pelvis 01/14/2018 TECHNIQUE: Multisequence, multiplanar MR images of the abdomen without gadolinium contrast enhancement. FINDINGS: Please note that the examination is grossly limited due to extensive respiratory motion artifact. LIVER: Nodular contour. Atrophic. Consistent with hepatic cirrhosis. No discrete mass identified. Heterogeneous signal intensity. Poorly circumscribed rounded area of relatively increased T2 signal in the anterior right hepatic lobe, approximately 2.5 cm diameter. No other discrete mass. No biliary dilatation. GALLBLADDER: Dependent sludge. No evidence of cholelithiasis. No mural thickening. SPLEEN: Unremarkable. ADRENALS: Unremarkable. KIDNEYS: Small bilateral renal cortical cysts. No hydronephrosis. PANCREAS: Unremarkable. AORTA: No aneurysm. ASCITES: Extensive ascites. No evidence of serosal implants PERITONEUM: As above LYMPH NODES: Unremarkable. OTHER FINDINGS: None. IMPRESSION: Limited examination. Hepatic cirrhosis with heterogeneous signal intensity. At least 1 somewhat discrete mass is identified in the right lobe of the liver. Extensive ascites. No other significant abnormality peer
--- NOTE | 2018-02-09 16:19 | CP.PCM.HP ---
History of Present Illness - History of Present Illness History of Present Illness: 83 y/o M with a PMHx of Liver Cancer, Hepatic Encephalopathy, DM2 and HTN was brought by his 2 sons due to generalized weakness, confusion, increased abdominal distension and apparent SOB. Pt is awake, alert and verbal in Polish, confused not oriented. --Pt recently discharged from [facility] 7 days ago, in which 10.5 L of ascitic fluid was obtained by paracentesis. Rifaximin was started and added to Lactulose. Pt was also discharged from [facility] on 01/20/18, in which 5 liters of straw colored fluid were extracted. --Pt is being followed up by oncologist, Dr Machuca, at [facility] who recommended MRI of abdomen. Pt has an appoitnemnt on February 18 for further discussion. NKDA Meds: as in medication list. -PMHx: HTN; HLD; Liver Cirrhosis, Liver Cancer; anemia; Thrombocytopenia -PSHx: Hernia repair -SHx: Former Smoker; No Alcohol ; No illegal drug use; live with family -FHx: No known Family hx At ED: --CBC was remarakble for WBC 14.1-high. --Coag: PT/INR 17.8/1.6-elevated --CMP reviewed. --Rapid influenza negative. --CXR: unremarkable --MRI abdomen ordered. Present on Admission - Present on Admission Any Indicators Present on Admission: No History of DVT/PE: No Review of Systems - Review of Systems Systems not reviewed;Unavailable: Uncooperative (confused and lethargic.) Past Patient History - Infectious Disease Hx of Infectious Diseases: None - Tetanus Immunizations Tetanus Immunization: Unknown - Past Medical History & Family History Past Medical History?: Yes - Past Social History Smoking Status: Former Smoker - CARDIAC Hx Hypercholesterolemia: Yes Hx Hypertension: Yes - PULMONARY Hx Respiratory Disorders: No - NEUROLOGICAL Hx Neurological Disorder: No - HEENT Hx HEENT Problems: No Other/Comment: lt. ear clogged - RENAL Hx Chronic Kidney Disease: No - ENDOCRINE/METABOLIC Hx Endocrine Disorders: Yes Hx Diabetes Mellitus Type 2: Yes - HEMATOLOGICAL/ONCOLOGICAL Hx Human Immunodeficiency Virus (HIV): No - INTEGUMENTARY Hx Dermatological Problems: Yes - MUSCULOSKELETAL/RHEUMATOLOGICAL Hx Musculoskeletal Disorders: Yes Hx Falls: Yes - GASTROINTESTINAL Hx Gastrointestinal Disorders: No Other/Comment: LIver CA - GENITOURINARY/GYNECOLOGICAL Hx Genitourinary Disorders: No - PSYCHIATRIC Hx Psychophysiologic Disorder: No Hx Substance Use: No - SURGICAL HISTORY Hx Surgeries: Yes Hx Herniorrhaphy: Yes (multiple) Other/Comment: son reports multiple procedures on liver-son does not know specifics - ANESTHESIA Hx Anesthesia: Yes Hx Anesthesia Reactions: No Hx Malignant Hyperthermia: No Meds Allergies/Adverse Reactions: Allergies Allergy/AdvReac Type Severity Reaction Status Date / Time No Known Allergies Allergy Verified 01/31/18 09:09 Physical Exam - Constitutional Appears: Chronically Ill - Head Exam Head Exam: ATRAUMATIC - Eye Exam Eye Exam: EOMI - ENT Exam ENT Exam: Mucous Membranes Dry - Neck Exam Neck exam: Positive for: Full Rom, Normal Inspection. Negative for: Lymphadenopathy - Respiratory Exam Respiratory Exam: NORMAL BREATHING PATTERN. absent: Rales, Rhonchi, Wheezes - Cardiovascular Exam Cardiovascular Exam: +S1, +S2 - GI/Abdominal Exam GI & Abdominal Exam: Distended (ascitis fluid), Soft. absent: Diminished Bowel Sounds, Firm, Guarding, Rebound, Rigid, Tenderness - Extremities Exam Extremities exam: Positive for: pedal edema (+3 ). Negative for: calf tenderne ss Additional comments: bilateral lower extremities edema 3+, worse on RLE. Results - Vital Signs Recent Vital Signs: Last Vital Signs Temp 98.5 F 02/09/18 14:49 Pulse 96 H 02/09/18 14:49 Resp 17 02/09/18 14:49 BP 123/69 02/09/18 14:50 Pulse Ox 96 02/09/18 14:49 - Labs Result Diagrams: 02/09/18 11:46 02/09/18 11:46 Labs: Laboratory Results - last 24 hr 02/09/18 02/09/18 02/09/18 11:00 11:46 11:46 WBC 14.1 H D RBC 3.40 L Hgb 12.2 Hct 36.9 MCV 108.4 H D MCH 35.7 H MCHC 33.0 RDW 17.0 H Plt Count 148 MPV 8.6 Neut % (Auto) 84.1 H Lymph % (Auto) 4.6 L [place] % (Auto) 9.9 Eos % (Auto) 1.1 Baso % (Auto) 0.3 Neut # (Auto) 11.9 H Lymph # (Auto) 0.6 L [place] # (Auto) 1.4 H Eos # (Auto) 0.2 Baso # (Auto) 0.0 Neutrophils % (Manual) 85 H Lymphocytes % (Manual) 5 L Monocytes % (Manual) 10 Platelet Estimate Normal Anisocytosis (manual) Slight Macrocytosis (manual) Moderate Ovalocytes Slight Schistocytes Slight PT INR APTT pCO2 pO2 HCO3 ABG pH ABG Total CO2 ABG O2 Saturation ABG Base Excess Wilian Test ABG Potassium A-a O2 Difference Glucose Lactate FiO2 Sodium 131 L Potassium 5.4 H Chloride 101 Carbon Dioxide 21 L Anion Gap 14 BUN 64 H Creatinine 1.5 Est GFR ( Amer) 54 Est GFR (Non-Af Amer) 45 Random Glucose 227 H Calcium 8.3 L Total Bilirubin 7.4 H AST 172 H ALT 172 H D Alkaline Phosphatase 211 H Total Protein 6.5 Albumin 2.2 L Globulin 4.2 H Albumin/Globulin Ratio 0.5 L Lipase 165 Arterial Blood Potassium Influenza Typ A,B (EIA) Negative for flu a/b 02/09/18 02/09/18 11:46 15:34 WBC RBC Hgb Hct MCV MCH MCHC RDW Plt Count MPV Neut % (Auto) Lymph % (Auto) [place] % (Auto) Eos % (Auto) Baso % (Auto) Neut # (Auto) Lymph # (Auto) [place] # (Auto) Eos # (Auto) Baso # (Auto) Neutrophils % (Manual) Lymphocytes % (Manual) Monocytes % (Manual) Platelet Estimate Anisocytosis (manual) Macrocytosis (manual) Ovalocytes Schistocytes PT 17.8 H INR 1.6 APTT 29.5 pCO2 34 L pO2 70 L HCO3 23.5 ABG pH 7.42 ABG Total CO2 23.1 ABG O2 Saturation 98.7 H ABG Base Excess -1.7 Wilian Test Yes ABG Potassium 4.8 A-a O2 Difference 87.0 Glucose 207 H Lactate 2.6 H FiO2 28.0 Sodium 128.0 L Potassium Chloride 99.0 Carbon Dioxide Anion Gap BUN Creatinine Est GFR ( Amer) Est GFR (Non-Af Amer) Random Glucose Calcium Total Bilirubin AST ALT Alkaline Phosphatase Total Protein Albumin Globulin Albumin/Globulin Ratio Lipase Arterial Blood Potassium 4.8 Influenza Typ A,B (EIA) Assessment & Plan - Assessment and Plan (Free Text) Assessment: 83 y/o M with a PMHx of Liver Cancer, Hepatic Encephalopathy, DM2 and HTN was admitted for evaluation and management of generalized weakness, confusion, increased abdominal distension and apparent SOB. --Discussed with pt oncologist by ER physician, MRI Abdomen recommended. PLAN >Abdominal distension/Ascitis --Afebrile, stable, leukocytosis most likely reactive, abdomen soft and non-t dev. Very low suspicion for SBP. --Abdominal distension increased. --IR consulted for possible paracentesis tomorrow. --NPO except meds. --GI consult, Dr Segovia. --MRI Abdomen ordered. F/U results. --F/U labs tomorrow. >Altered Mental Status --At baseline as per sons. --Serum ammonia 84-mildly elevated. --GI consult, Dr Segovia. --Continue with home meds: lactulose and rifaximin. >Liver Cancer with Ascites --GI consult, Dr Segovia. --C/w home meds: Lasix, spironolactone, lactulose and rifaximin. --Consult IR for paracentesis --MRI Abdomen ordered. F/U results. --F/U labs tomorrow and treat accordingly. >DVT Prophylaxis: --SCD's for now --Possible paracentesis tomorrow. - Date & Time Date: 02/09/18 Time: 16:30
[2018-02-10 06:25] LABS: HEMOGLOBIN 12.3 g/dL (12.0-18.0); MEAN CELL VOLUME 109.2 fl (80.0-94.0); MEAN CORPUSCULAR HEMOGLOBIN 35.5 pg (27.0-31.0); MEAN CORPUSCULAR HGB CONC 32.5 g/dL (33.0-37.0); RBC 3.46 Mil/uL (4.40-5.90); RED CELL DISTRIBUTION WIDTH 17.4 % (11.5-14.5); WHITE BLOOD COUNT 11.1 K/uL (4.8-10.8)
[2018-02-10 06:31] LABS: INR 1.5; PROTHROMBIN TIME 17.2 Seconds (9.8-13.1)
[2018-02-10 06:42] LABS: CALCIUM 8.4 mg/dL (8.4-10.2)
[2018-02-10] MEDS: Pantoprazole 40 mg EC Tab PO SCH (10:16)
--- NOTE | 2018-02-10 16:31 | CP.PCM.PN ---
<Douglas Cummins - Last Filed: 02/10/18 16:37> Subjective - Date & Time of Evaluation Date of Evaluation: 02/10/18 Time of Evaluation: 09:00 - Subjective Subjective: 83 y/o M was seen and examined by bedside. Pt sleeping, responds to tactile and verbal stimuli, seems tired and not interested in conversation. Pt afebrile, NPO for possible paracentesis. Objective - Vital Signs/Intake and Output Vital Signs (last 24 hours): Temp Pulse Resp BP Pulse Ox 98.3 F 98 H 17 127/54 L 99 02/10/18 16:01 02/10/18 16:01 02/10/18 16:01 02/10/18 16:01 02/10/18 16:01 - Medications Medications: Current Medications Folic Acid (Folic Acid) 1 mg PO DAILY [facility] Last Admin: 02/10/18 10:15 Dose: 1 mg Furosemide (Lasix) 40 mg PO DAILY [facility] Last Admin: 02/10/18 10:16 Dose: 40 mg Lactulose (Enulose) 20 gm PO Q12 [facility] Last Admin: 02/10/18 10:27 Dose: 20 gm Megestrol Acetate (Megace) 40 mg PO BID [facility] Last Admin: 02/10/18 10:15 Dose: 40 mg Mirtazapine (Remeron) 30 mg PO HS [facility] Last Admin: 02/09/18 21:58 Dose: 30 mg Pantoprazole Sodium (Protonix Ec Tab) 40 mg PO DAILY [facility] Last Admin: 02/10/18 10:16 Dose: 40 mg Rifaximin (Xifaxan) 550 mg PO BID [facility]; Protocol Last Admin: 02/10/18 10:15 Dose: 550 mg Spironolactone (Aldactone) 100 mg PO DAILY [facility] Last Admin: 02/10/18 10:15 Dose: 100 mg Thiamine HCl (Vitamin B1 Tab) 100 mg PO DAILY [facility] Last Admin: 02/10/18 10:16 Dose: 100 mg Tolterodine Tartrate (Detrol) 2 mg PO BID [facility] Last Admin: 02/10/18 10:16 Dose: 2 mg - Labs Labs: 02/10/18 04:35 02/10/18 04:35 PT 17.2 Seconds (9.8-13.1) H 02/10/18 04:35 INR 1.5 02/10/18 04:35 APTT 29.5 Seconds (25.6-37.1) 02/09/18 11:46 - Constitutional Appears: Chronically Ill - Head Exam Head Exam: ATRAUMATIC, NORMAL INSPECTION - Eye Exam Eye Exam: EOMI, Scleral icterus - ENT Exam ENT Exam: Mucous Membranes Dry - Neck Exam Neck Exam: Full ROM. absent: Meningismus - Respiratory Exam Respiratory Exam: NORMAL BREATHING PATTERN. absent: Rhonchi, Wheezes, Respiratory Distress - Cardiovascular Exam Cardiovascular Exam: +S1, +S2 - GI/Abdominal Exam GI & Abdominal Exam: Soft. absent: Guarding, Rigid, Tenderness - Extremities Exam Extremities Exam: Full ROM. absent: Calf Tenderness, Joint Swelling, Pedal Edema - Back Exam Back Exam: absent: CVA tenderness (L), CVA tenderness (R) - Neurological Exam Neurological Exam: Alert, Awake Assessment and Plan - Assessment and Plan (Free Text) Assessment: 83 y/o M with a PMHx of Liver Cancer, Hepatic Encephalopathy, DM2 and HTN was admitted for evaluation and management of generalized weakness, confusion, increased abdominal distension and apparent SOB. --Discussed with pt oncologist by ER physician, MRI Abdomen recommended. --MRI Abdomen: limited examination, hepatic cirrhosis, 1 discrete mass in R lobe of liver, extensive ascitis. PLAN >Abdominal distension/Ascitis --Afebrile, stable. --Parecentesis not perfromed today due to lack of consent. --IR consulted for possible paracentesis tomorrow. --Hepatic diet for dinner. --NPO after midnight. --IV D5W-1/2NS-20KCl at 100mL/hr. --GI consult, Dr Segovia. --F/U labs tomorrow. >Altered Mental Status --Serum ammonia 84-mildly elevated. --GI on board, Dr Segovia. --Continue with home meds: lactulose and rifaximin. >Liver Cancer with Ascites --GI consult, Dr Segovia. --Lasix increased to 40mg daily and Spironolactone 100mg daily. --IR on board for paracentesis --F/U labs tomorrow and treat accordingly. >DVT Prophylaxis: --SCD's for now --Possible paracentesis tomorrow. <Jessica Suarez - Last Filed: 02/12/18 00:29> Objective - Vital Signs/Intake and Output Vital Signs (last 24 hours): Temp Pulse Resp BP Pulse Ox 97.7 F 88 18 122/72 96 02/11/18 12:07 02/11/18 12:09 02/11/18 12:09 02/11/18 12:09 02/11/18 12:07 - Labs Labs: 02/11/18 04:40 02/11/18 04:40 PT 17.2 Seconds (9.8-13.1) H 02/10/18 04:35 INR 1.5 02/10/18 04:35 APTT 29.5 Seconds (25.6-37.1) 02/09/18 11:46 Attending/Attestation - Attestation I have personally seen and examined this patient.: Yes I have fully participated in the care of the patient.: Yes I have reviewed all pertinent clinical information, including history, physical exam and plan: Yes Notes (Text): 02/12/18 00:28 agree with findings and plan as above chronically ill discussed at length with GI, for paracentesis poor prognosis
[2018-02-10] MEDS: Potassium Ch 20mEq in D5-1/2NS 1,000 ML IV SCH (17:55)
[2018-02-11] MEDS: Potassium Ch 20mEq in D5-1/2NS 1,000 ML IV SCH (03:41)
[2018-02-11 06:08] LABS: HEMOGLOBIN 11.8 g/dL (12.0-18.0); MEAN CELL VOLUME 109.8 fl (80.0-94.0); MEAN CORPUSCULAR HGB CONC 32.8 g/dL (33.0-37.0); RBC 3.28 Mil/uL (4.40-5.90); RED CELL DISTRIBUTION WIDTH 17.9 % (11.5-14.5); WHITE BLOOD COUNT 11.8 K/uL (4.8-10.8)
[2018-02-11 06:29] LABS: ALB/GLOB RATIO 0.5 (1.0-2.1); ALBUMIN 2.1 g/dL (3.5-5.0); CALCIUM 8.2 mg/dL (8.4-10.2)
--- NOTE | 2018-02-11 08:30 | CON ---
DATE: 02/10/2018 REFERRING DOCTOR: Dr. Suarez REASON FOR CONSULTATION: Encephalopathy. HISTORY OF PRESENT ILLNESS: This is a pleasant 83-year-old man with multiple admissions for the same thing, has a history of liver CA, being chemoembolized at [place], has hepatic encephalopathy which is recurrent, hypertension, diabetes, confusion and disorientation at this time. The patient was seen here about a week ago and one week prior to that the patient has also accumulated ascites. Currently lying in bed, lethargic, responsive, in no apparent distress. PAST MEDICAL HISTORY: As above. PAST SURGICAL HISTORY: As above. MEDICATIONS: Reviewed. REVIEW OF SYSTEMS: Unable to obtain from the patient. PHYSICAL EXAMINATION VITAL SIGNS: Here in the hospital, grossly unremarkable. GENERAL: This is a pleasant elderly male, lying in bed comfortably, in no apparent distress. HEENT: Head: Normocephalic and atraumatic. Eyes: Pupils are equally reactive to light bilaterally. No conjunctival pallor or icterus. NECK: Supple. Normal range of motion. No lymphadenopathy appreciated. LUNGS: Coarse breath sounds bilaterally. HEART: S1 and S2, regular rate and rhythm. No murmurs appreciated. ABDOMEN: Soft and nontender. There is some fluid wave present. No rebound. No guarding. RECTAL: Deferred. EXTREMITIES: Pulses present bilaterally. SKIN: Warm, dry and intact. NEUROLOGIC: A and O x2. LABORATORY DATA: Labs and radiology have been reviewed. WBC is 11.1, hemoglobin is 12.3, platelet count is 139. INR 1.5. BUN is 68, creatinine 2. Sugars are 180. Alk phos is 211 from 184, AST and ALT are 172 and 172, total bili is 7.4. MRI done shows a mass in the right lobe of the liver, chance of ascites. ASSESSMENT AND PLAN: This is an 83-year-old man with decompensated hepatocellular carcinoma and cirrhosis. Recommend paracentesis and aggressive administration of oral Xifaxan. The patient's prognosis is guarded. Thank you for the consult. Shawn Segovia MD/ PhD cc: Dr. Bashir [facility] # [id number]
[2018-02-11] MEDS: Pantoprazole 40 mg EC Tab PO SCH (09:01)
--- NOTE | 2018-02-11 10:09 | CP.PCM.PN ---
Subjective - Date & Time of Evaluation Date of Evaluation: 02/11/18 Time of Evaluation: 10:08 - Subjective Subjective: no overnight events Objective - Vital Signs/Intake and Output Vital Signs (last 24 hours): Temp Pulse Resp BP Pulse Ox 97.3 F L 97 H 20 124/71 95 02/11/18 07:35 02/11/18 07:35 02/11/18 07:35 02/11/18 09:00 02/11/18 07:35 - Medications Medications: Current Medications Folic Acid (Folic Acid) 1 mg PO DAILY [facility] Last Admin: 02/11/18 09:00 Dose: 1 mg Furosemide (Lasix) 40 mg PO DAILY [facility] Last Admin: 02/11/18 09:00 Dose: 40 mg Lactulose (Enulose) 20 gm PO Q12 [facility] Last Admin: 02/11/18 08:59 Dose: 20 gm Megestrol Acetate (Megace) 40 mg PO BID [facility] Last Admin: 02/11/18 09:01 Dose: 40 mg Mirtazapine (Remeron) 30 mg PO HS [facility] Last Admin: 02/10/18 21:41 Dose: 30 mg Pantoprazole Sodium (Protonix Ec Tab) 40 mg PO DAILY [facility] Last Admin: 02/11/18 09:01 Dose: 40 mg Rifaximin (Xifaxan) 550 mg PO BID [facility]; Protocol Last Admin: 02/11/18 09:02 Dose: 550 mg Spironolactone (Aldactone) 100 mg PO DAILY [facility] Last Admin: 02/11/18 08:59 Dose: 100 mg Thiamine HCl (Vitamin B1 Tab) 100 mg PO DAILY [facility] Last Admin: 02/11/18 09:01 Dose: 100 mg Tolterodine Tartrate (Detrol) 2 mg PO BID [facility] Last Admin: 02/11/18 08:59 Dose: 2 mg - Labs Labs: 02/11/18 04:40 02/11/18 04:40 PT 17.2 Seconds (9.8-13.1) H 02/10/18 04:35 INR 1.5 02/10/18 04:35 APTT 29.5 Seconds (25.6-37.1) 02/09/18 11:46 - Head Exam Head Exam: NORMOCEPHALIC - Respiratory Exam Respiratory Exam: Clear to Ausculation Bilateral, NORMAL BREATHING PATTERN - Cardiovascular Exam Cardiovascular Exam: REGULAR RHYTHM - GI/Abdominal Exam GI & Abdominal Exam: Distended, Soft, Normal Bowel Sounds Assessment and Plan - Assessment and Plan (Free Text) Assessment: 83 yo male with decompensated cirrhosis more alert for paracentesis today cont lactulose and xifaxan
[2018-02-11] MEDS ORDERED: Lidocaine 1% Inj (20ml) ONE (11:36)
[2018-02-11 12:07] VITALS: TEMP 97.7; O2SAT 96
[2018-02-11 12:10] VITALS: BP 122/72; PULSE 88; RESP 18
--- NOTE | 2018-02-11 12:34 | PCM.SURG1 ---
Surgeon's Initial Post Op Note - Surgeon's Notes Surgeon: Sim Sarabia MD [employer] Supervisor: NONE Type of Anesthesia: Local Pre-Operative Diagnosis: Ascites Operative Findings: US showed large amount of ascites Post-Operative Diagnosis: Ascites Operation Performed: US guided paracentesis Specimen/Specimens Removed: 4.4 liters of straw colored fluid Estimated Blood Loss: EBL {In ML}: 0 Blood Products Given: N/A Drains Used: No Drains Post-Op Condition: Fair Date of Surgery/Procedure: 02/11/18 Time of Surgery/Procedure: 11:55
--- NOTE | 2018-02-11 12:39 | US ---
Date of Procedure: 02/11/2018 PROCEDURE: Ultrasound-guided paracentesis, CPT 99661 Medications: 7 cc 1% Lidocaine HISTORY: Ascites, abdominal pain, cirrhosis TECHNIQUE: Following informed consent , the patient was placed supine on the stretcher and the site was marked. A limited abdominal ultrasound was performed that showed a large amount of intra-abdominal fluid. Procedural time out was called and the Pt's abdomen was marked and prepped and draped in the usual sterile fashion. Ultrasound-guided large volume paracentesis performed. A total of 4.8 liters of straw colored fluid was removed without complication. IMPRESSION: Ultrasound-guided large volume paracentesis.
--- NOTE | 2018-02-11 15:25 | CP.PCM.DIS ---
Provider - Provider Date of Admission: 02/09/18 14:58 Attending physician: Zack Bashir MD Primary care physician: José Miguel Rosales Oncologist: Dr Gerson Kate at [facility]. Consults: 02/09/18 14:56 Gastroenterology Consult Stat Comment: Consulting Provider: Shawn Segovia Consulting Physician: Shawn Segovia Reason for Consult: worsening ascites, poss SBP, AMS 02/10/18 01:24 Nursing Referral for Palliative Care Routine Comment: Consulting Provider: Nicole Graham Physician Instructions: Reason For Exam: Advanced Liver CA Nursing Referral for Wound Care Routine Comment: Physician Instructions: Reason For Exam: Sacral redness/scabs on b/l UE Time Spent in preparation of Discharge (in minutes): 35 Diagnosis - Discharge Diagnosis (1) Ascites of liver Status: Acute Comment: --S/P Paracentesis, 4.4 L of strw colored ascitic fluid. (2) Hepatic cancer Status: Acute Comment: --F/U with PCP and oncologist at [facility]. (3) Hepatic encephalopathy Status: Acute Comment: --Stable at baseline, Continue with Lactulose and Rifaximine. Hospital Course - Lab Results Lab Results: Micro Results 02/09/18 11:46 Blood Blood Culture - Preliminary NO GROWTH AFTER 48 HOURS Most Recent Lab Values WBC 11.8 K/uL (4.8-10.8) H 02/11/18 04:40 RBC 3.28 Mil/uL (4.40-5.90) L 02/11/18 04:40 Hgb 11.8 g/dL (12.0-18.0) L 02/11/18 04:40 Hct 36.0 % (35.0-51.0) 02/11/18 04:40 MCV 109.8 fl (80.0-94.0) H 02/11/18 04:40 MCH 36.0 pg (27.0-31.0) H 02/11/18 04:40 MCHC 32.8 g/dL (33.0-37.0) L 02/11/18 04:40 RDW 17.9 % (11.5-14.5) H 02/11/18 04:40 Plt Count 141 K/uL (130-400) 02/11/18 04:40 MPV 8.6 fl (7.2-11.7) 02/09/18 11:46 Neut % (Auto) 84.1 % (50.0-75.0) H 02/09/18 11:46 Lymph % (Auto) 4.6 % (20.0-40.0) L 02/09/18 11:46 [place] % (Auto) 9.9 % (0.0-10.0) 02/09/18 11:46 Eos % (Auto) 1.1 % (0.0-4.0) 02/09/18 11:46 Baso % (Auto) 0.3 % (0.0-2.0) 02/09/18 11:46 Neut # (Auto) 11.9 K/uL (1.8-7.0) H 02/09/18 11:46 Lymph # (Auto) 0.6 K/uL (1.0-4.3) L 02/09/18 11:46 [place] # (Auto) 1.4 K/uL (0.0-0.8) H 02/09/18 11:46 Eos # (Auto) 0.2 K/uL (0.0-0.7) 02/09/18 11:46 Baso # (Auto) 0.0 K/uL (0.0-0.2) 02/09/18 11:46 Neutrophils % (Manual) 85 % (42-75) H 02/09/18 11:46 Lymphocytes % (Manual) 5 % (20-50) L 02/09/18 11:46 Monocytes % (Manual) 10 % (0-10) 02/09/18 11:46 Platelet Estimate Normal (NORMAL) 02/09/18 11:46 Anisocytosis (manual) Slight 02/09/18 11:46 Macrocytosis (manual) Moderate 02/09/18 11:46 Ovalocytes Slight 02/09/18 11:46 Schistocytes Slight 02/09/18 11:46 PT 17.2 Seconds (9.8-13.1) H 02/10/18 04:35 INR 1.5 02/10/18 04:35 APTT 29.5 Seconds (25.6-37.1) 02/09/18 11:46 pCO2 34 mm/Hg (35-45) L 02/09/18 15:34 pO2 70 mm/Hg (80-100) L 02/09/18 15:34 HCO3 23.5 mmol/L (21-28) 02/09/18 15:34 ABG pH 7.42 (7.35-7.45) 02/09/18 15:34 ABG Total CO2 23.1 mmol/L (22-28) 02/09/18 15:34 ABG O2 Saturation 98.7 % (95-98) H 02/09/18 15:34 ABG Base Excess -1.7 mmol/L (-2.0-3.0) 02/09/18 15:34 Wilian Test Yes 02/09/18 15:34 ABG Potassium 4.8 mmol/L (3.6-5.2) 02/09/18 15:34 A-a O2 Difference 87.0 mm/Hg 02/09/18 15:34 Sodium 128.0 mmol/L (132-148) L 02/09/18 15:34 Chloride 99.0 mmol/L (98-107) 02/09/18 15:34 Glucose 207 mg/dL (75-110) H 02/09/18 15:34 Lactate 2.6 mmol/L (0.7-2.1) H 02/09/18 15:34 FiO2 28.0 % 02/09/18 15:34 Sodium 133 mmol/l (132-148) 02/11/18 04:40 Potassium 4.9 MMOL/L (3.6-5.0) 02/11/18 04:40 Chloride 102 mmol/L (98-107) 02/11/18 04:40 Carbon Dioxide 23 mmol/L (22-30) 02/11/18 04:40 Anion Gap 13 (10-20) 02/11/18 04:40 BUN 67 mg/dl (9-20) H 02/11/18 04:40 Creatinine 1.7 mg/dl (0.8-1.5) H 02/11/18 04:40 Est GFR ( Amer) 47 02/11/18 04:40 Est GFR (Non-Af Amer) 39 02/11/18 04:40 POC Glucose (mg/dL) 246 mg/dL (65-110) H 02/11/18 05:31 Random Glucose 237 mg/dL (75-110) H 02/11/18 04:40 Calcium 8.2 mg/dL (8.4-10.2) L 02/11/18 04:40 Total Bilirubin 7.6 mg/dl (0.2-1.3) H 02/11/18 04:40 AST 190 U/L (17-59) H 02/11/18 04:40 ALT 170 U/L (21-72) H 02/11/18 04:40 Alkaline Phosphatase 226 U/L (38-126) H 02/11/18 04:40 Ammonia 84 umo/L (16-60) H D 02/09/18 15:18 Total Protein 6.2 G/DL (6.3-8.2) L 02/11/18 04:40 Albumin 2.1 g/dL (3.5-5.0) L 02/11/18 04:40 Globulin 4.1 gm/dL (2.2-3.9) H 02/11/18 04:40 Albumin/Globulin Ratio 0.5 (1.0-2.1) L 02/11/18 04:40 Lipase 165 U/L (23-300) 02/09/18 11:46 Arterial Blood Potassium 4.8 mmol/L (3.6-5.2) 02/09/18 15:34 Influenza Typ A,B (EIA) Negative for flu a/b (NEGATIVE) 02/09/18 11:00 - Hospital Course Hospital Course: 83 y/o M with a PMHx of Liver Cancer, Hepatic Encephalopathy, DM2 and HTN was ad mitted for evaluation and management of generalized weakness, confusion, increased abdominal distension and apparent SOB. --Serum ammonia was 84-mildly elevated. --MRI Abdomen: limited examination, hepatic cirrhosis, 1 discrete mass in R lobe of liver, extensive ascitis. --S/P paracentesis, 4.4 L of straw colored ascitic fluid was obtained. --Lasix's dosage was increased to 40mg daily and Spironolactone increased to 100mg. --Pt afebrile, tolerating PO, urinating daily, soft normal bowel movements with NO acute events overnight. Pt is stable for discharge. Pt and family were educated on the patient's current status and low chance for long survival, they were instructed to f/u with oncologist and PCP within 1 week and have questions answered about therapy options. - Date & Time of H&P Date of H&P: 02/09/18 Time of H&P: 16:23 Discharge Exam - Head Exam Head Exam: NORMOCEPHALIC - Eye Exam Eye Exam: EOMI, Scleral icterus - ENT Exam ENT Exam: Mucous Membranes Moist - Neck Exam Neck exam: Full Rom, Normal Inspection - Respiratory Exam Respiratory Exam: NORMAL BREATHING PATTERN, UNREMARKABLE. absent: Wheezes, Respiratory Distress - Cardiovascular Exam Cardiovascular Exam: +S1, +S2 - GI/Abdominal Exam GI & Abdominal Exam: Soft. absent: Distended, Guarding, Hernia, Rebound, Rigid, Tenderness Additional comments: presence of caput medusae. - Neurological Exam Neurological exam: Alert, Oriented x3 Discharge Plan - Discharge Medications Prescriptions: Furosemide [Lasix] 40 mg PO DAILY #30 tab Spironolactone [Aldactone] 100 mg PO DAILY #30 tab - Follow Up Plan Condition: GUARDED Disposition: HOME/ ROUTINE Instructions: Altered Mental Status (DC), Fluid in the Belly (Ascites) (DC) Additional Instructions: --Please f/u with oncologist at [place] within 1 week. --Start Lasix 40mg and Spironolactone 100mg daily. that were [facility] to pharmacy ([facility]) --Stop Lasix 20mg daily and Spironolactone 12.5mg. Referrals: Gerson Machuca MD [Medical Doctor] -
== END 2018-02-11 14:35 | disposition home or self-care (01) ==
LOC: H.ER 09:09 → H.ERHOLD 14:58 → INTOOBSV 14:58 → H.TEL 19:26
PROVIDERS: ADMIT Hospitalist; ATTEND Hospitalist
DX: C22.0 Liver cell carcinoma (principal); I10 Essential (primary) hypertension; E78.00 Pure hypercholesterolemia, unspecified; K74.60 Unspecified cirrhosis of liver; K72.90 Hepatic failure, unspecified without coma; E11.9 Type 2 diabetes mellitus without complications; R18.0 Malignant ascites; Z87.891 Personal history of nicotine dependence
CPT/HCPCS: 36415; 36600; 49083; 71045; 74181; 80048; 80053; 82140; 82803; 82948; 83690; 85025; 85027; 85610; 85730; 87040; 87804; 96361; 96374; 96375; 99285; C1729; G0378; J1940; J2270

== ENCOUNTER 2018-02-15 16:38 | Inpatient (IN) | payer MEDICARE ==
[2018-02-15 16:38] VITALS: BMI 29.7
--- NOTE | 2018-02-15 17:56 | RAD ---
Date of service: 02/15/2018 HISTORY: weakness COMPARISON: Comparison chest dated 02/09/2018 FINDINGS: LUNGS: Low lung volumes. Persistent bilateral lower lobe opacities likely representing some combination of atelectasis and or infiltrate with bilateral effusions left larger than right PLEURA: As above. No pneumothorax apparent. CARDIOVASCULAR: Aorta ectatic and uncoiled. No aortic atherosclerotic calcification present. Cardiomegaly. OSSEOUS STRUCTURES: No significant abnormalities. VISUALIZED UPPER ABDOMEN: Normal. OTHER FINDINGS: None. IMPRESSION: No active disease.
[2018-02-15 19:27] LABS: BASO # 0.1 K/uL (0.0-0.2); BASO % 0.2 % (0.0-2.0); HEMOGLOBIN 12.1 g/dL (12.0-18.0); LYMPH # 0.5 K/uL (1.0-4.3); LYMPH % 1.5 % (20.0-40.0); MEAN CELL VOLUME 112.7 fl (80.0-94.0); MEAN CORPUSCULAR HEMOGLOBIN 36.2 pg (27.0-31.0); MEAN CORPUSCULAR HGB CONC 32.1 g/dL (33.0-37.0); MEAN PLATELET VOLUME 9.7 fl (7.2-11.7); MONO # 1.7 K/uL (0.0-0.8); MONO % 4.9 % (0.0-10.0); NEUT # 32.3 K/uL (1.8-7.0); NEUT % 93.4 % (50.0-75.0); PLATELET COUNT 146 K/uL (130-400); RBC 3.34 Mil/uL (4.40-5.90); RED CELL DISTRIBUTION WIDTH 19.3 % (11.5-14.5); WHITE BLOOD COUNT 34.6 K/uL (4.8-10.8)
[2018-02-15 19:31] LABS: INR 1.9; PROTHROMBIN TIME 22.1 Seconds (9.8-13.1)
[2018-02-15 19:57] LABS: TROPONIN I 0.124 ng/mL (0.00-0.120)
[2018-02-15 19:58] LABS: ALB/GLOB RATIO 0.5 (1.0-2.1); CALCIUM 8.3 mg/dL (8.4-10.2)
[2018-02-15 20:13] LABS: ANISOCYTOSIS SLIGHT; BANDS 4 % (0-2); LYMPHOCYTE 3 % (20-50); MONOCYTE 3 % (0-10); NEUTROPHIL 90 % (42-75); PLATELET ESTIMATE NORMAL (NORMAL); TOTAL CELLS COUNTED 100
[2018-02-15] MEDS ORDERED: Piperacillin/Tazobact 3.375 GM in Sodium Chloride 0.9% 100 ML IVPB STA (20:16)
--- NOTE | 2018-02-15 20:39 | ED PDOC ---
HPI: General Adult Time Seen by Provider: 02/15/18 16:48 Chief Complaint (Nursing): Abdominal Pain Chief Complaint (Provider): Lethargy History Per: Family History/Exam Limitations: clinical condition Onset/Duration Of Symptoms: Days Current Symptoms Are (Timing): Still Present Additional Complaint(s): 83 y/o male with a PMHx of liver cancer and cirrhosis brought in by family for progressive weakness, onset three days ago. Patient was just discharged from the Hospital on for acides liver cirrhosis. Family report patient is too weak to get out of bed and walk. Family states patient is excessively sleepy today prompting today's visit. Family is concerned patient is getting jaundice. Family additionally report patient has had poor PO intake since being discharged from the hospital. Family state patient is able to eat. Otherwise, family denies nausea and vomiting. All history obtained from family due to patient's clinical condition. PMD: José Miguel Sanchez Past Medical History Reviewed: Historical Data, Nursing Documentation, Vital Signs Vital Signs: Last Vital Signs Temp 97.4 F L 02/15/18 16:41 Pulse 104 H 02/15/18 16:41 Resp 18 02/15/18 16:41 BP 125/68 02/15/18 16:41 Pulse Ox 94 L 02/15/18 16:41 - Medical History PMH: Anemia, HTN, Hypercholesterolemia, Malignancy (hepatic cancer) Denies: HIV, Chronic Kidney Disease - Surgical History Surgical History: Hernia Repair - Family History Family History: States: Unknown Family Hx - Immunization History Hx Tetanus Toxoid Vaccination: No Hx Influenza Vaccination: No Hx Pneumococcal Vaccination: No - Home Medications Home Medications: Ambulatory Orders Medication Instructions Recorded RX: Megestrol [Megace] 40 mg PO BID 01/14/18 RX: Mirtazapine [Remeron] 30 mg PO HS 01/14/18 RX: Omeprazole 40 mg PO DAILY 01/14/18 RX: Tolterodine [Detrol LA] 4 mg PO DAILY 01/14/18 RX: Folic Acid 1 mg PO DAILY #30 tab 01/20/18 RX: Lactulose [Enulose] 20 gm PO Q12 30 Days #2 udc 01/20/18 RX: Thiamine [Vitamin B1 Tab] 100 mg PO DAILY #30 tab 01/20/18 RX: rifAXIMin [Xifaxan] 550 mg PO BID #60 tab 02/02/18 RX: Furosemide [Lasix] 40 mg PO DAILY #30 tab 02/11/18 RX: Spironolactone [Aldactone] 100 mg PO DAILY #30 tab 02/11/18 - Allergies Allergies/Adverse Reactions: Allergies Allergy/AdvReac Type Severity Reaction Status Date / Time No Known Allergies Allergy Verified 01/31/18 09:09 Review of Systems ROS Statement: Except As Marked, All Systems Reviewed And Found Negative (as per HPI) Constitutional: Positive for: Weakness Gastrointestinal: Positive for: Other (poor po intake). Negative for: Nausea, Vomiting Skin: Positive for: Other (jaundice) Physical Exam - Reviewed Nursing Documentation Reviewed: Yes Vital Signs Reviewed: Yes - Physical Exam Appears: Positive for: In Acute Distress (appears chronically ill but with acute obtundation) Head Exam: Positive for: ATRAUMATIC, NORMOCEPHALIC Skin: Positive for: Warm, Dry, Jaundice Eye Exam: Positive for: Scleral icterus ENT: Positive for: Other (dry mucous membranes) Neck: Positive for: Painless ROM, Supple Cardiovascular/Chest: Positive for: Regular Rate, Rhythm. Negative for: Murmur Respiratory: Positive for: Normal Breath Sounds. Negative for: Respiratory Distress Gastrointestinal/Abdominal: Positive for: Soft, Distended, Asicites. Negative for: Mass, Guarding, Hernia Back: Positive for: Normal Inspection. Negative for: Vertebral Tenderness Extremity: Positive for: Normal ROM. Negative for: Deformity Lymphatic: Negative for: Adenopathy Neurologic/Psych: Positive for: Other (Confused and no focal deficits). Negative for: Motor/Sensory Deficits - Laboratory Results Result Diagrams: 02/15/18 18:43 02/15/18 18:43 - ECG O2 Sat by Pulse Oximetry: 94 (RA) Pulse Ox Interpretation: Normal Medical Decision Making Medical Decision Making: Time: 1702 Impression: Liver failure Differentials include but not limited to dehydration, worsening liver failure, electrolyte abnormality, hepatic encephalopathy, sepsis. Plan: -- Type and Screen -- VBG -- EKG -- Ammonia -- Amylase -- B-Type Natriuretic Peptide -- CMP -- Lact Acid, Plasma -- LDH -- Lipase -- Magnesium -- Phosphorus -- Troponin I -- CBC with differentials -- PTT -- Prothrombin time -- CXR Portable -- Blood Culture -- Urine Culture -- IV Insertion -- Urinalysis Time: 1913 Plan: -- Urinary Straight Catheter Time: 2020 -- Labs demonstrate worsening liver and renal function. Leukocytosis. Elevated trop. -- Call Cardiology Consult -- Zosyn 3.375 gm Sodium Chloride 0.9% 100 ml IVPB --DW Dr Flores Hospitalist for [facility] PMD. Place in ICU for multiorgan failure and sepsis. -- Discussed with Dr. Murphy who reviewed labs and recommends Aspirin, Beta Jae and Echo at this time. (Orders placed by him.) Scribe Attestation: Documented by Jurgen Valadez, acting as a scribe for Annia Rossi MD. Provider Scribe Attestation: All medical record entries made by the Scribe were at my direction and persona lly dictated by me. I have reviewed the chart and agree that the record accurately reflects my personal performance of the history, physical exam, medical decision making, and the department course for this patient. I have also personally directed, reviewed, and agree with the discharge instructions and disposition. Disposition - Clinical Impression Clinical Impression: Hepatic encephalopathy, Hepatorenal syndrome, Ascites of liver, Sepsis - Disposition Disposition Time: 20:00 Condition: CRITICAL - Pt Status Changed To: Hospital Disposition Of: Inpatient - Admit Certification Admit to Inpatient:: After my assessment, the patient will require hospitalization for at least two midnights. This is because of the severity of symptoms shown, intensity of services needed, and/or the medical risk in this patient being treated as an outpatient. - POA Present On Arrival: None
[2018-02-15] MEDS ORDERED: Piperacillin/Tazobact 3.375 gm Inj IVPB ONE (20:49)
--- NOTE | 2018-02-15 21:00 | CP.PCM.HP ---
History of Present Illness - History of Present Illness History of Present Illness: [facility]: Dr. Vazquez. Chief Complaint: Altered mental status/Abdominal pain The patient was seen and examined in the ED HPI: The hx was obtained from the Patient's son as the patient was in a state of lethargy. This is an 83 years old male with hx of HTN; HLD; Liver cancer receiving chemotherapy. He was last admitted on 02/09/18 and discharged on 02/11/18 after Partacentesis and dx of Hepatic encephalopathy. He is now brought to the ED because of progressive weakness, lethargy, very sleepy with poor intake. No vomits nor diarrhea. He refers diffuse abdominal pains, no nausea nor vomits. PMH: HTN; HLD; Liver Cirrhosis, Liver Cancer; anemia; Thrombocytopenia PSH: Hernia repair; multiple problems with the liver SH: Former Smoker; No Alcohol ; No illegal drug use; live with family FH: No known Family hx Medication: Reviewed Present on Admission - Present on Admission Any Indicators Present on Admission: No History of DVT/PE: No History of Uncontrolled Diabetes: No Urinary Catheter: No Decubitus Ulcer Present: No Review of Systems - Review of Systems Review of Systems: Review of system is limited because the patient is lethargic Past Patient History - Infectious Disease Hx of Infectious Diseases: None - Tetanus Immunizations Tetanus Immunization: Unknown - Past Medical History & Family History Past Medical History?: Yes - Past Social History Smoking Status: Never Smoked Chewing Tobacco Use: No Cigar Use: No Alcohol: None Drugs: Denies Home Situation {Lives}: With Family - CARDIAC Hx Hypercholesterolemia: Yes Hx Hypertension: Yes - PULMONARY Hx Respiratory Disorders: No - NEUROLOGICAL Hx Neurological Disorder: No - HEENT Hx HEENT Problems: No - RENAL Hx Chronic Kidney Disease: No - ENDOCRINE/METABOLIC Hx Endocrine Disorders: Yes Hx Diabetes Mellitus Type 2: Yes - HEMATOLOGICAL/ONCOLOGICAL Hx Anemia: Yes Hx Human Immunodeficiency Virus (HIV): No - INTEGUMENTARY Hx Dermatological Problems: No - MUSCULOSKELETAL/RHEUMATOLOGICAL Hx Musculoskeletal Disorders: Yes Hx Falls: Yes - GASTROINTESTINAL Hx Gastrointestinal Disorders: No Other/Comment: LIver CA - GENITOURINARY/GYNECOLOGICAL Hx Genitourinary Disorders: No - PSYCHIATRIC Hx Psychophysiologic Disorder: No Hx Substance Use: No - SURGICAL HISTORY Hx Surgeries: Yes Hx Herniorrhaphy: Yes (multiple) Other/Comment: son reports multiple procedures on liver-son does not know specifics - ANESTHESIA Hx Anesthesia: Yes Hx Anesthesia Reactions: No Hx Malignant Hyperthermia: No Meds Allergies/Adverse Reactions: Allergies Allergy/AdvReac Type Severity Reaction Status Date / Time No Known Allergies Allergy Verified 01/31/18 09:09 Physical Exam - Head Exam Head Exam: ATRAUMATIC, NORMAL INSPECTION, NORMOCEPHALIC - Eye Exam Eye Exam: EOMI Pupil Exam: NORMAL ACCOMODATION, PERRL - ENT Exam ENT Exam: Mucous Membranes Dry - Neck Exam Neck exam: Positive for: Full Rom, Normal Inspection. Negative for: Lymphadenopathy, Tenderness - Respiratory Exam Respiratory Exam: Clear to Auscultation Bilateral. absent: Rales, Rhonchi, Wheezes - Cardiovascular Exam Cardiovascular Exam: REGULAR RHYTHM, RRR, +S1, +S2 - GI/Abdominal Exam Additional comments: Full, soft,Liquid thrills, Mild generalized tenderness about the abdomen, No guarding nor rebound tenderness - Rectal Exam Rectal Exam: Deferred, Black Stool - Extremities Exam Extremities exam: Positive for: full ROM. Negative for: calf tenderness, normal inspection - Back Exam Back exam: NORMAL INSPECTION. absent: CVA tenderness (L), CVA tenderness (R) - Neurological Exam Additional comments: Lethargic, Alert, no facial droop, moving both upper extremities. No focal neurological findings. - Psychiatric Exam Psychiatric exam: Normal Affect, Normal Mood - Skin Skin Exam: Dry, Intact, Normal Color, Rash, Warm Results - Vital Signs Recent Vital Signs: Last Vital Signs Temp 99.7 F H 02/15/18 20:56 Pulse 96 H 02/15/18 20:56 Resp 17 02/15/18 20:56 BP 97/62 L 02/15/18 20:56 Pulse Ox 95 02/15/18 20:56 - Labs Result Diagrams: 02/15/18 18:43 02/15/18 18:43 Labs: Laboratory Results - last 24 hr 02/15/18 02/15/18 02/15/18 18:43 18:43 18:43 WBC 34.6 H D RBC 3.34 L Hgb 12.1 Hct 37.7 MCV 112.7 H D MCH 36.2 H MCHC 32.1 L RDW 19.3 H Plt Count 146 MPV 9.7 Neut % (Auto) 93.4 H Lymph % (Auto) 1.5 L Clarke % (Auto) 4.9 Eos % (Auto) 0.0 Baso % (Auto) 0.2 Neut # (Auto) 32.3 H Lymph # (Auto) 0.5 L Clarke # (Auto) 1.7 H Eos # (Auto) 0.0 Baso # (Auto) 0.1 Neutrophils % (Manual) 90 H Band Neutrophils % 4 H Lymphocytes % (Manual) 3 L Monocytes % (Manual) 3 Platelet Estimate Normal Anisocytosis (manual) Slight Macrocytosis (manual) Slight PT 22.1 H INR 1.9 APTT 35.0 Sodium 132 Potassium 5.3 H Chloride 98 Carbon Dioxide 21 L Anion Gap 18 BUN 88 H Creatinine 2.4 H Est GFR ( Amer) 32 Est GFR (Non-Af Amer) 26 Random Glucose 317 H Lactic Acid Calcium 8.3 L Phosphorus 4.4 Magnesium 2.1 Total Bilirubin 9.1 H AST 223 H ALT 366 H D Alkaline Phosphatase 230 H Ammonia Lactate Dehydrogenase 946 H Troponin I 0.1240 H* NT-Pro-B Natriuret Pep 5860 H Total Protein 6.2 L Albumin 2.0 L Globulin 4.1 H Albumin/Globulin Ratio 0.5 L Amylase 64 Lipase 135 Blood Type Antibody Screen BBK History Checked 02/15/18 02/15/18 02/15/18 18:43 19:45 19:45 WBC RBC Hgb Hct MCV MCH MCHC RDW Plt Count MPV Neut % (Auto) Lymph % (Auto) Clarke % (Auto) Eos % (Auto) Baso % (Auto) Neut # (Auto) Lymph # (Auto) Clarke # (Auto) Eos # (Auto) Baso # (Auto) Neutrophils % (Manual) Band Neutrophils % Lymphocytes % (Manual) Monocytes % (Manual) Platelet Estimate Anisocytosis (manual) Macrocytosis (manual) PT INR APTT Sodium Potassium Chloride Carbon Dioxide Anion Gap BUN Creatinine Est GFR ( Amer) Est GFR (Non-Af Amer) Random Glucose Lactic Acid 4.3 H* Calcium Phosphorus Magnesium Total Bilirubin AST ALT Alkaline Phosphatase Ammonia 64 H D Lactate Dehydrogenase Troponin I NT-Pro-B Natriuret Pep Total Protein Albumin Globulin Albumin/Globulin Ratio Amylase Lipase Blood Type O POSITIVE Antibody Screen Negative BBK History Checked Patient has bt - Imaging and Cardiology Chest x-ray Status: Image reviewed by me Additional comment: No active disease. Assessment & Plan - Assessment and Plan (Free Text) Assessment: #. AMS #. Leukocytosis #. Acute renal Failure #. Liver Cirrhosis with Ascites #. Elevated troponin 3. elevated BNP #. Hyperkalemia #. Colon CA #. Transaminitis #. Hyperglycemia Plan: 83 years old male with hx of HTN; HLD; Liver cancer receiving chemotherapy. He was last admitted on 02/09/18 and discharged on 02/11/18 after Partacentesis and dx of Hepatic encephalopathy. He is now brought to the ED because of progressive weakness, lethargy, very sleepy with poor intake. No vomits nor diarrhea. He refers diffuse abdominal pains, no nausea nor vomits. #. AMS Secondary to Hepatic and metabolic encephalopathy - Decrease Ammonia with Lactulose Q 8H - Treat Renal failure #. Leukocytosis with abdominal tenderness, caused by Spontaneous bacterial Peritonitis - Consult GI - Paracentesis - Zosyn - Pain management #. Acute renal Failure with Transaminitis r/o Hepatorenal syndrome - Consult nephrology Dr Garrett - IV Fluids - Follow Renal labs #. Liver Cirrhosis with Ascites - GI on consult - Rifaximin - Lactulose #. Liver Cancer - To follow up with his Oncologist: Dr Gerson Kate at [facility]. #. Elevated troponin probably secondary to the Renal Failure - Cardiology consult Dr Murphy - Serial Troponin #. Elvated BNP - cardiology on consult - hold Lasix at this time #. Hyperglycemia - Lispro sliding scale according to accucheck - HbA1c 6.1 on 01/15/18 #. DVT Prophylaxis with heparin and SCD #. code Status: DNI /DNR - Date & Time Date: 02/15/18 Time: 21:00
[2018-02-15 21:08] LABS: SQUAMOUS EPITHIAL < 1 /hpf (0-5); URINE AMORPHOUS SEDIMENT RARE /ul (<OCC); URINE BACTERIA RARE (<OCC); URINE BILIRUBIN SMALL (NEGATIVE); URINE BLOOD NEGATIVE (NEGATIVE); URINE CLARITY SLIGHTY-CLOUDY (Clear); URINE COLOR AMBER (YELLOW); URINE GLUCOSE (UA) NEG (NEGATIVE); URINE LEUKOCYTE ESTERASE NEG Leu/uL (Negative); URINE PROTEIN NEGATIVE (NEGATIVE)
[2018-02-15] MEDS ORDERED: Insulin Regular 100 units/ml SC STA (21:51)
[2018-02-15] MEDS ORDERED: Sodium Chloride 0.9% 1,000 ML IV SCH (22:00)
[2018-02-16] MEDS: Insulin Lispro (humaLOG) 100 Units/ml Inj SC SCH ×2 (04:30→13:57)
[2018-02-16 05:28] LABS: ALB/GLOB RATIO 0.6 (1.0-2.1); ALBUMIN 2.5 g/dL (3.5-5.0)
[2018-02-16 05:42] LABS: TROPONIN I 0.12 ng/mL (0.00-0.120)
[2018-02-16 05:45] LABS: HEMOGLOBIN 12.9 g/dL (12.0-18.0); MEAN CELL VOLUME 109.8 fl (80.0-94.0); MEAN CORPUSCULAR HGB CONC 32.8 g/dL (33.0-37.0); PLATELET COUNT 126 K/uL (130-400); RBC 3.58 Mil/uL (4.40-5.90); RED CELL DISTRIBUTION WIDTH 19.1 % (11.5-14.5); WHITE BLOOD COUNT 31.1 K/uL (4.8-10.8)
[2018-02-16] MEDS ORDERED: Dextrose 50% SYRINGE Inj (50 ml) IVP STA (06:06)
[2018-02-16] MEDS ORDERED: Insulin Regular 100 units/ml IV STA (06:07)
[2018-02-16] MEDS ORDERED: Sodium Bicarbonate 7.5% (0.9 MEQ/ML) 50ML INJ IV ONE (06:08)
[2018-02-16] MEDS: Sod Polystyrene Sulf 15 gm/60 ml Susp PO ONE ×2 (06:36→08:21)
[2018-02-16] MEDS ORDERED: Albumin Human 25% (12.5 gm/50 ml) IV ONE (07:36)
[2018-02-16] MEDS ORDERED: Albumin Human 25% (12.5 gm/50 ml) IV SCH (07:45)
--- NOTE | 2018-02-16 07:49 | CP.PCM.PN ---
Subjective - Date & Time of Evaluation Date of Evaluation: 02/16/18 Time of Evaluation: 07:47 - Subjective Subjective: drowsy, not arousable Objective - Vital Signs/Intake and Output Vital Signs (last 24 hours): Temp Pulse Resp BP Pulse Ox 97.5 F L 93 H 17 90/75 L 98 02/16/18 04:00 02/16/18 06:00 02/16/18 06:00 02/16/18 06:00 02/16/18 06:00 Intake and Output: 02/16/18 02/16/18 06:59 18:59 Intake Total 150 Balance 150 - Medications Medications: Current Medications Albumin Human (Albumin Human 25% (12.5 Gm/50 Ml)) 25 gm IV Q6H [facility] Stop: 02/17/18 01:46 Aspirin (Aspirin Chewable) 81 mg PO DAILY [facility] Sodium Chloride (Sodium Chloride 0.9%) 1,000 mls @ 75 mls/hr IV .[id number] [facility] Stop: 02/16/18 11:19 Last Admin: 02/15/18 22:00 Dose: 75 mls/hr Piperacillin Sod/Tazobactam (Sod 2.25 gm/ Sodium Chloride) 100 mls @ 100 mls/hr IVPB Q8H REA; Protocol Insulin Human Lispro (Humalog) 0 units SC Q6 REA; Protocol Last Admin: 02/16/18 04:30 Dose: Not Given Lactulose (Enulose) 20 gm PO Q8H REA Last Admin: 02/16/18 05:33 Dose: 20 gm Megestrol Acetate (Megace) 40 mg PO BID [facility] Metoprolol Tartrate (Lopressor) 12.5 mg PO Q12 [facility] Last Admin: 02/15/18 22:24 Dose: Not Given Pantoprazole Sodium (Protonix Inj) 40 mg IVP DAILY [facility] Rifaximin (Xifaxan) 550 mg PO BID [facility]; Protocol - Labs Labs: 02/16/18 05:39 02/16/18 04:19 PT 22.1 Seconds (9.8-13.1) H 02/15/18 18:43 INR 1.9 02/15/18 18:43 APTT 35.0 Seconds (25.6-37.1) 02/15/18 18:43 - Head Exam Head Exam: ATRAUMATIC - Eye Exam Eye Exam: Scleral icterus - ENT Exam ENT Exam: Mucous Membranes Dry - Neck Exam Neck Exam: Full ROM - Respiratory Exam Respiratory Exam: Clear to Ausculation Bilateral, NORMAL BREATHING PATTERN. absent: Rales, Rhonchi, Wheezes, Respiratory Distress, Stridor - Cardiovascular Exam Cardiovascular Exam: REGULAR RHYTHM, +S1, +S2 - GI/Abdominal Exam GI & Abdominal Exam: Distended, Soft, Organomegaly. absent: Firm, Guarding, Rigid, Tenderness, Rebound - Extremities Exam Extremities Exam: Pedal Edema - Neurological Exam Neurological Exam: Altered Assessment and Plan - Assessment and Plan (Free Text) Assessment: 83 y/o male with known liver cirrhosis, h/o liver lesion (known liver cancer) being evaluated for failure to thrive, dehydration. -Failure to thrive: underlying liver cirrhosis, ammonia normal, suspect chronic -LIver cirrhosis: poor prognosis, no regrowth of liver, avoid hepatotoxic drugs (including chemotherapy), monitor to keep 3 Bm/day with lactulsoe -Abdominal ascites: continue to monitor, avoid fluid overloaded states -(+)trop: in light of renal failure, trend in trop is very low -hyperpotassmiea: no EKG changes, oral keyexelate, renal diet -CKD: suspect hepato renal failure: IV infusion of albumin -DVT ppx at risk of bleeding: INR high (1.9) -PUD ppx protonix Overall prognosis poor d/w patient's son who was informed of above diagnosis and poor prognosis. -heme/onc eval pending -Palliative eval pending Progosis very poor given age, and multiorgan failure with liver cancer d/w ICu team
[2018-02-16] MEDS ORDERED: Chlorhexidine Gluconate 1 APPL/PKT TP ONE (08:41)
[2018-02-16 09:34] LABS: BANDS 1 % (0-2); LYMPHOCYTE 2 % (20-50); MONOCYTE 6 % (0-10); MYELOCYTE 2 % (0-0); NEUTROPHIL 89 % (42-75); TOTAL CELLS COUNTED 100
[2018-02-16 09:36] LABS: PLATELET ESTIMATE SLIGHTLY DECREASED (NORMAL)
[2018-02-16 09:37] LABS: ANISOCYTOSIS SLIGHT
[2018-02-16 09:39] LABS: OVALOCYTES SLIGHT
[2018-02-16 09:42] LABS: BURR CELLS SLIGHT; SCHISTOCYTES SLIGHT
[2018-02-16 09:48] LABS: LARGE PLATELETS PRESENT; PLATELET CLUMPS PRESENT
[2018-02-16 12:27] VITALS: TEMP 98.3; O2SAT 100
--- NOTE | 2018-02-16 13:01 | CP.PCM.DIS ---
<Abby Fisher - Last Filed: 02/16/18 17:47> Provider - Provider Date of Admission: 02/15/18 20:20 Attending physician: Ivan Flores Primary care physician: PMD: Demian Brody Liver doctor: Dr. Vazquez. Consults: 02/15/18 20:21 Cardiology Consult Stat Comment: Consulting Provider: Manan Murphy Consulting Physician: Manan Murphy Reason for Consult: elevated troponin 02/15/18 21:06 Nephrology Consult Routine Comment: Consulting Provider: Urbano Garrett Consulting Physician: Urbano Garrett Reason for Consult: Acute Renal Failure with elevated liver enzymes 02/15/18 21:10 Gastroenterology Consult Routine Comment: Consulting Provider: Abrahan Brasher Consulting Physician: Abrahan Brasher Reason for Consult: Liver cirrhosis/elevated liver enzymes/Liver Ca 02/16/18 00:12 Case Management Referral Routine Comment: liver Ca, multiple hospital visits Physician Instructions: Reason For Exam: discharge planning Reason for Referral: Discharge Planning Nursing Referral for Palliative Care Routine Comment: Consulting Provider: Nicole Graham Physician Instructions: Reason For Exam: multiple hospital visits, liver Ca Time Spent in preparation of Discharge (in minutes): 30 Diagnosis - Discharge Diagnosis (1) Hepatic encephalopathy Status: Acute (2) Elevated troponin Status: Acute (3) Acute renal failure Status: Acute (4) Cirrhosis Status: Chronic (5) Ascites Status: Chronic (6) Hyperglycemia Status: Acute Hospital Course - Lab Results Lab Results: Most Recent Lab Values WBC 31.1 K/uL (4.8-10.8) H 02/16/18 05:39 RBC 3.58 Mil/uL (4.40-5.90) L 02/16/18 05:39 Hgb 12.9 g/dL (12.0-18.0) 02/16/18 05:39 Hct 39.3 % (35.0-51.0) 02/16/18 05:39 MCV 109.8 fl (80.0-94.0) H D 02/16/18 05:39 MCH 36.0 pg (27.0-31.0) H 02/16/18 05:39 MCHC 32.8 g/dL (33.0-37.0) L 02/16/18 05:39 RDW 19.1 % (11.5-14.5) H 02/16/18 05:39 Plt Count 126 K/uL (130-400) L D 02/16/18 05:39 MPV 9.7 fl (7.2-11.7) 02/15/18 18:43 Neut % (Auto) 93.4 % (50.0-75.0) H 02/15/18 18:43 Lymph % (Auto) 1.5 % (20.0-40.0) L 02/15/18 18:43 Sutter % (Auto) 4.9 % (0.0-10.0) 02/15/18 18:43 Eos % (Auto) 0.0 % (0.0-4.0) 02/15/18 18:43 Baso % (Auto) 0.2 % (0.0-2.0) 02/15/18 18:43 Neut # (Auto) 32.3 K/uL (1.8-7.0) H 02/15/18 18:43 Lymph # (Auto) 0.5 K/uL (1.0-4.3) L 02/15/18 18:43 Sutter # (Auto) 1.7 K/uL (0.0-0.8) H 02/15/18 18:43 Eos # (Auto) 0.0 K/uL (0.0-0.7) 02/15/18 18:43 Baso # (Auto) 0.1 K/uL (0.0-0.2) 02/15/18 18:43 Neutrophils % (Manual) 89 % (42-75) H 02/16/18 05:39 Band Neutrophils % 1 % (0-2) 02/16/18 05:39 Lymphocytes % (Manual) 2 % (20-50) L 02/16/18 05:39 Monocytes % (Manual) 6 % (0-10) 02/16/18 05:39 Myelocytes % 2 % (0-0) H 02/16/18 05:39 Platelet Estimate Slightly decreased (NORMAL) L 02/16/18 05:39 Plt Clumps, EDTA Present 02/16/18 05:39 Large Platelets Present 02/16/18 05:39 Anisocytosis (manual) Slight 02/16/18 05:39 Macrocytosis (manual) Moderate 02/16/18 05:39 Ovalocytes Slight 02/16/18 05:39 Hulett Cells Slight 02/16/18 05:39 Schistocytes Slight 02/16/18 05:39 PT 22.1 Seconds (9.8-13.1) H 02/15/18 18:43 INR 1.9 02/15/18 18:43 APTT 35.0 Seconds (25.6-37.1) 02/15/18 18:43 Sodium 131 mmol/l (132-148) L 02/16/18 04:19 Potassium 5.9 MMOL/L (3.6-5.0) H 02/16/18 04:19 Chloride 101 mmol/L (98-107) 02/16/18 04:19 Carbon Dioxide 19 mmol/L (22-30) L 02/16/18 04:19 Anion Gap 17 (10-20) 02/16/18 04:19 BUN 92 mg/dl (9-20) H 02/16/18 04:19 Creatinine 2.4 mg/dl (0.8-1.5) H 02/16/18 04:19 Est GFR ( Amer) 32 02/16/18 04:19 Est GFR (Non-Af Amer) 26 02/16/18 04:19 POC Glucose (mg/dL) 158 mg/dL (65-110) H 02/16/18 04:44 Random Glucose 143 mg/dL (75-110) H 02/16/18 04:19 Lactic Acid 4.5 MMOL/L (0.7-2.1) H* 02/16/18 08:08 Calcium 8.0 mg/dL (8.4-10.2) L 02/16/18 04:19 Phosphorus 4.3 mg/dl (2.5-4.5) 02/16/18 04:19 Magnesium 2.2 MG/DL (1.6-2.3) 02/16/18 04:19 Total Bilirubin 9.5 mg/dl (0.2-1.3) H 02/16/18 04:19 AST 240 U/L (17-59) H 02/16/18 04:19 ALT 296 U/L (21-72) H 02/16/18 04:19 Alkaline Phosphatase 212 U/L (38-126) H 02/16/18 04:19 Ammonia 27 umo/L (16-60) D 02/16/18 08:08 Lactate Dehydrogenase 946 U/L (313-618) H 02/15/18 18:43 Troponin I 0.1250 ng/mL (0.00-0.120) H* 02/16/18 09:55 NT-Pro-B Natriuret Pep 5860 pg/ml (0-900) H 02/15/18 18:43 Total Protein 6.9 G/DL (6.3-8.2) 02/16/18 04:19 Albumin 2.5 g/dL (3.5-5.0) L D 02/16/18 04:19 Globulin 4.4 gm/dL (2.2-3.9) H 02/16/18 04:19 Albumin/Globulin Ratio 0.6 (1.0-2.1) L 02/16/18 04:19 Amylase 64 U/L (30-110) 02/15/18 18:43 Lipase 135 U/L (23-300) 02/15/18 18:43 Urine Color Akiko (YELLOW) 02/15/18 20:30 Urine Clarity Slighty-cloudy (Clear) 02/15/18 20:30 Urine pH 5.0 (5.0-8.0) 02/15/18 20:30 Ur Specific [place] 1.015 (1.003-1.030) 02/15/18 20:30 Urine Protein Negative mg/dL (NEGATIVE) 02/15/18 20:30 Urine Glucose (UA) Neg mg/dL (NEGATIVE) 02/15/18 20:30 Urine Ketones Negative mg/dL (NEGATIVE) 02/15/18 20:30 Urine Blood Negative (NEGATIVE) 02/15/18 20:30 Urine Nitrate Negative (NEGATIVE) 02/15/18 20:30 Urine Bilirubin Small (NEGATIVE) 02/15/18 20:30 Urine Urobilinogen 4.0 mg/dL (0.2-1.0) 02/15/18 20:30 Ur Leukocyte Esterase Neg Gilma/uL (Negative) 02/15/18 20:30 Urine RBC (Auto) < 1 /hpf (0-3) 02/15/18 20:30 Urine Microscopic WBC 1 /hpf (0-5) 02/15/18 20:30 Ur Squamous Epith Cells < 1 /hpf (0-5) 02/15/18 20:30 Amorphous Sediment Rare /ul (<OCC) H 02/15/18 20:30 Urine Bacteria Rare (<OCC) 02/15/18 20:30 Hyaline Casts 3-5 /hpf (0-2) H 02/15/18 20:30 Blood Type O POSITIVE 02/15/18 18:43 Antibody Screen Negative 02/15/18 18:43 BBK History Checked Patient has bt 02/15/18 18:43 - Hospital Course Hospital Course: 83 yo M, brought into hospital by his son due to altered mental status; pt has hx HTN, HLD, liver cancer receiving chemotherapy. He had a recent admission 02/09/18-02/11/18, dx was hepatic encephalopathy and he underwent paracentesis. Pt was found to have elevated white count, elevated troponin, ascites, hyperkalemia, hyperglycemia, suspected to have SBP. Initially, admitted to ICU, cardiology, nephrology, GI consulted, started on insulin, bicarb, kayexalate, antibiotics started. Family met with hospice nurse and decided on hospice care. Pt seen this am - laying in bed, awake but minimally responsive; withdrawing from pain/unpleasant stimuli. Not answering questions. Discharge Exam - Head Exam Head Exam: NORMOCEPHALIC - ENT Exam ENT Exam: Mucous Membranes Dry - Respiratory Exam Respiratory Exam: NORMAL BREATHING PATTERN. absent: Respiratory Distress - Cardiovascular Exam Cardiovascular Exam: REGULAR RHYTHM - GI/Abdominal Exam GI & Abdominal Exam: Distended, Normal Bowel Sounds, Soft - Extremities Exam Extremities exam: pedal edema - Neurological Exam Neurological exam: Altered - Skin Skin Exam: Warm Additional comments: jaundice Discharge Plan - Follow Up Plan Condition: CRITICAL Disposition: HOSPICE - MEDICAL FACILITY <Hyun Sahu - Last Filed: 02/16/18 18:54> Provider - Provider Date of Admission: 02/15/18 20:20 Attending physician: Ivan Flores Consults: 02/15/18 20:21 Cardiology Consult Stat Comment: Consulting Provider: Manan Murphy Consulting Physician: Manan Murphy Reason for Consult: elevated troponin 02/15/18 21:06 Nephrology Consult Routine Comment: Consulting Provider: Urbano Garrett Consulting Physician: Urbano Garrett Reason for Consult: Acute Renal Failure with elevated liver enzymes 02/15/18 21:10 Gastroenterology Consult Routine Comment: Consulting Provider: Abrahan Brasher Consulting Physician: Abrahan Brasher Reason for Consult: Liver cirrhosis/elevated liver enzymes/Liver Ca 02/16/18 00:12 Case Management Referral Routine Comment: liver Ca, multiple hospital visits Physician Instructions: Reason For Exam: discharge planning Reason for Referral: Discharge Planning Nursing Referral for Palliative Care Routine Comment: Consulting Provider: Nicole Graham Physician Instructions: Reason For Exam: multiple hospital visits, liver Ca Hospital Course - Lab Results Lab Results: Most Recent Lab Values WBC 31.1 K/uL (4.8-10.8) H 02/16/18 05:39 RBC 3.58 Mil/uL (4.40-5.90) L 02/16/18 05:39 Hgb 12.9 g/dL (12.0-18.0) 02/16/18 05:39 Hct 39.3 % (35.0-51.0) 02/16/18 05:39 MCV 109.8 fl (80.0-94.0) H D 02/16/18 05:39 MCH 36.0 pg (27.0-31.0) H 02/16/18 05:39 MCHC 32.8 g/dL (33.0-37.0) L 02/16/18 05:39 RDW 19.1 % (11.5-14.5) H 02/16/18 05:39 Plt Count 126 K/uL (130-400) L D 02/16/18 05:39 MPV 9.7 fl (7.2-11.7) 02/15/18 18:43 Neut % (Auto) 93.4 % (50.0-75.0) H 02/15/18 18:43 Lymph % (Auto) 1.5 % (20.0-40.0) L 02/15/18 18:43 Sutter % (Auto) 4.9 % (0.0-10.0) 02/15/18 18:43 Eos % (Auto) 0.0 % (0.0-4.0) 02/15/18 18:43 Baso % (Auto) 0.2 % (0.0-2.0) 02/15/18 18:43 Neut # (Auto) 32.3 K/uL (1.8-7.0) H 02/15/18 18:43 Lymph # (Auto) 0.5 K/uL (1.0-4.3) L 02/15/18 18:43 Sutter # (Auto) 1.7 K/uL (0.0-0.8) H 02/15/18 18:43 Eos # (Auto) 0.0 K/uL (0.0-0.7) 02/15/18 18:43 Baso # (Auto) 0.1 K/uL (0.0-0.2) 02/15/18 18:43 Neutrophils % (Manual) 89 % (42-75) H 02/16/18 05:39 Band Neutrophils % 1 % (0-2) 02/16/18 05:39 Lymphocytes % (Manual) 2 % (20-50) L 02/16/18 05:39 Monocytes % (Manual) 6 % (0-10) 02/16/18 05:39 Myelocytes % 2 % (0-0) H 02/16/18 05:39 Platelet Estimate Slightly decreased (NORMAL) L 02/16/18 05:39 Plt Clumps, EDTA Present 02/16/18 05:39 Large Platelets Present 02/16/18 05:39 Anisocytosis (manual) Slight 02/16/18 05:39 Macrocytosis (manual) Moderate 02/16/18 05:39 Ovalocytes Slight 02/16/18 05:39 Hulett Cells Slight 02/16/18 05:39 Schistocytes Slight 02/16/18 05:39 PT 22.1 Seconds (9.8-13.1) H 02/15/18 18:43 INR 1.9 02/15/18 18:43 APTT 35.0 Seconds (25.6-37.1) 02/15/18 18:43 Sodium 131 mmol/l (132-148) L 02/16/18 04:19 Potassium 5.9 MMOL/L (3.6-5.0) H 02/16/18 04:19 Chloride 101 mmol/L (98-107) 02/16/18 04:19 Carbon Dioxide 19 mmol/L (22-30) L 02/16/18 04:19 Anion Gap 17 (10-20) 02/16/18 04:19 BUN 92 mg/dl (9-20) H 02/16/18 04:19 Creatinine 2.4 mg/dl (0.8-1.5) H 02/16/18 04:19 Est GFR ( Amer) 32 02/16/18 04:19 Est GFR (Non-Af Amer) 26 02/16/18 04:19 POC Glucose (mg/dL) 164 mg/dL (65-110) H 02/16/18 11:11 Random Glucose 143 mg/dL (75-110) H 02/16/18 04:19 Lactic Acid 4.5 MMOL/L (0.7-2.1) H* 02/16/18 08:08 Calcium 8.0 mg/dL (8.4-10.2) L 02/16/18 04:19 Phosphorus 4.3 mg/dl (2.5-4.5) 02/16/18 04:19 Magnesium 2.2 MG/DL (1.6-2.3) 02/16/18 04:19 Total Bilirubin 9.5 mg/dl (0.2-1.3) H 02/16/18 04:19 AST 240 U/L (17-59) H 02/16/18 04:19 ALT 296 U/L (21-72) H 02/16/18 04:19 Alkaline Phosphatase 212 U/L (38-126) H 02/16/18 04:19 Ammonia 27 umo/L (16-60) D 02/16/18 08:08 Lactate Dehydrogenase 946 U/L (313-618) H 02/15/18 18:43 Troponin I 0.1250 ng/mL (0.00-0.120) H* 02/16/18 09:55 NT-Pro-B Natriuret Pep 5860 pg/ml (0-900) H 02/15/18 18:43 Total Protein 6.9 G/DL (6.3-8.2) 02/16/18 04:19 Albumin 2.5 g/dL (3.5-5.0) L D 02/16/18 04:19 Globulin 4.4 gm/dL (2.2-3.9) H 02/16/18 04:19 Albumin/Globulin Ratio 0.6 (1.0-2.1) L 02/16/18 04:19 Amylase 64 U/L (30-110) 02/15/18 18:43 Lipase 135 U/L (23-300) 02/15/18 18:43 Urine Color Akiko (YELLOW) 02/15/18 20:30 Urine Clarity Slighty-cloudy (Clear) 02/15/18 20:30 Urine pH 5.0 (5.0-8.0) 02/15/18 20:30 Ur Specific [place] 1.015 (1.003-1.030) 02/15/18 20:30 Urine Protein Negative mg/dL (NEGATIVE) 02/15/18 20:30 Urine Glucose (UA) Neg mg/dL (NEGATIVE) 02/15/18 20:30 Urine Ketones Negative mg/dL (NEGATIVE) 02/15/18 20:30 Urine Blood Negative (NEGATIVE) 02/15/18 20:30 Urine Nitrate Negative (NEGATIVE) 02/15/18 20:30 Urine Bilirubin Small (NEGATIVE) 02/15/18 20:30 Urine Urobilinogen 4.0 mg/dL (0.2-1.0) 02/15/18 20:30 Ur Leukocyte Esterase Neg Gilma/uL (Negative) 02/15/18 20:30 Urine RBC (Auto) < 1 /hpf (0-3) 02/15/18 20:30 Urine Microscopic WBC 1 /hpf (0-5) 02/15/18 20:30 Ur Squamous Epith Cells < 1 /hpf (0-5) 02/15/18 20:30 Amorphous Sediment Rare /ul (<OCC) H 02/15/18 20:30 Urine Bacteria Rare (<OCC) 02/15/18 20:30 Hyaline Casts 3-5 /hpf (0-2) H 02/15/18 20:30 Blood Type O POSITIVE 02/15/18 18:43 Antibody Screen Negative 02/15/18 18:43 BBK History Checked Patient has bt 02/15/18 18:43 Attending/Attestation - Attestation I have personally seen and examined this patient.: Yes I have fully participated in the care of the patient.: Yes I have reviewed all pertinent clinical information, including history, physical exam and plan: Yes Notes (Text): Diagnoses: 1. Sepsis prob due to Spontaneous Bacterial Peritonitis ( POA) 2. Metastatic Liver Cancer 3. Acute Kidney Injury on CKD Stage III 4. Malignant Ascites, large 5. Hepatic Encephalopathy 6. Cirrhosis 7. Troponin Elevation prob due to Sepsis Discussed with Sons Roscoe and Han test results, diagnoses , treatment plan and poor prognosis. Both sons did not want any more aggressive treatment and wanted their father to be comfortable. Hospice Care consulted - sons want pt to be Hospice Care. Will d/c pt to Inpatient Hospice
[2018-02-16 14:02] VITALS: BP 106/56; PULSE 87; RESP 14
--- NOTE | 2018-02-17 01:33 | CON ---
DATE: 02/16/2018 CARDIOLOGY CONSULTATION The dictation will be limited to the accessible reports from [employer] database, which is not appropriately functioning today as it does not access most of the report in text format. The history was obtained from the patient's sons who are at the bedside. HISTORY OF PRESENT ILLNESS: The patient is an 83-year-old male who has a history of liver cancer, being treated at [facility]. Most recent chemotherapy was around 09/2017. The patient also underwent more than abdominal thoracocentesis for ascites. The patient was brought in by the family because of extreme weakness and lethargy. No reported chest pain. The family are unaware of any history of heart attack in the past. SOCIAL HISTORY: Nonsmoker, nondrinker. He lives with his family at home. MEDICATIONS: Albumin infusion 25 g every 6 hours, aspirin 81 mg once a day, Enulose 20 mg every 8 hours, Lopressor 12.5 mg twice a day, which is currently on hold, Zosyn at 2.25 g intravenously every 8 hours, Protonix 40 mg intravenously once a day, rifaximin 550 mg twice a day. REVIEW OF SYSTEMS: No reported seizures, no reported hematemesis, and no reported chest pain by the family. PHYSICAL EXAMINATION: GENERAL: The patient is an elderly male who is currently lethargic, does not appear to be in respiratory distress. VITAL SIGNS: Blood pressure 91/54, heart rate 93, temperature 97.8, respirations 18. HEENT: Normocephalic. CHEST: Diminished breath sounds bilaterally with poor air entry. HEART: S1 and S2 are regular. ABDOMEN: Moderate ascites. EXTREMITIES: Trace leg edema. LABORATORY DATA: Today's hemoglobin and hematocrit 12.9 and 39.3, white count 31.1, platelet count 126,000. Today's SMA-7: Sodium 131, potassium 5.9, chloride 101, CO2 of 19, glucose 143, BUN 92, creatinine 2.4. AST and ALT are 240 and 296 respectively, alkaline phosphatase is 212. Troponin is 0.125, borderline elevated. INR is 1.9 and PTT is 35. 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 ASSESSMENT: 1. Advanced liver carcinoma with recurrent ascites. The patient underwent abdominal MRI on 02/09/2018, a week ago. However, that report is not accessible at [facility] database at this time. 2. Borderline troponin elevation, rule out non-ST elevation myocardial infarction. 3. Abnormal electrocardiogram with evidence of bifascicular block i.e. right bundle-branch block with left anterior fascicular block. 4. Mild thrombocytopenia. 5. Hyponatremia and hyperkalemia. 6. Chronic renal insufficiency. RECOMMENDATIONS: Continue current supportive measures including IV albumin infusion. Continue Zosyn at 2.25 g intravenously every 8 hours. The family requested DNR status. The patient is currently being evaluated for hospice placement. For now, no aggressive cardiac workup is reasonable choice at this time. We will obtain bedside echocardiographic study and continue current symptomatic management. Manan Murphy MD
--- NOTE | 2018-02-17 01:35 | CON ---
DATE: 02/16/2018 NEPHROLOGY CONSULTATION HISTORY OF PRESENT ILLNESS: Patient is an 83-year-old male with past medical history of liver cancer, hepatic encephalopathy, diabetes, hypertension, brought to the ED with history of progressive weakness and lethargy. Nephrology being consulted for acute renal failure. The patient was just discharged on 02/11/2018 after presenting with generalized weakness, confusion and increased abdominal distention. Was treated for hepatic encephalopathy and also has abdominal paracentesis with drainage of 4 L of the ascetic fluid. The patient per family has been excessively sleepy also getting jaundiced; having poor p.o. intake since being discharged. No nausea and vomiting per record. Otherwise patient is unable to give any history. Patient was admitted to ICU for multiorgan failure. PAST MEDICAL HISTORY: As above. SOCIAL HISTORY: Former smoker. FAMILY HISTORY: Unknown. REVIEW OF SYSTEMS: Limited as mentioned above. PHYSICAL EXAMINATION: VITAL SIGNS: Blood pressure 96/51, heart rate 88, respirations 16, temperature 98.3, O2 saturation 100% on 2 L, O2 via nasal cannula. GENERAL: Patient is arousable and opens eyes, but otherwise nonverbal, not responding to verbal stimuli. HEENT: Moist mucous membranes. NECK: No cervical lymphadenopathy. RESPIRATORY: Lungs clear to auscultation bilaterally. No rales or rhonchi. No wheezes. CARDIOVASCULAR: Heart sounds S1 and S2 normal. No murmurs, gallops or rubs. GI: Abdomen soft. Not significantly distended. : No bladder distention. EXTREMITIES: 2+ bilateral lower leg edema with shriveled skin. Cold feet. Warm hands. SKIN: No cyanosis. NEUROLOGIC: Patient with spontaneous myoclonic jerks of upper extremity bilaterally. LABORATORY DATA: CBC: WBC 31.1, hemoglobin 12.9, and hematocrit 39.3, platelets 126. Chemistry panel: Sodium 131, potassium 5.9, chloride 101, bicarb 19, BUN 92, creatinine 2.4, glucose 143, calcium 8, phosphorus 4.3. AST 40, ALT 296, alkaline phosphatase 212, T.bilirubin, albumin 2.5, lactic acid 4.5. Coag, INR 1.9. Urine studies UA negative protein, negative blood. Chest x-ray directly visualized showing possible left-sided pleural effusion. ASSESSMENT AND PLAN: 1. Acute renal failure, patient with multiorgan dysfunction with acute renal failure, thrombocytopenia, troponin elevation, hypotension, and encephalopathy. Has significant hyperkalemia and increased anion gap, metabolic acidosis from lactic acidosis. Possibility of prerenal etiology in the setting of having his diuretics recently increased on discharge from [facility]; however, overall prognosis is very poor. The patient has underlying liver cancer and likely not clear with liver dysfunction; started on intravascular volume repletion with IV albumin agree with the same. Otherwise patient is being prepared for transition to hospice which is reasonable. Thank you for this referral. Urbano Garrett MD
--- NOTE | 2018-02-17 09:07 | CARD ---
APPROVED REPORT Date of service: 02/15/2018 EKG Measurement Heart [id number] <Conclusion> Normal sinus rhythm Right bundle branch block Left anterior fascicular block Bifascicular block Abnormal ECG
== END 2018-02-16 15:08 | disposition hospice, inpatient (51) | DRG 871 ==
LOC: H.ER 16:38 → H.ERHOLD 20:20 → H.ICU/CCU 21:42
PROVIDERS: ADMIT Internal Medicine; ATTEND Internal Medicine
DX: A41.9 Sepsis, unspecified organism (principal); K65.2 Spontaneous bacterial peritonitis; K76.7 Hepatorenal syndrome; G93.41 Metabolic encephalopathy; C78.7 Secondary malignant neoplasm of liver and intrahepatic bile duct; R18.0 Malignant ascites; E87.2 Acidosis; E87.1 Hypo-osmolality and hyponatremia; N17.9 Acute kidney failure, unspecified; I45.2 Bifascicular block; D69.6 Thrombocytopenia, unspecified; E87.5 Hyperkalemia; K72.90 Hepatic failure, unspecified without coma; K74.69 Other cirrhosis of liver; R62.7 Adult failure to thrive; N18.3 Chronic kidney disease, stage 3 (moderate); I12.9 Hypertensive chronic kidney disease with stage 1 through stage 4 chronic kidney disease, or unspecified chronic kidney disease; E11.65 Type 2 diabetes mellitus with hyperglycemia; E11.22 Type 2 diabetes mellitus with diabetic chronic kidney disease; D63.0 Anemia in neoplastic disease; E86.0 Dehydration; E78.5 Hyperlipidemia, unspecified; E78.00 Pure hypercholesterolemia, unspecified; Z51.5 Encounter for palliative care; Z66 Do not resuscitate; Z87.891 Personal history of nicotine dependence

== ENCOUNTER 2018-02-16 15:11 | Inpatient (IN) | payer OTHER ==
[2018-02-16 15:31] VITALS: BMI 29.6
[2018-02-16] MEDS ORDERED: Morphine 100 MG in Sodium Chloride 0.9% 100 ML IV SCH (15:45)
--- NOTE | 2018-02-17 11:26 | CP.PCM.HP ---
History of Present Illness - History of Present Illness History of Present Illness: 83 yo M, admitted to inpatient hospice care. On 02/15/18, was brought into hospital by his son due to altered mental status; pt has hx HTN, HLD, liver cancer. He had a recent admission 02/09/18-02/11/18, dx was hepatic encephalopathy and he underwent paracentesis. On 02/15/17 pt was found to have elevated white count, elevated troponin, ascites, hyperkalemia, hyperglycemia, suspected to have SBP. Initially, admitted to ICU, cardiology, nephrology, GI consulted, started on insulin, bicarb, kayexalate, antibiotics started. Later in the day yesterday, family met with hospice nurse and attending Dr. Sahu, and decided on hospice care. Pt seen this am - laying in bed, appears to be asleep. Son at bedside; son verbalized again that family decided on hospice care for this father, stated he wants his father to be comfortable and does not want to prolong his suffering. Stated he knows that he is only getting medication for pain and agitation, comfort measures, no specific treatment for medical conditions. Present on Admission - Present on Admission Any Indicators Present on Admission: No Review of Systems - Review of Systems Systems not reviewed;Unavailable: Altered Mental Status Past Patient History - Infectious Disease Hx of Infectious Diseases: None - Tetanus Immunizations Tetanus Immunization: Unknown - Past Medical History & Family History Past Medical History?: Yes - Past Social History Smoking Status: Unknown If Ever Smoked - CARDIAC Hx Cardiac Disorders: Yes Hx Heart Attack: Yes Hx Hypercholesterolemia: Yes Hx Hypertension: Yes Hx Hypotension: Yes Hx Mitral Valve Prolapse: No Hx Peripheral Edema: Yes - PULMONARY Hx Respiratory Disorders: No - NEUROLOGICAL Hx Neurological Disorder: No - HEENT Hx HEENT Problems: No - RENAL Hx Chronic Kidney Disease: No - ENDOCRINE/METABOLIC Hx Endocrine Disorders: Yes Hx Diabetes Mellitus Type 2: Yes - HEMATOLOGICAL/ONCOLOGICAL Hx Blood Disorders: Yes Hx Anemia: Yes Hx Human Immunodeficiency Virus (HIV): No - INTEGUMENTARY Hx Dermatological Problems: No - MUSCULOSKELETAL/RHEUMATOLOGICAL Hx Musculoskeletal Disorders: Yes Hx Arthritis: No Hx Back Pain: No Hx Falls: No Hx Unsteady Gait: Yes - GASTROINTESTINAL Hx Gastrointestinal Disorders: Yes Other/Comment: LIver CA - GENITOURINARY/GYNECOLOGICAL Hx Genitourinary Disorders: No - PSYCHIATRIC Hx Psychophysiologic Disorder: No Hx Substance Use: No - SURGICAL HISTORY Hx Surgeries: Yes Hx Herniorrhaphy: Yes (multiple) Other/Comment: son reports multiple procedures on liver-son does not know specifics - ANESTHESIA Hx Anesthesia: Yes Hx Anesthesia Reactions: No Hx Malignant Hyperthermia: No Has any member of the family had a problem w/ anesthesia?: No Meds Allergies/Adverse Reactions: Allergies Allergy/AdvReac Type Severity Reaction Status Date / Time No Known Allergies Allergy Verified 01/31/18 09:09 Physical Exam - Constitutional Appears: Chronically Ill - Head Exam Head Exam: ATRAUMATIC - ENT Exam ENT Exam: Mucous Membranes Dry - Respiratory Exam Respiratory Exam: Decreased Breath Sounds - Cardiovascular Exam Cardiovascular Exam: +S1, +S2 - GI/Abdominal Exam GI & Abdominal Exam: Distended - Neurological Exam Additional comments: not alert - Skin Skin Exam: Dry Additional comments: jaundice Results - Vital Signs Recent Vital Signs: Last Vital Signs Temp 98.1 F 02/17/18 08:15 Pulse 93 H 02/17/18 08:15 Resp 9 L 02/17/18 08:15 BP 92/49 L 02/17/18 08:15 Pulse Ox 94 L 02/17/18 08:15
[2018-02-17 16:45] VITALS: TEMP 98.4
[2018-02-18 02:16] VITALS: BP 64/38; PULSE 112; RESP 19; O2SAT 86
--- NOTE | 2018-02-18 02:20 | CP.PCM.PRO ---
Pronouncement of Note - Clinical Findings Physical Exam: No Response Verbal/Painful Stimuli, Absent Peripheral Puls es{Carotid & Femoral}, Absent Heart & Breath Sounds, No Pupillary Light Reflex, No Corneal Reflex, Pupils Fixed & Dilated, Absence of Vital Signs - Pronouncement Time Time of Pronouncement of : 01:59 - Notifications Pronouncement Notifications: Family Notified, Atending Notified Status Controller Notified: No - Autopsy Autopsy Requested: No - [place] [id number]
--- NOTE | 2018-02-18 07:34 | CP.PCM.DIS ---
Provider - Provider Date of Admission: 02/16/18 15:32 Attending physician: Ivan Flores Consults: 02/16/18 15:57 Nursing Referral for Palliative Care Routine Comment: Consulting Provider: Nicole Graham Physician Instructions: Reason For Exam: protocol Time Spent in preparation of Discharge (in minutes): 5 Diagnosis - Discharge Diagnosis (1) in hospice Status: Acute Hospital Course - Hospital Course Hospital Course: 83 yo M, hx HTN, HLD, metastatic liver cancer, s/p chemo with very poor prognosis was admitted to inpatient hospice care. Comfort measures started on admission to hospice. Pt pronounced at 0159 on 02/18/18. Discharge Plan - Follow Up Plan Condition:
== END 2018-02-18 01:59 | DRG 436 ==
LOC: H.ICU/CCU 15:32
PROVIDERS: ADMIT Internal Medicine; ATTEND Internal Medicine
DX: C78.7 Secondary malignant neoplasm of liver and intrahepatic bile duct (principal); R18.0 Malignant ascites; E11.65 Type 2 diabetes mellitus with hyperglycemia; E87.5 Hyperkalemia; I10 Essential (primary) hypertension; Z51.5 Encounter for palliative care; D64.9 Anemia, unspecified; E78.00 Pure hypercholesterolemia, unspecified; E78.5 Hyperlipidemia, unspecified; I25.2 Old myocardial infarction; Z92.21 Personal history of antineoplastic chemotherapy